=== PATIENT | female | born 1995 | race Caucasian/White ===

== ENCOUNTER 2020-04-11 00:08 | Emergency (ER) | payer OTHER, SELFPAY ==
--- NOTE | ~2020-04-11 | XR_ITS ---
EXAMINATION: XR hand RT min 3V EXAM DATE: 04/11/2020 01:19 INDICATION: Right hand pain. Initial encounter. TECHNIQUE: Right hand frontal, lateral and oblique projections obtained and reviewed. There is no pr ior study for comparison. FINDINGS: There is right-sided acute closed posttraumatic 5th metacarpal neck fracture with about 40 degrees of volar angulation. There is overlying soft tissue swelling. No other acute findings. IMPRESSION: Boxer's fracture. Reviewed, dictated and finalized at location A. AGE DYE STAND LOADER IMPRESSION: Boxer's fracture.
--- NOTE | ~2020-04-11 | XR_ITS ---
EXAMINATION: XR chest 1V portable EXAM DATE: 04/11/2020 01:19 INDICATION: Cough. TECHNIQUE: Portable AP frontal chest x-ray was obtained. There is no prior study for comparison. FINDINGS: The lungs are clear. There are no pleural effusions. The cardiomediastinal silhouette is within normal limits. There is no pneumothorax suspected. The bones and soft tissues are unremarkab le. IMPRESSION: No acute cardiopulmonary findings. Reviewed, dictated and finalized at location A. LITY MANAGER
[2020-04-11 00:10] VITALS: BP 159/87; PULSE 132; RESP 20; TEMP 36.9; O2SAT 98
--- NOTE | 2020-04-11 00:42 | PC.NURSE ---
pt talking with dr pearson. pt able to speak with ocmplete sentences with no cough noted since arrival to er.
[2020-04-11] MEDS: ACETAMINOPHEN/CODEINE (*CRX) 300/30 MG TABLET 1 TAB PO (01:00)
[2020-04-11 02:23] LABS: SARS-CoV-2 Ag Negative (Negative)
[2020-04-11 02:24] VITALS: BP 141/83; PULSE 94; RESP 20; TEMP 37.1; O2SAT 98
--- NOTE | 2020-04-11 02:28 | PC.NURSE ---
no cough noted per pt while in er.
--- NOTE | 2020-04-11 02:47 | ED.GENADULT ---
HPI - General Adult General Chief complaint: Upper Respiratory Infection Stated complaint: possible covid Time Seen by Provider: 04/11/20 00:20 Source: patient and family Limitations: no limitations History of Present Illness HPI narrative: Patient wants to be seen due to bad cough that has gone on for a few days. She has had a headache as well at times. She got mad she says and hit the wall with her right hand and also wishes to be seen for pain in her right hand. She points out swelling in the hand. Injury to hand happened 1 hour ago. Hand pain is moderately severe. She denies fever or chills. She denies any shortness of breath. Related Data Home Medications Medication Instructions Recorded Confirmed melatonin 10 mg BYMOUTH HS 04/11/20 04/11/20 sertraline 50 mg PO DAILY 04/11/20 04/11/20 Review of Systems Constitutional: Constitutional: Reports no additional constitutional complaints Eyes: Eyes: Reports no additional eye complaints ENT: Reports system reviewed and no additional complaints, except as documented Cardiovascular: Cardiovascular: Reports no additional cardiovascular complaints Respiratory: Respiratory: Reports no additional respiratory complaints Gastrointestinal: Gastrointestinal: Reports no additional gastrointestinal complaints Musculoskeletal: Comments: Pain in right hand on medial aspect in anatomical position. Hand is swollen over 5th metacarpal. She appears to have a Boxer's fracture by exam. Integumentary/Breasts: Skin/Breast: Reports system reviewed and no additional complaints, except as docu Neurologic: Comments: Headache at times that sounds like migraine in nature, with palsy of one side of face at times with headache. Psychiatric: Psychiatric: Reports no additional psychiatric complaints Endocrine: Endocrine: Reports no additional endocrine complaints Hematologic/Lymphatic: Hematologic/Lymphatic: Reports no additional hematologic/lymphatic complaints Allergic/Immunologic: Allergic/Immunologic: Reports no additional allergic/immunologic complaints [facility] Past Medical History Medical History (Updated 04/11/20 @ 03:13 by Deepak Leary MD) Anxiety Asthma Depression Migraine Surgical History Surgical History (Updated 04/11/20 @ 03:11 by Deepak Leary MD) No significant past surgical history Exam Const: General: healthy appearing and no acute distress Orientation/consciousness: patient oriented x3 HENMT: Head: normal to inspection Face and sinus: normal facial exam Eyes: Conjunctivae: conjunctivae normal Neck: Neck: normal visual inspection Chest: Chest palpation & inspection: normal inspection of the chest Resp: Effort & Inspection: normal respiratory effort Cardio: Rate: regular rate Rhythm: regular rhythm GI: GI Palp: Yes Soft to palpation Skin: General skin exam: normal color Neuro: General: patient oriented x3 Extrem: Other: Right hand appears to have boxers fracture with 5th metacarpal broken about 3/4 inch above MCP joint. pain is moderately severe at this area. ongoing throbbing since she hit the wall. Psych: Appearance: grossly normal Mental Status: mental status grossly normal Thought content: Yes Normal thought content present Course Course Emergency Course: Exam and history was obtained, then lab and plain films were obtained. She was then sent home with a script for tylenol #3 and an ocl splint for her hand boxers fracture. Vital Signs Vital signs: Vital Signs Temperature 36.9 C 04/11/20 00:10 Pulse Rate 132 H 04/11/20 00:10 Respiratory Rate 20 04/11/20 00:10 Blood Pressure 159/87 H 04/11/20 00:10 Pulse Oximetry 98 04/11/20 00:10 Temperature 37.1 C 04/11/20 02:24 Pulse Rate 94 04/11/20 02:24 Respiratory Rate 20 04/11/20 02:24 Blood Pressure 141/83 H 04/11/20 02:24 Pulse Oximetry 98 04/11/20 02:24 Procedures Other Procedure Procedure 1: Other Procedure: OCl splin
--- NOTE | 2020-04-11 03:32 | ED.GENADULT ---
HPI - General Adult General Chief complaint: Upper Respiratory Infection Stated complaint: possible covid Time Seen by Provider: 04/11/20 00:20 Source: patient and family Limitations: no limitations History of Present Illness HPI narrative: Patient has had cough for days. This has been more an aggravation than a concern Onset (ago): minute(s) Location: head Radiation: non-radiation and proximal Severity: mild Severity scale (1-10): 5 (headache after coughing) Quality: stabbing Relieving factors: none and rest Exacerbating factors: none Treatments prior to arrival: none Related Data Home Medications Medication Instructions Recorded Confirmed melatonin 10 mg BYMOUTH HS 04/11/20 04/11/20 sertraline 50 mg PO DAILY 04/11/20 04/11/20 Review of Systems Review of Systems: All systems reviewed & are unremarkable except as noted in HPI and below ROS unobtainable: Yes unobtainable due to endotracheal tube and unobtainable due to mental status Constitutional: Constitutional: Reports no additional constitutional complaints Eyes: Eyes: Reports no additional eye complaints ENT: Reports system reviewed and no additional complaints, except as documented Cardiovascular: Cardiovascular: Reports no additional cardiovascular complaints Respiratory: Respiratory: Reports no additional respiratory complaints Gastrointestinal: Gastrointestinal: Reports no additional gastrointestinal complaints Genitourinary: Genitourinary: Reports no additional female genitourinary complaints Musculoskeletal: Musculoskeletal: Reports no additional musculoskeletal complaints Integumentary/Breasts: Skin/Breast: Reports system reviewed and no additional complaints, except as docu Neurologic: Reports system reviewed and no additional complaints, except as documented Psychiatric: Psychiatric: Reports no additional psychiatric complaints Endocrine: Endocrine: Reports no additional endocrine complaints Hematologic/Lymphatic: Hematologic/Lymphatic: Reports no additional hematologic/lymphatic complaints Allergic/Immunologic: Allergic/Immunologic: Reports no additional allergic/immunologic complaints ON LICENSE OF [facility] Past Medical History Medical History (Updated 04/11/20 @ 03:13 by Deepak Leary MD) Anxiety Asthma Depression Migraine Surgical History Surgical History (Updated 04/11/20 @ 03:11 by Deepak Leary MD) No significant past surgical history Exam Const: General: no acute distress HENMT: Head: normal to inspection Eyes: Conjunctivae: conjunctivae normal Neck: Neck: normal visual inspection Chest: Chest palpation & inspection: normal inspection of the chest Resp: Effort & Inspection: normal respiratory effort Cardio: Rate: regular rate Rhythm: regular rhythm GI: Percussion: Yes normal to percussion : General: Yes no CVA tenderness Skin: General skin exam: normal color Rashes: no rashes Neuro: General: patient oriented x3 Extrem: General: normal to inspection Psych: Appearance: grossly normal Mental Status: mental status grossly normal Thought content: Yes Normal thought content present Course Course Emergency Course: exam negative, discussed results of film with her. Vital Signs Vital signs: Vital Signs Temperature 36.9 C 04/11/20 00:10 Pulse Rate 132 H 04/11/20 00:10 Respiratory Rate 20 04/11/20 00:10 Blood Pressure 159/87 H 04/11/20 00:10 Pulse Oximetry 98 04/11/20 00:10 Temperature 37.1 C 04/11/20 02:24 Pulse Rate 94 04/11/20 02:24 Respiratory Rate 20 04/11/20 02:24 Blood Pressure 141/83 H 04/11/20 02:24 Pulse Oximetry 98 04/11/20 02:24 Medical Decision Making Vital Signs Vital Signs: Vital Signs Temperature 36.9 C 04/11/20 00:10 Pulse Rate 132 H 04/11/20 00:10 Respiratory Rate 20 04/11/20 00:10 Blood Pressure 159/87 H 04/11/20 00:10 Pulse Oximetry 98 04/11/20 00:10 Temperature 37.1 C 04/11/20 02:24 Pulse Rate 94 04/11/20 02:24
== END 2020-04-11 02:56 | disposition home or self-care (01) ==
PROVIDERS: Emergency Provider Emergency Medicine
DX: S62.339A Displaced fracture of neck of unspecified metacarpal bone, initial encounter for closed fracture (principal); W22.01XA Walked into wall, initial encounter; Z20.828 Contact with and (suspected) exposure to other viral communicable diseases
CPT/HCPCS: 29125; 71045; 73130; 87426; 99283; 99284; A9270

== ENCOUNTER 2022-02-25 11:57 | Emergency (ER) | payer OTHER, MEDICAID, SELFPAY ==
[2022-02-25 11:59] VITALS: BP 125/82; PULSE 67; RESP 18; TEMP 36.7; O2SAT 100
[2022-02-25 12:07] VITALS: BP 125/82; PULSE 73; RESP 12; O2SAT 99
--- NOTE | 2022-02-25 12:15 | ED.ABDPAIN ---
HPI - Abdominal Pain General Chief Complaint: Abdominal Pain Stated Complaint: abd pain 2 weeks post Time Seen by Provider: 02/25/22 12:14 Source: patient Mode of arrival: ambulatory Limitations: no limitations History of Present Illness HPI narrative: 26 years old white female presents with umbilical hernia pain. Patient was sitting, suddenly felt pain at the umbilical hernia, bulging hernia, she denies any fever, chills, nausea, vomiting. Patient reported to having similar symptoms which started September 2021 during . Patient is 2 weeks , vaginal delivery. Related Data Home Medications Medication Instructions Recorded Confirmed melatonin 10 mg BYMOUTH HS 04/11/20 04/11/20 sertraline 50 mg PO DAILY 04/11/20 04/11/20 Allergies Allergy/AdvReac Type Severity Reaction Status Date / Time No Known Allergies Allergy Verified 02/25/22 12:11 Review of Systems Review of Systems: All systems reviewed & are unremarkable except as noted in HPI and below PMFSH Past Medical History Medical History Anxiety Asthma Depression Migraine Surgical History Surgical History No significant past surgical history Exam Narrative: General appearance: Well-developed, well-nourished Skin: Normal color Head: Normocephalic, nontraumatic Eyes: Clear conjunctiva ENT: Oropharynx normal, ears normal, nose normal Neck: Supple, nontender Chest and respiratory: Airway patent, no respiratory distress, no accessory muscle use Heart: Regular rate/rhythm Abdomen: Soft, tender, bulging, umbilical hernia, was easy to be reduced, and 5 seconds with gentle pressure patient feels great immediately Vascular: Normal peripheral pulses, normal capillary refill. Musculoskeletal: Normal range of motion, nontender back Neurologic: Alert and oriented ?3, SENIOR UX DESIGNER is normal as tested, no gross motor deficit Procedures Other Procedure Procedure 1: Other Procedure: I was able to reduce the umbilical hernia with gentle constant pressure, vertically with slight manipulation. 5 seconds. Course POLITICAL RESEARCHER/PA Physician Supervision Reducible umbilical hernia Vital Signs Vital signs: Vital Signs Temperature 36.7 C 02/25/22 11:59 Pulse Rate 67 02/25/22 11:59 Respiratory Rate 18 02/25/22 11:59 Blood Pressure 125/82 02/25/22 11:59 Pulse Oximetry 100 02/25/22 11:59 Oxygen Delivery Room Air 02/25/22 11:59 Temperature 36.7 C 02/25/22 11:59 Pulse Rate 67 02/25/22 11:59 Respiratory Rate 18 02/25/22 11:59 Blood Pressure 125/82 02/25/22 11:59 Pulse Oximetry 100 02/25/22 11:59 Oxygen Delivery Room Air 02/25/22 11:59 MDM - Abdominal Pain Differential Diagnosis Differential diagnosis: Likely abdominal pain and other (Umbilical hernia) Lab Data Result diagrams: 02/25/22 12:27 02/25/22 12:27 Labs: Lab Results 02/25/22 02/25/22 Range/Units 12:27 12:27 WBC 10.3 H (4.5-10.0) K/mm3 RBC 4.85 (4.2-5.4) M/mm3 Hgb 14.5 (12.0-15.0) g/dL Hct 43.7 (37.0-47.0) % MCV 90.1 (80-100) fl MCH 29.9 (26-34) pg MCHC 33.2 (32-36) g/dl RDW 13.8 (11.5-14.5) % Plt Count 315 (150-375) k/mm3 MPV 10.5 H (7.4-10.4) fl Immature Gran % (Auto) 0.4 (0-0.5) % Neut % (Auto) 69.1 (45.5-73.1) % Lymph % (Auto) 23.0 (18.3-44.2) % [place] % (Auto) 5.6 (2.6-8.5) % Eos % (Auto) 1.1 (0-4.4) % Baso % (Auto) 0.8 (0.2-1.2) % Lymph # (Auto) 2.36 (0.9-3.2) K/mm3 [place] # (Auto) 0.6 (0.1-0.6) K/mm3 Eos # (Auto) 0.1 (0-0.3) K/mm3 Baso # (Auto) 0.1 (0
[2022-02-25 12:16] VITALS: BP 123/84; PULSE 75; RESP 17; O2SAT 100
[2022-02-25 12:31] VITALS: BP 156/102; PULSE 77; RESP 14; O2SAT 99
[2022-02-25 12:43] LABS: Basophils Absolute Auto 0.1 K/mm3 (0.0-0.1); Basophils Percent Auto 0.8 % (0.2-1.2); Eosinophils Absolute Auto 0.1 K/mm3 (0-0.3); Eosinophils Percent Auto 1.1 % (0-4.4); Hematocrit 43.7 % (37.0-47.0); Hemoglobin 14.5 g/dL (12.0-15.0); Immature Granulocyte Absolute 0.04 K/mm3 (0.00-0.031); Immature Granulocyte Percent A 0.4 % (0-0.5); Lymphocytes Absolute Auto 2.36 K/mm3 (0.9-3.2); Mean Corpuscular HGB Conc 33.2 g/dl (32-36); Mean Corpuscular Hemoglobin 29.9 pg (26-34); Mean Corpuscular Volume 90.1 fl (80-100); Mean Platelet Volume 10.5 fl (7.4-10.4); Monocytes Absolute Auto 0.6 K/mm3 (0.1-0.6); Monocytes Percent Auto 5.6 % (2.6-8.5); Neutrophils Absolute Auto 7.1 K/mm3 (1.3-6.7); Neutrophils Percent Auto 69.1 % (45.5-73.1); Platelet Count Result 315 k/mm3 (150-375); Red Blood Count 4.85 M/mm3 (4.2-5.4); Red Cell Distribution Width 13.8 % (11.5-14.5); White Blood Count 10.3 K/mm3 (4.5-10.0)
[2022-02-25 12:46] VITALS: BP 144/97; PULSE 80; RESP 14; O2SAT 97
[2022-02-25 12:59] LABS: Alanine Aminotransferase 61 U/L (6-35); Alkaline Phosphatase 117 U/L (38-126); Anion Gap 5 mmol/L (8-16); Aspartate Amino Transferase 36 U/L (14-36); Bilirubin,Total 0.4 mg/dL (0.2-1.3); Blood Urea Nitrogen 11 mg/dL (7-17); Calcium 9.1 mg/dL (8.4-10.2); Carbon Dioxide 26 mmol/L (22-30); Chloride 109 mmol/L (98-107); Estimated Glomerular Filt Rate > 60; Glucose 97 mg/dL (65-110); Lipase 25 U/L (23-300); Potassium 4.1 mmol/L (3.4-5.0); Sodium 140 mmol/L (137-145)
[2022-02-25 13:01] VITALS: BP 127/89; PULSE 94; RESP 18; O2SAT 97
== END 2022-02-25 13:15 | disposition home or self-care (01) ==
PROVIDERS: Emergency Provider Emergency Medicine
DX: K42.9 Umbilical hernia without obstruction or gangrene (principal); J45.909 Unspecified asthma, uncomplicated; F41.9 Anxiety disorder, unspecified; F32.A Depression, unspecified
CPT/HCPCS: 36415; 80053; 83690; 85025; 99283

== ENCOUNTER 2023-03-12 15:58 | Outpatient (RCR) | payer OTHER, MEDICAID, SELFPAY ==
--- NOTE | 2023-03-12 16:53 | OPREHPOC ---
Outpatient Therapy Plan of Care This is a Multidisciplinary Plan of Care that may contain components documented by all disciplines (PT, OT, and ST.) PT Problem 1 PT Problem #1 Knowledge Deficit PT Goal 1 Goal The patient will be independent in a home exercise program to continue after discharge from skilled PT. PT Problem 2 PT Problem #2 Pain PT Goal 1 Goal The patient will report no greater than 2/10 low back pain or left lower extremity pain with sitting and driving. Target Visit 8 PT Goal 1 Goal The patient will demonstrate at least 4/5 lower abdominal, low back extensors, and gluteus medius strength in order to improve tolerance for prolonged positions. Target Visit 8
--- NOTE | 2023-03-12 16:53 | PTOPEVAL1 ---
Assessment and note entered by María Cullen, PT Evaluation Information Assessment Status Evaluation Diagnosis Low Back Pain, L radiculopathy Onset 01/11/23 Subjective Information Birgit Estrada reports she started having pain in the left buttock around january 11 for unknown reasons. She has been taking Tylenol and methocarbol for pain control to sleep. She is noting limitations with sitting and driving for less than 30 minutes. 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 She has had a x-ray that showed normal results. She notes the left lower extremity pain that is more noticable at rest and at night. She also has occasional lower back pain however, it is not as constant as the leg pain. Reported Pain Level Pain Score 0,1: Self Report Assessment PT Clinical Summary Birgit Estrada presents with low back pain and left LE pain that started in January 2023 for unknown reasons. She did have a change in occupations and was coming back after maternity leave. She has difficulty with sitting or driving more than 30 minutes and sleeping. 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 She objectively demonstrates decreased bilateral hamstring flexibility and poor core and hip girdle strength. These are leading to decreased support for her job demands. She will benefit from skilled PT to address these limitations. Plan of Care Interventions Electrical Stimulation,Hot Pack/Cold Pack,Manual Therapy,Neuro Re-education,Patient/Caregiver Educati,Therapeutic Activities,Therapeutic Exercise PT Services Indicated Yes Treatment Frequency and 2 times a week for 8 visits Duration These treatments will address the objective and functional deficits as defined above. The patient will be advanced safely and appropriately in order for the patient to progress towards his/her prior level of function. Additional exercises will be introduced and as well as a comprehensive home exercise program upon discharge, if needed, ?to ensure carryover of functional gains achieved in the clinic. This treatment plan has been reviewed and agreement upon by the patient.
--- NOTE | 2023-05-28 13:49 | PTOPDC ---
Assessment and note entered by María Cullen, PT Evaluation Information Assessment Status Discharge - Pt Not Presen Diagnosis Low back pain, L radiculopathy Onset 01/11/23 Subjective Information Pt not present for discharge. Reported Pain Level Pain Score 0: Self Report Assessment PT Clinical Summary Birgit Estrada completed 5 skilled PT visits and has not been seen since 04/02/23. She will be discharged. Plan of Care PT Services Indicated No
== END 2023-04-02 15:39 | disposition home or self-care (01) ==
LOC: CHSPT 15:58
PROVIDERS: Visit Provider Physician Assistant
DX: M54.42 Lumbago with sciatica, left side (principal)
CPT/HCPCS: 97014; 97110; 97161; G0283

== ENCOUNTER 2024-06-03 01:03 | Day surgery (SDC) | payer OTHER, SELFPAY ==
[2024-05-28 09:35] VITALS: BMI 36.3
--- NOTE | 2024-05-28 09:41 | PC.NURSE ---
Report to the Outpatient Waiting Room, entrance under the green pavilion located off [facility], at time _1000_ on date _[id number]_. Planned Procedure Time: _1200_.? Time changes happen often and if your time is changed the preop area will call you the afternoon before. - You and your visitor will be asked to self-screen and do not enter if you have any COVID symptoms. Please call surgeon if you need to reschedule. - A mask is optional within the hospital at this time. Patients may have clear liquids (water, carbonated beverages, clear teas, apple juice) until 3 hours prior to surgery with a maximum of 20 ounces. - No food from midnight until time of surgery and no smoking. This includes no chewing gum, candy or mints. Take only the following medications with a SIP of water on the morning of surgery: ___Fluoxetine___ DO NOT STOP ANY OF YOUR OTHER PRESCRIPTION MEDICATIONS PRIOR TO SURGERY EXCEPT THE FOLLOWING Medications to discontinue per physician ___None Please no make-up, nail colombian, hairspray, perfume, deodorant, or body powder the day of surgery.? No jewelry (including any body piercings) or valuables the day of surgery, leave them at home.? Please take a shower or bath the night before, or the morning of, surgery with an antibacterial soap.? Wear comfortable, loose fitting clothing.? - Jewelry must be removed prior to entering the operating room.? Rings and piercings that are not removed may be cut off. - The hospital will not accept responsibility for valuables.? - Please leave all valuables, including medications, at home the day of surgery. If you are going home after surgery, a licensed short haul driver must drive you home.? - NO public transportation without another adult if you receive anesthesia. - We recommend that an adult stay with you for 24 hours following discharge. - We also recommend that you do not drive, make important decision, drink alcoholic beverages, or take any drugs that were not prescribed by your health care provider for at least 24 hours after your discharge time. Follow any additional instructions given to you from your surgeon. Telephone instructions given to __Birgit__and asked if any additional questions and then verbalized understanding. Patient advised to call surgeon office or pre surgery nurse liaison [phone] if any additional questions.
[2024-06-03 10:05] VITALS: BP 138/90; PULSE 83; RESP 18; TEMP 36.8; O2SAT 98
[2024-06-03] MEDS: ACETAMINOPHEN 500 MG TABLET 1000 MG PO (10:45)
[2024-06-03] MEDS: LACTATED RINGERS 1,000 ML 30 ML IV CONT (10:50)
[2024-06-03 10:58] LABS: BEDSIDEPREGUCG Negative (Negative)
--- NOTE | 2024-06-03 11:25 | P.PNAN_ITS ---
Anes - Initial Pre Proc Eval Procedure: Operation Date: 06/03/24 12:00 Proposed Procedures p Hysteroscopy Dilation and Curettage with Dahlia Endometrial Ablation - García Duncan MD Date/Time: 06/03/24 11:25 Surgeon: García Duncan MD Pre Op Diagnosis: irregular excessive bleeding Patient Data Age: 28 Gender: F Height: 1.68 m Weight: 102.9 kg Last Vital Signs Temp 36.8 C 06/03/24 10:05 Pulse 83 06/03/24 10:05 Resp 18 06/03/24 10:05 BP 138/90 06/03/24 10:05 Pulse Ox 98 06/03/24 10:05 O2 Del Method Room Air 06/03/24 10:05 Allergies Allergy/AdvReac Type Severity Reaction Status Date / Time nickel Allergy Mild Rash Verified 06/03/24 10:55 Home Medications ?Medication ?Instructions ?Recorded ?Confirmed ?Type fluoxetine 20 mg capsule 20 mg PO DAILY 02/28/22 06/03/24 History sennosides 8.6 mg tablet (senna) 8.6 mg PO DAILY 02/28/22 06/03/24 History Laboratory Tests 06/03/24 10:56 POC Urine HCG, Qual Negative (Negative) Patient hx anesthesia problems: none Family hx anesthesia problems: none Results Review: All pre-operative results and documents have been reviewed as part of the pre- operative evaluation. [facility] Past Medical History Medical History Anxiety Asthma Depression Migraine Surgical History Surgical History Hx of hand surgery 04/2020 No significant past surgical history Family History Family History Other Diabetes mellitus Hypertension Social History Social History Smoking packs per day: 1 Smoking cigarettes per day: 20.0 Years smoked: 10 Smoking pack-years: 10.00 Smoking status: Current every day smoker Tobacco type: cigarettes Additional smoking assessment comments: 1/2ppd cigarettes x 10 years Alcohol intake: current Alcohol use details: Rarely Substance use: never Living arrangements: with family Gender identity (if verbalized by the patient): Female Spiritual care concerns: No Anes - Eval Final PreProcedure Day of Procedure 06/03/24 11:25 Patient weight: obese Heart: regular rate and rhythm Lungs: clear to auscultation Airway: Mallampati scale class 1 Neurological: alert and oriented Last oral intake: >/= 8 hours ASA classification: II Emergent: no Anesthetic plan: proceed Anesthesia type and monitoring: general GIVS and standard monitoring Results Review: All pre-operative results and documents have been reviewed as part of the pre- operative evaluation. Informed Consent: The patient's anesthetic plan and its attendant risks and benefits were discussed with the patient/family/POA. Questions were solicited and answers provided to the satisfaction of the patient/family/POA.
[2024-06-03] MEDS: LIDOCAINE 1% LOCAL INJ 10 ML VIAL INFILTRATE (11:55)
--- NOTE | 2024-06-03 12:04 | PM.IMHP ---
H&P: HPI History of Present Illness Date/Time: 06/03/24 12:04 Chief Complaint: Heavy periods Narrative: 28 y/o with menorrhagia. She has completed childbearing. Her has had a vasectomy. Review of Systems Review of Systems: All systems reviewed & are unremarkable except as noted in HPI and below PMFSH Past Medical History Medical History Depression Anxiety Asthma Migraine Surgical History Surgical History Hx of hand surgery 04/2020 No significant past surgical history Family History Family History Other Diabetes mellitus Hypertension Social History Social History Smoking packs per day: 1 Smoking cigarettes per day: 20.0 Years smoked: 10 Smoking pack-years: 10.00 Smoking status: Current every day smoker Tobacco type: cigarettes Additional smoking assessment comments: 1/2ppd cigarettes x 10 years Alcohol intake: current Alcohol use details: Rarely Substance use: never Living arrangements: with family Gender identity (if verbalized by the patient): Female Spiritual care concerns: No Meds Home Medications and Allergies Home Medications ?Medication ?Instructions ?Recorded ?Confirmed ?Type fluoxetine 20 mg capsule 20 mg PO DAILY 02/28/22 06/03/24 History sennosides 8.6 mg tablet (senna) 8.6 mg PO DAILY 02/28/22 06/03/24 History Allergies Allergy/AdvReac Type Severity Reaction Status Date / Time nickel Allergy Mild Rash Verified 06/03/24 10:55 Vital Signs Vital Signs - 24 hr 06/03/24 10:05 Temperature 36.8 C Pulse Rate 83 Respiratory Rate 18 Blood Pressure 138/90 Pulse Oximetry 98 Oxygen Delivery Room Air Exam Const: Orientation/consciousness: patient oriented x3 Other: Well-developed, well-nourished female in no acute distress. Neck: Thyroid: thyroid normal Lymphatic: no lymphadenopathy noted (in neck, axilla or inguinal nodes) Resp: Effort & Inspection: normal respiratory effort Auscultation: clear to auscultation bilaterally Cardio: Rate: regular rate Rhythm: regular rhythm Heart sounds: S1 normal heart sound present and S2 normal heart sound present GI: Other: ABD: Soft, nontender, nondistended. No guarding or rebound tenderness. No hepatosplenomegaly. : General: Yes no CVA tenderness Other: External genitalia: normal female hair distribution, without lesion. Urethral meatus: no lesion, non prolapsed. Bladder: no mass, nontender Vagina: well-estrogenized, without lesion or discharge. No cystocele or rectocele. Cervix: no lesion or discharge. Uterus: small, anteverted, freely mobile, nontender Adnexa: no mass or tenderness. Anus/perineum: no lesions, nontender Back/Spine/Pelvis: Back: no CVA tenderness Skin: General skin exam: normal color and no rashes or lesions noted Neuro: General: patient oriented x3 Extrem: Other: Extremities: nontender with no edema Psych: Mental Status: mental status grossly normal Affect: normal affect Assessment and Plan Assessment and plan (1) Menorrhagia: Code(s): N92.0 - Excessive and frequent menstruation with regular cycle Status: Acute Assessment and Plan: A: Menorrhagia. P: We have reviewed medical as well as surgical approaches, and she prefers the latter. Specifically, I have offered her a hysteroscopy with dilation and sharp curettage and endometrial ablation. She understands risks of surgery to include risks of anesthesia, risks of pain, infection, bleeding, blood products, thromboembolic phenomena and damage to adjacent structures such as bowel, bladder, ureters, blood vessels and nerves. She understands all these risks and elects to proceed with surgery.
--- NOTE | 2024-06-03 12:06 | WPDHPUPDATE1 ---
History and Physical Update Update Date/Time: 06/03/24 12:06 History and Physical has been reviewed, including an updated exam of the patient. There are NO changes in the patient's condition. Risks, benefits, and alternatives have been discussed and questions answered. Patient agrees to proceed with procedure.
[2024-06-03 12:55] VITALS: BP 121/74; PULSE 79; RESP 16; O2SAT 100
--- NOTE | 2024-06-03 12:59 | W.PM.PROC2 ---
Procedure Note - Detailed Date of Procedure 06/03/24 Pre-op Diagnosis Menorrhagia Post-op Diagnosis Same Procedure Performed Hysteroscopy Dilation and sharp curettage Endometrial ablation Surgeon García Duncan MD Anesthesia MAC and Local (1% lidocaine) Findings Unremarkable endometrial cavity. Both tubal ostia seen. Description of Procedure The patient was taken to the operating room where she was prepared and draped in the usual sterile fashion in the dorsal lithotomy position. The bladder was drained with a red rubber catheter. A sterile speculum was placed into the vagina. The anterior lip of the cervix was grasped with single-tooth tenaculum. Ten mL of 1% lidocaine was administered in a paracervical block. The cervix was then gently dilated using Hegar dilators until a 7 mm dilator could be passed. Hysteroscopy was performed using sterile saline as a distention medium. Findings are as noted above. Sharp curettage was then performed, and endometrial curettings were collected on a Telfa pad and passed off to be sent to pathology. Finally, the the Dahlia device was advanced and endometrial ablation commenced without difficulty. The device was withdrawn and a second look was taken using the hysteroscope. Excellent coverage of the endometrial cavity was noted. The tenaculum was removed. Hemostasis was excellent. Sponge, lap, needle and instrument counts were correct. The patient was awakened and taken to the recovery room in stable condition. I was present and scrubbed through the entire procedure. Implants None Estimated Blood Loss 5 Drains No Packing No Pathology Yes (Endometrial curettings) Complications None Condition Stable Disposition PACU
[2024-06-03 13:25] VITALS: BP 121/74; PULSE 80; RESP 16
--- OUTSIDE RECORDS SUMMARY | 2024-06-04 21:00 | XMS_ITS | Referral Summary ---
Author Organization [place] [id number] [facility] Address [address] [place] [address] Care Team Providers Care Strategy Execution Consultant Name Role Phone Melanie Olvera DO Unavailable [phone] Maria De Jesus Holder Primary Care Provider [phone] Allergies Active Allergy Reactions Criticality Noted Date Comments Nickel Rash Medium 04/13/2020 Medications ibuprofen (ADVIL,MOTRIN) 600 mg tabletIndicatio ns:Cramps Take 1 tablet (600 mg total) by mouth every 6 (six) hours as needed for pain 60 tablet 1 2 Active Additional Information Patient taking differently:600 mg oralEvery 8 hours PRN, pain,Indications: Cramps, Pain, Informant: Self, Reported on 12/18/2023 LORazepam (ATIVAN) 0.5 mg tabletIndicatio ns:anxiety Take 1 tablet (0.5 mg total) by mouth every 8 (eight) hours as needed for anxiety 3 Active topiramate (TOPAMAX) 25 mg tabletIndicatio ns:cluster headaches Take 2 tablets (50 mg total) by mouth nightly 3 Active Contrave 8-90 mg tablet extended releaseIndicati ons:Weight Loss Management for Obese Patient (BMI >= 30) Take 1 tablet by mouth every morning 4 Active senna (SENOKOT) 8.6 mg tabletIndicatio ns:constipation Take 1 tablet by mouth daily as needed for constipation Active Active Problems Problem Noted Date Diagnosed Date Varicose veins of both lower extremities with pa in 11/25/2023 Right carpal tunnel syndrome 10/04/2023 Numbness and tingling in right hand 10/04/2023 Encounter for elective induction of labor 2021 Encounter for supervision of normal in third trimester 01/11/2022 Overview (01/26/2022): CASSANDRA from Dr. Munguia in [place] Dated by LMP c/w 8 wk PNL: O-/I/-/-, NR Pap: normal July 2020 per patient Genetics: normal per patient GCT: 126 S/p Tdap GBS: negative Depression 01/11/2022 Overview (01/11/2022): Mood stable on fluoxetine Rh negative state in antepartum period Overview (01/11/2022): S/p Rhogam 11/09/21 Tobacco use 01/11/2022 Overview (01/11/2022): 1/2 PPD. Patient counseled on risks in . Cessation encouraged. Polycystic ovaries 08/11/2012 Overview (08/16/2016): PCOS (polycystic ovarian syndrome) Resolved Problems Problem Noted Date Diagnosed Date Resolved Date Lower urinary tract infectious disease 08/14/2012 01/11/2022 Overview (08/16/2016): UTI (lower urinary tract infection) Medical examinations/reports status 08/11/2012 01/11/2022 Overview (08/15/2016): Health care maintenance Low back pain 08/11/2012 01/11/2022 Overview (08/15/2016): Low back pain Immunizations Name Administration Dates Next Due DTaP 01/25/1998 DTaP / HiB 03/25/1995, 5,04/12/1994,02/15 HPV, Quadrivalent 08/29/2007,02/25/2007,12/27/19 07 Hep B, Adolescent or Pediatric 07/09/1994,1993,1993 Influenza, Trivalent, IM (MDV) 3,03/06/2010,02/18/2009,03/23 MMR 01/25/1998,12/10/1994 Meningococcal Polysaccharide (Menomune) 01/30/2006 OPV 01/25/1998, 5,07/09/1994,04/12,02/15/1994 Tdap 01/11/2022,12/26/2006 Tetanus toxoid, adsorbed 12/29/2003 Social History Tobacco Use Types Packs/Day Years Used Date Smoking Tobacco: Every Day Cigarettes 0.5 10.1 Started: 2014 Smokeless Tobacco: Never Tobacco Cessation:Ready to Q uit: Not Asked; Counseling Given: Not Answered Comments:Smoking History Packs/day: 0.5 Packs Alcohol Use Standard Drinks/Week Comments No 0 (1 standard drink = 0.6 oz pur e alcohol) AUDIT-C Answer Date Recorded Q1: How often do you have a drink containing alc ohol? Monthly or less 12/18/2023 Q2: How many drinks containi ng alcohol do you have on a typical day when you are drinking? 1 or 2 12/18/2023 Q3: How often do you have si x or more drinks on one occasion? 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 [employer]INT[employer]AR[employer] Gender Identity Not on file Sexual Orientation Not on file Occupation Industry Job Start Date Job End Date Unemployed Not on file Not on file Not on file Last Filed Vital Signs Vital Sign Reading Time Taken Comments Blood Pressure 114/81 11/25/2023 3:00 PM CDT Pulse 91 11/25/2023 3:00 PM CDT Temperature 36.9 ??C (98.4 ??F) 11/25/2023 3:00 PM CD T Respiratory Rate 92 11/25/2023 3:00 PM CDT Oxygen Saturation 99% 11/25/2023 3:00 PM CDT Inhaled Oxygen Concentration - - Weight 104.3 kg (230 lb) 12/18/2023 8:10 AM CDT Height 170.2 cm (5' 7 ) 12/18/2023 8:10 AM CDT Body Mass Index 36.02 12/18/2023 8:10 AM CDT Plan of Treatment Not on file Procedures Procedure Name Priority Date/Time Associated Diagnosis Comments PAP WITH REFLEX TO HIGH RISK HPV Routine 03/22/2022 11:29 AM [employer] Screening for malignant neoplasm of cervix SERUM HEPATITIS C AB Routine 05/12/2014 11:32 AM [employer] from Last 3 Months or Most Recently Relevant to Health Maintenance Results * Pap with reflex to High Risk HPV (03/22/2022 11:29 AM [employer]) Thin prep (Pap test) 03/22/2022 11:29 AM [employer] 03/22/2022 11:29 AM [employer] Narrative PATHOLOGY CH - 03/26/2022 1:38 PM [employer] [facility] Department of Pathology [address] [place] [address] Final Report Note to Patients: This report may contain a detailed description of human tissue sent by a health care provider to the laboratory for pathologic evaluation. The content of this report is essential for diagnosis and may provide important critical findings. This information may be unfamiliar to patients to review without a medical professional present. It is advised that the patient review this report in the presence of a health care provider who can answer questions and explain the details. Patient Name: ??SATYA ERICKSON Janet Address: ??[address] [place] [address], ?? [place], [place] ??[address]- Gender: ??F : ??1995 (Age: 26) Service: ??Laboratory Location: ?? Hospital #: ??[id number] Patient Type: ?? SPECIMEN Taken: ??03/22/2022 Received: ??03/22/2022 Accessioned:: ??03/23/2022 Reported: ??03/26/2022 Physician(s): Kalpesh Zuleta, D.O. Diagnosis: Source of Specimen: ? Imaged Thinprep Pap Test w/ Reflex HPV - Air Conditioning Unit Assembler Cytologic Material Specimen Adequacy: ?- Satisfactory for evaluation; endocervical/transformation zone component present General Category: ?- Negative for intraepithelial lesion or malignancy HUMBERTO Rayo(ASCP) Report Electronically Reviewed and Signed Out By ??HUMBERTO Rayo(ASCP) ??03/26/2022 13:38:59Specimen(s) Received: A: Imaged Thinprep Pap Test w/ Reflex HPV - Air Conditioning Unit Assembler Cytologic Material Clinical History: Menstrual History: Post-menopausal The Pap test is a screening test used to aid in the detection of cervical cancer and its precursors. ??It should not be the sole means by which malignant and premalignant lesions are diagnosed. ??Both false negative and false positive results may occur. ?? It also has poor sensitivity for the detection of endometrial lesions and should not be used to evaluate suspected endometrial abnormalities. ??For these reasons it is most important to obtain Pap tests at regular intervals. The performance characteristics of some immunohistochemical stains, fluorescence in-situ hybridization tests and immunophenotyping by flow cytometry cited in this report (if any) were determined by the Surgical Pathology Department at [facility] as part of an ongoing vice president quality program and in compliance with federally mandated regulations drawn from the Clinical Laboratory Improvement Act of 1988 (CLIA '88). ??Some of these tests rely on the use of analyte specific reagents and are subject to specific labeling requirements by the US Food and Drug Administration. ??Such diagnostic tests may only be performed in a facility that is certified by the Department of Health and Human Services as a high complexity laboratory under CLIA '88. The FDA has determined that such clearance or approval is not necessary. ??This test is used for clinical purposes. ??It should not be regarded as investigational or for research. ??Nevertheless, federal rules concerning the medical use of analyte specific reagents require that the following disclaimer be attached to the report: This test was developed and its performance characteristics determined by the Surgical Pathology Department [facility]. ??It has not been cleared or approved by the U. S. Food and Drug Administration. Melanie Olvera DO LAB CYTOLOGY ORDERABLES Final [place] [address] [place] [address] * Serum Hepatitis C ab (05/12/2014 11:32 AM [employer]) HCV ab Negative Negative HISTORICAL RESULTS Serum 05/12/2014 11:3 2 AM [employer] Lurdes Wang MD LAB BLOOD ORDERABLE S Final Result HISTORICAL RESULTS from Last 3 Months or Most Recently Relevant to Health Maintenance Insurance IDPA CIGNA IBEW Member Subscriber Plan / Payer (Ef fective 2023-Present) Name:Satya Erickson Relation to Subscriber:Self Name:Staya Erickson Payer ID:[id number] (NAIC) Group ID:[id number] Type:CIGNA HMO/PPO Address: [address] [place] [address] [place] Member Subscriber Plan / Payer (Ef fective 2023-Present) Name:Satya Erickson Relation to Subscriber:Self Name:Satya Erickson Payer ID:[id number] (NAIC) Group ID:[id number] Type:ISMAEL HMO/PPO Address: [facility] [id number] [place] [address] Advance Directives For more information, please contact: [phone] * Full Code (Latest Code Status on File) Date Activated Date Inactivated Comments 02/07/2022 12:43 PM 02/08/2022 4:59 PM * Full Code Date Activated Date Inactivated Comments 02/07/2022 3:26 AM 02/07/2022 12:43 PM Full CPR in case of cardiopulmonary arrest Care Teams Strategy Execution Consultant Relationship Specialty Start Date End Date Maria De Jesus Holder PA [address] [address] [place] [address] PCP - General Screener And Blender Operator 07/08/23 Melanie Olvera DO [address] [address] Consulting Physician Obstetrics and Gynecology 02/08/22
--- OUTSIDE RECORDS SUMMARY | 2024-06-04 21:00 | XMS_ITS | Encounter Summary ---
Author Organization [facility] Address [address] [place] [address] Phone Care Team Providers Care Copy Operator Name Role Phone Shailesh Munguia MD Primary Care Provider [phone] Melanie Olvera DO Unavailable [phone] Maria De Jesus Holder Primary Care Provider [phone] Encounter Details Date Type Department Care Team (Late st Contact Info) Description 11/09/2021 Orders Only [facility] [address] [place] [address] Scanning, Provider Social History Tobacco Use Types Packs/Day Years Used Date Smoking Tobacco: Heavy Smoker Comments:Smoking History Pac ks/day: 0.5 Packs Alcohol Use Standard Drinks/Week Comments No 0 (1 standard drink = 0.6 oz pur e alcohol) Comments Unknown Sex and Gender Information Value Date Recorded Sex Assigned at Not on file 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 Gender Identity Not on file Sexual Orientation Not on file documented as of this encounter Plan of Treatment Not on file documented as of this encounter Procedures Procedure Name Priority Date/Time Associated Diagnosis Comments SCAN - LABS 11/09/2021 documented in this encounter Results * SCAN - LABS (11/09/2021) us Provider Scanning Final Result documented in this encounter Visit Diagnoses Not on filedocumented in this encounter Care Teams Copy Operator Relationship Specialty Start Date End Date Shailesh Munguia MD [address] [place] [address] PCP - General Family Medicine 04/01/20 07/07/23 Maria De Jesus Holder PA [address] [address] [place] [address] PCP - General Molding Line Operator 07/08/23 Melanie Olvera DO [address] [place] [address] Consulting Physician Obstetrics and Gynecology 02/08/22 documented as of this encounter
--- OUTSIDE RECORDS SUMMARY | 2024-06-04 21:00 | XMS_ITS | Encounter Summary ---
Author Organization [facility] Address [address] [place] [address] Phone Care Team Providers Care Gasoline Plant Operator Name Role Phone Maria De Jesus Holder Primary Care Provider + Shane Sena MD Unavailable [phone] Encounter Details Date Type Department Care Team (Late st Contact Info) Description 05/22/2024 Results Follow-Up [facility] - Family Medicine - [place] [address] [place] [address] Maria De Jesus Holder [address] [place] [address] Social History Tobacco Use Types Packs/Day Years Used Date Smoking Tobacco: Every Day Cigarettes 1 10 Smokeless Tobacco: Never Alcohol Use Standard Drinks/Week Comments Not Currently 0 (1 standard drink = 0.6 oz pur e alcohol) [facility] Utilities Answer Date Recorded In the past 12 months has [employer] electric, gas, oil, or water company threatened to shut off services in your home? No 05/19/2024 Social Connection and Isolation Panel [NHANES] A nswer Date Recorded In a typical week, how many times do you talk on the phone with family, friends, or neighbors? Once a week 05/19/19 How often do you get togethe r with friends or relatives? Once a week 05/19/2024 How often do you attend chur ch or bahai services? 1 to 4 times per year 05/19/2024 Do you belong to any clubs o r organizations such as yarsani groups, unions, fraternal or athletic groups, or school groups? No 05/19/2024 How often do you attend meet ings of the clubs or organizations you belong to? Never 05/19/2024 Are you , , di vorced, , never , or living with a partner? 05/19/2024 AUDIT-C Answer Date Recorded Q1: How often do you have a drink containing alc ohol? Monthly or less 05/19/2024 Q2: How many drinks containi ng alcohol do you have on a typical day when you are drinking? 1 or 2 05/19/2024 Q3: How often do you have si x or more drinks on one occasion? Never 05/19/2024 Overall Financial Resource Strain (CARDIA) Answe r Date Recorded How hard is it for you to pa y for the very basics like food, housing, medical care, and heating? Not hard at all 05/19/2024 PHQ-2 Answer Date Recorded Total Score - Questions 1-9 5 01/2025 [facility] - Occupational Stress Questionnaire Answer Date Recorded Do you feel stress - tense, restless, nervous, or anxious, or unable to sleep at night because your mind is troubled all the time - these days? To some extent 05/19/2024 Exercise Vital Sign Answer Date Recorde d On average, how many days pe r week do you engage in moderate to strenuous exercise (like a brisk walk)? 1 day 05/19/2024 On average, how many minutes do you engage in exercise at this level? 60 min 05/19/2024 Hunger Vital Sign Answer Date Recorded Within the past 12 months, y ou worried that your food would run out before you got the money to buy more. Never true 05/19/19 25 Within the past 12 months, t he food you bought just didn't last and you didn't have money to get more. Never true 05/19/2024 PRAPARE - Transportation Answer Date Re corded In the past 12 months, has l ack of transportation kept you from medical appointments or from getting medications? No 11/2024 In the past 12 months, has l ack of transportation kept you from meetings, work, or from getting things needed for daily living? No 05/19/2024 Housing Stability Vital Sign Answer Pancho e Recorded In the last 12 months, was t here a time when you were not able to pay the mortgage or rent on time? No 05/19/2024 In the past 12 months, how m any times have you moved where you were living? 0 05/19/2024 At any time in the past [address] [facility], were you homeless or living in a halfway (including now)? No 05/19/2024 Education Answer Date Recorded What is the highest level of school you have completed or the highest degree you have received? Some college, no degree 03/11/2023 Sexually Active Control Partners Comments Yes I.U.D. Male Comments Unknown Sex and Gender Information Value Date Recorded Sex Assigned at Not on file Legal Sex Female 1:14 PM CDT Gender Identity Not on file Sexual Orientation Not on file documented as of this encounter Plan of Treatment Upcoming Encounters Date Type Department Care Team (Late st Contact Info) Description 11/18/2024 10:30 AM CDT Office Visit [facility] - Family Medicine [facility] [address] [place] [id number] Maria De Jesus Holder [address] [place] [address] documented as of this encounter Visit Diagnoses Not on filedocumented in this encounter Additional Health Concerns Assessment Noted Time PHQ-9 Depression Total Score: 5 05/21/19 25 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
--- OUTSIDE RECORDS SUMMARY | 2024-06-04 21:00 | XMS_ITS | Patient Health Summary ---
Author Organization [facility] Address [address] [facility] [place] [address] Care Team Providers Care Strategic Account Manager Name Role Phone Karina Eduardo MD Primary Care Provider Note from [facility],non-owned Affiliates and Associated Physician Practices is amultiple site organization consisting of ambulatory clinics and hospital sitesin [place], [place], [place] and [place]. This disclosure is being madepursuant to the Care Everywhere program and may not contain all information available regarding this patient. Last updated 18.[facility] Social History Tobacco Use Types Packs/Day Years Used Date Smoking Tobacco: Never Assessed Sex and Gender Information Value Date Recorded Sex Assigned at Not on file Gender Identity Not on file Sexual Orientation Not on file Care Teams Strategic Account Manager Relationship Specialty Start Date End Date Karina Eduardo MD [address] [place] [address] PCP - General 02/09/10
--- OUTSIDE RECORDS SUMMARY | 2024-06-04 21:00 | XMS_ITS | Encounter Summary ---
Author Organization [facility] Address [address] [place] [address] Phone Care Team Providers Care Research And Development Researcher Name Role Phone Shailesh Munguia MD Primary Care Provider [phone]- [phone] Melanie Olvera DO Unavailable [phone] Maria De Jesus Holder Primary Care Provider [phone] Encounter Details Date Type Department Care Team (Late st Contact Info) Description 06/12/2021 Orders Only [facility] [address] [place] [address] Scanning, Provider Social History Tobacco Use Types Packs/Day Years Used Date Smoking Tobacco: Heavy Smoker Comments:Smoking History Pac ks/day: 0.5 Packs Alcohol Use Standard Drinks/Week Comments No 0 (1 standard drink = 0.6 oz pur e alcohol) Comments Unknown Sex and Gender Information Value Date Recorded Sex Assigned at Not on file 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 Gender Identity Not on file Sexual Orientation Not on file documented as of this encounter Plan of Treatment Not on file documented as of this encounter Procedures Procedure Name Priority Date/Time Associated Diagnosis Comments SCAN - LABS 06/12/2021 documented in this encounter Results * SCAN - LABS (06/12/2021) us Provider Scanning Final Result documented in this encounter Visit Diagnoses Not on filedocumented in this encounter Care Teams Research And Development Researcher Relationship Specialty Start Date End Date Shailesh Munguia MD [address] [place] [address] PCP - General Family Medicine 04/01/20 07/07/23 Maria De Jesus Holder PA [address] [address] [place] [address] PCP - General Itinerant Teacher Assistant 07/08/23 Melanie Olvera DO [address] [place] [address] Consulting Physician Obstetrics and Gynecology 02/08/22 documented as of this encounter
--- OUTSIDE RECORDS SUMMARY | 2024-06-04 21:00 | XMS_ITS | Clinical Summary ---
Author Organization [facility] Address [address] [place] [address]. [place], [place] [id number] [place] [id number] Care Team Providers Care Social Services Assistant Name Role Phone Shailesh Munguia MD Primary Care Provider Allergies Active Allergy Reactions Criticality Noted Date Comments Nickel Rash Low 04/13/2020 Medications FLUoxetine 20 MG capsule Take 20 mg by mouth daily. Active vitamin 27-1 MG tablet Take 1 tablet by mouth daily. Active docusate sodium 100 MG capsule Take 100 mg by mouth 2 (two) times daily as needed for Constipation. Active polyethylene glycol packet Take 17 g by mouth as needed. Dissolve powder in 240 mL water Active Active Problems Problem Noted Date Diagnosed Date Closed displaced fracture of neck of fifth metacarpal bone of right hand, initial encounter 04/11/2020 Family History Medical History Relation Comments No Known Problems Brother 1 No Known Problems Brother 2 No Known Problems Brother 3 Diabetes Father No Known Problems Maternal Grandfather Heart Maternal Grandmother Heart Mother Diabetes Paternal Grandmother No Known Problems Sister 1 No Known Problems Sister 2 Relation Status Comments Brother 1 Alive Brother 2 Alive Brother 3 Alive Father Alive Maternal Grandfather Alive Maternal Grandmother Alive Mother Alive Paternal Grandfather Alive Paternal Grandmother Sister 1 Alive Sister 2 Alive Social History Tobacco Use Types Packs/Day Years Used Date Smoking Tobacco: Every Day Cigarettes 0.5 8 Smokeless Tobacco: Never Alcohol Use Standard Drinks/Week Comments Not Currently 0 (1 standard drink = 0.6 oz pur e alcohol) AUDIT-C Answer Date Recorded Q1: How often do you have a drink containing alc ohol? 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 Gender Identity Not on file Sexual Orientation Not on file Last Filed Vital Signs Vital Sign Reading Time Taken Comments Blood Pressure 134/73 10/12/2021 6:38 PM CDT Pulse 90 10/12/2021 6:38 PM CDT Temperature 37.1 ??C (98.8 ??F) 10/12/2021 6:37 PM CD T Respiratory Rate 20 10/12/2021 6:46 PM CDT Oxygen Saturation 98% 04/13/2020 1:45 PM NETWORK MANAGEMENT SPECIALIST Inhaled Oxygen Concentration - - Weight 117.9 kg (260 lb) 05/24/2020 10:41 AM NETWORK MANAGEMENT SPECIALIST Height 167.6 cm (5' 6 ) 05/24/2020 10:41 AM NETWORK MANAGEMENT SPECIALIST Body Mass Index 41.97 05/24/2020 10:41 AM NETWORK MANAGEMENT SPECIALIST Plan of Treatment Health Maintenance Due Date Last Done Comments Cervical Cancer Screening Pa p Smear (Age 30 to 64) Every 3 Years 1993 Annual Physical 1996 Pneumococcal Vaccine: Pediat rics (0 to 5 Years) and At-Risk Patients (6 to 64 Years) (1 of 2 - PCV) 12/08/1999 Hepatitis C 12/08/2011 DTaP, Tdap and Td Vaccines ( 1 - Tdap) 2012 Hepatitis B Vaccines (1 of 3 - 19+ 3-dose series) 2012 Cervical Cancer Screening Pa p with HPV Testing (Age 30 to 64) Every 5 Years 12/08/2023 Cervical Cancer Screening with HPV 12/08/2023 COVID-19 Vaccine ( - 2023-2 5 season) 2024 Influenza Adult (#1) 2024 HPV Vaccines Aged Out No longer eligi ble based on patient's age to complete this topic Meningococcal Vaccine Aged Out No jona radha eligible based on patient's age to complete this topic RSV Immunizations Under 20 Months Aged Out No longer eligible based on patient's age to complete this topic Medical Devices Implanted Type Area Nutrition Associate Device Identifier Shelf Expiration Date Model / Serial / Lot 1.7mm 10-Hole Narrow T- Plate Implanted:Qty: 1 on 04/13/2020 by Lukas Rogers MD at [facility] Right: Finger [id number] / / 1.7 X 8mm Nl Screw Implanted:Qty: 1 on 04/13/2020 by Lukas Rogers MD at [facility] Right: Finger [id number] / / 1.7 X 11mm L Screw Implanted:Qty: 1 on 04/13/2020 by Lukas Rogers MD at [facility] Right: Finger [id number] / / 1.7 X 9mm L Screw Implanted:Qty: 2 on 04/13/2020 by Lukas Rogers MD at [facility] Right: Finger [id number] / / 1.7 X 10mm L Screw Implanted:Qty: 1 on 04/13/2020 by Lukas Rogers MD at [facility] Right: Finger [id number] / / 1.7 X 7mm Nl Screw Implanted:Qty: 1 on 04/13/2020 by Lukas Rogers MD at [facility] Right: Finger [id number] / / 1.7 X 7mml Screw Implanted:Qty: 2 on 04/13/2020 by Lukas Rogers MD at [facility] Right: Finger [id number] / / Explanted Type Area Nutrition Associate Device Identifier Shelf Expiration Date Model / Serial / Lot 1.4mm Drill Bit Implanted:Qty: 1 Explanted:Qty: 1 on 04/13/2020 at [facility] Right: Finger [id number] / / Insurance MEDICAID [facility] Care Teams Social Services Assistant Relationship Specialty Start Date End Date Shailesh Munguia MD [address] [place] [address] PCP - General FAMILY PRACTICE 03/25/20
--- OUTSIDE RECORDS SUMMARY | 2024-06-04 21:00 | XMS_ITS | Clinical Summary ---
Author Organization [facility] Address [address] [place] [address] Care Team Providers Care Mortgage Servicing Specialist Name Role Phone Karina Eduardo MD Primary Care Provider Source Comments [facility],non-owned Affiliates and Associated Physician Practices is amultiple site organization consisting of ambulatory clinics and hospital sitesin [place], [place], [place]. This disclosure is being madepursuant to the Care Everywhere program and may not contain all information available regarding this patient. Last updated 18.[facility] Social History Tobacco Use Types Packs/Day Years Used Date Smoking Tobacco: Never Assessed Sex and Gender Information Value Date Recorded Sex Assigned at Not on file Gender Identity Not on file Sexual Orientation Not on file Plan of Treatment Health Maintenance Due Date Last Done Comments PAP SMEAR 1993 HIV SCREENING 2008 HEPATITIS C SCREENING 12/03/2011 DTAP/TDAP/TD VACCINES (1 - Tdap) 2012 HEPATITIS B VACCINE (1 of 3 - 19+ 3-dose series) 2012 COVID-19 VACCINE (1 - 2023- season) 2024 INFLUENZA VACCINE (#1) 2024 , 02/23/2013, 03/06/2010, Additional history exists DEPRESSION SCREENING 05/13/2024 ZOSTER VACCINE (1 of 2) 12/08/2043 HIB VACCINE Aged Out No longer eligi ble based on patient's age to complete this topic HPV VACCINE Aged Out No longer eligi ble based on patient's age to complete this topic MENINGOCOCCAL (Group B) VACCINE Aged Out No longer eligible based on patient's age to complete this topic MENINGOCOCCAL VACCINE Aged Out No jona radha eligible based on patient's age to complete this topic PNEUMOCOCCAL VACCINE Aged Out No long er eligible based on patient's age to complete this topic Care Teams Mortgage Servicing Specialist Relationship Specialty Start Date End Date Karina Eduardo MD [address] [place] [id number] PCP - General 02/09/10
--- OUTSIDE RECORDS SUMMARY | 2024-06-04 21:00 | XMS_ITS | Clinical Summary ---
Author Organization [facility] Address [address] [place] [address] Phone Care Team Providers Care Spacer Type Bar And Segment Name Role Phone Maria De Jesus Holder YADY Primary Care Provider + Shane Sena MD Unavailable Allergies Active Allergy Reactions Criticality Noted Date Comments Nickel Rash Low 04/13/2020 Medications Sennosides (SENNA LAX PO) Take by mouth. Active SUMAtriptan (IMITREX) 50 MG Tablet Take 1 Tablet by mouth once as needed for Headaches for up to 1 dose. Use as directed. May repeat dose in 2 hours if headache recurs. 9 Tablet 3 05/02/20 23 Active LORazepam (ATIVAN) 0.5 MG TabletIndicatio ns:Anxiety Take 1 Tablet by mouth every 8 hours as needed for Anxiety. 15 Tablet 02/17/20 24 Active tranexamic Acid (LYSTEDA) 650 MG Tablet TAKE 2 TABLETS BY MOUTH 3 TIMES A DAY DAYS 1-4 OF CYCLE 04/18/20 24 Active FLUoxetine (PROzac) 20 MG Capsule Take 1 Capsule by mouth daily. 90 Capsule 3 05/21/19 25 Active Naltrexone-buPR OPion HCl ER (Contrave) 8-90 MG TABLET SR 12 HRIndications:B MA 36.0-36.9,adult Start 1 tab by mouth in the am for 1 week, then 1 tab twice daily for 1 week, then 2 tabs in the am and 1 tab in the pm for 1 week, then 2 tabs twice daily 70 Tablet 05/21/19 25 Active levonorgestrel (MIRENA) 20 MCG/DAY IUD 1 Intra Uterine Device by Intrauterine route once. 025 Discontin ued(Med List Clean Up) FLUoxetine (PROzac) 20 MG Capsule TAKE 1 CAPSULE BY MOUTH EVERY DAY 90 Capsule 04/08/20 23 025 Discontin ued(Reord er) topiramate (TOPAMAX) 25 MG TabletIndicatio ns:Frequent headaches Take 2 Tablets by mouth nightly. 180 Tablet 1 05/02/20 23 025 Discontin ued(Med List Clean Up) venlafaxine (EFFEXOR-XR) 37.5 MG CAPSULE SR 24 HR Take 1 Capsule by mouth daily. 90 Capsule 05/02/20 23 025 Discontin ued(Med List Clean Up) celecoxib (CeleBREX) 200 MG Capsule Take 1 Capsule by mouth 2 times daily as needed for Moderate or more severe pain. 60 Capsule 3 05/28/19 24 025 Discontin ued(Med List Clean Up) methocarbamol (ROBAXIN) 750 MG Tablet Take 1 Tablet by mouth 4 times daily as needed (muscle spasm). 60 Tablet 05/28/19 24 025 Discontin ued(Med List Clean Up) hydrOXYzine (ATARAX) 50 MG TabletIndicatio ns:Insomnia, unspecified type Take 1 Tablet by mouth nightly as needed for Sleep. 30 Tablet 06/21/19 24 025 Discontin ued(Med List Clean Up) Phentermine HCl 37.5 MG TabletIndicatio ns:BMI 34.0-34.9,adult Take 1 Tablet by mouth every morning (before breakfast). 30 Tablet 07/03/19 24 025 Discontin ued(Med List Clean Up) semaglutide-sarah ght management (Wegovy) 0.5 MG/0.5ML Solution Auto-injectorIn dications:BMI 34.0-34.9,adult 0.5 mL by Subcutaneous route once a week. 2 mL 07/11/19 24 025 Discontin ued(Med List Clean Up) Active Problems Problem Noted Date Diagnosed Date Anxiety and depression 05/16/2022 Frequent headaches 05/16/2022 BMI 34.0-34.9,adult 05/16/2022 Encounters Date Type Department Care Team Description 05/22/2024 Results Follow-Up [facility] [address] [place] [address] Maria De Jesus Holder PAC 05/21/2024 3:30 PM [facility] Office Visit [facility] [address] [place] [address] Maria De Jesus Holder PAC Well adult exam (Primary Dx); BMI 36.0-36.9,adult; Screening-pulmonary TB; Encounter for hepatitis C screening test for low risk patient Discharge Disposition: Discharged to home or Selfcare 05/19/2024 Travel from Last 3 Months Immunizations Immunization Administration Dates Next Due DTAP VACCINE 01/25/1998 DTAP/HIB COMBINED VACCINE 03/25/1995,,04/12/1994,02/15 DTP-Hib 04/12/1994,02/15/1994 Hepatitis B Vaccine, Pediatric/adolescent 07/09/1994,01/11/1994,1993 Human Papillomavirus Vaccine (HPV), quadrivalent 08/29/2007,02/25/2007,12/26/2006 Influenza Vaccine, Quadrivalent, PF 07/04/2022 Influenza, Seasonal, Injecta ble, Undefined 02/23/2013,03/06/2010,02/18/2009,03/23 MMR Vaccine 01/25/1998,12/10/1994 Meningococcal Polysaccharide Vaccine (MPSV4) 01/30/2006 OPV 01/25/1998, 5,07/09/1994,04/12,02/15/1994 Pneumococcal conjugate PCV20 , polysaccharide [id number] conjugate, adjuvant, PF 07/04/2022 TDAP Vaccine 01/11/2022,12/21/2014,12/26/2006 Tetanus Vaccine 12/29/2003 Family History Medical History Relation Name Comments No Known Problems Brother 1 No Known Problems Brother 2 No Known Problems Brother 3 Diabetes Father High Cholesterol Father Hypertension Father Rashes/Skin Problems Father No Known Problems Mother No Known Problems Sister 1 No Known Problems Sister 2 Relation Name Status Comments Brother 1 Alive Brother 2 Alive Brother 3 Alive Father Alive Mother Alive Sister 1 Alive Sister 2 Alive Social History Tobacco Use Types Packs/Day Years Used Date Smoking Tobacco: Every Day Cigarettes 1 10 Smokeless Tobacco: Never Tobacco Cessation:Ready to Q uit: Not Asked; Counseling Given: Not Answered Alcohol Use Standard Drinks/Week Comments Not Currently 0 (1 standard drink = 0.6 oz pur e alcohol) [facility] Utilities Answer Date Recorded In the past 12 months has th e Emissary, gas, oil, or water [employer] threatened to shut off services in your home? No 05/19/2024 Social Connection and Isolation Panel [NHANES] A nswer Date Recorded In a typical week, how many times do you talk on the phone with family, friends, or neighbors? Once a week 05/19/19 How often do you get togethe r with friends or relatives? Once a week 05/19/2024 How often do you attend [facility] or adventist services? 1 to 4 times per year 05/19/2024 Do you belong to any clubs o r organizations such as holiness groups, unions, fraternal or athletic groups, or [...] Total Score - Questions 1-9 5 01/2025 [facility] [place] of Occupat ional Health - Occupational Stress Questionnaire Answer Date Recorded [...] any time in the past 12 m [facility], were you homeless or living in a senior care (including now)? No 05/19/2024 Education Answer Date [...] Sign Reading Time Taken Comments Blood Pressure 102/72 05/21/2024 3:17 PM [facility] Pulse 94 05/21/2024 3:17 PM [facility] Temperature 37.1 ??C (98.8 ??F) 05/21/2024 3:17 PM CS T Respiratory Rate 16 07/11/2022 10:29 AM [facility] Oxygen Saturation 98% 05/21/2024 3:17 PM [facility] Inhaled Oxygen Concentration - - Weight 102.5 kg (226 lb) 05/21/2024 3:17 PM [facility] Height 167.6 cm (5' 6 ) 05/21/2024 3:17 PM [facility] Body Mass Index 36.48 05/21/2024 3:17 PM [facility] Plan of Treatment Upcoming Encounters Date Type Department Care Team (Late st Contact Info) Description 11/18/2024 10:30 AM CDT Office Visit [facility] [address] [place] [address] Maria De Jesus Holder, PAC [address] [place] [address] Health Maintenance Due Date Last Done Comments HPV/Cotest 12/08/2023 Influenza Immunization (#1) 2024 07/04/2022 SARS-COV-2 Immunization ( season) 2024 Cervical Cancer Screening (CCS) 03/22/2025 Pap Smear 03/22/2025 03/22/2022 DTaP/Tdap/Td Immunization (9 - Td or Tdap) 01/12/2032 01/11/2022, 12/21/2014, 12/26/2006, Additional history exists Respiratory Syncytial Virus (RSV) Immunization (Adult) (1 - 1-dose 75+ series) 2068 Hepatitis B Immunization Completed 995, 01/11/1994, 1993 Meningococcal Immunization (ACWY) Aged Out 01/30/2006 No longer eligible based on patient's age to complete this topic Pneumococcal Immunization Combined Completed 07/04/2022 Hepatitis C Virus (HCV) Screening Completed 05/21/2024 Rotavirus Immunization Aged Out No lo nger eligible based on patient's age to complete this topic Medical Devices Implanted Type Area Transit Department Clerk Device Identifier Shelf Expiration Date Model / Serial / Lot Mesh Srg Ventralight St Sepra Echo Ps 6in Mfl Ltwt Abs Loprfl Strl Seprafilm Polyp Hydrogel [employer] - [id number] Implanted:Qty: 1 on 05/29/2022 by Shane Sena MD at [facility] IMPLANT N/A: Umbilical [employer] 11/08/2023 [id number] / [id number] Description:Ventralight ST Low profile bioresorbable coated permanent mesh for soft tissue reconstruction [place]send mesh Bard Partially absorbable Staple Tacker Optifix At - [id number] Implanted:Qty: 2 on 05/29/2022 by Shane Sena MD at [facility] IMPLANT N/A: Umbilical [employer] 07/10/2023 [id number] / [id number] / [id number] Description:Optifix AT Absorbable fixation system with articulating technology 37cm x 5mm Cannula 30 absorbable fasteners [employer] Procedures Procedure Name Priority Date/Time Associated Diagnosis Comments CBC WITH AUTO DIFFERENTIAL Routine 05/21/2024 4:19 PM [facility] Well adult exam HEPATITIS C ANTIBODY Routine 05/21/2024 4:19 PM [employer] [employer] Encounter for hepatitis C screening test for low risk patient QUANTIFERON-TB GOLD PLUS Routine 05/21/2024 4:19 PM [employer] [employer] Screening-pulmonary TB LIPOPROTEIN (A) Routine 05/21/2024 4:19 PM [facility] [employer] Well adult exam LIPID PANEL Routine 05/21/2024 4:19 PM [employer] Well adult exam THYROID STIMULATING HORMONE (TSH) Routine 05/21/2024 4:19 PM [employer] [employer] Well adult exam COMPLETE BLOOD COUNT (CBC) WITH DIFF Routine 05/21/2024 4:19 PM [employer] [employer] Well adult exam CMP (COMPREHENSIVE METABOLIC PANEL) Routine 05/21/2024 4:19 PM [employer] [employer] Well adult exam from Last 3 Months Results * QUANTIFERON-TB GOLD PLUS (05/21/2024 4:19 PM [facility] [employer]) NIL CONTROL 0.07 <8.01 IU/mL 05/24/2024 10:30 AM [facility] TB ANTIGEN 1 0.00 <0.35 IU/mL 05/24/2024 10:30 AM [facility] TB ANTIGEN 2 0.00 <0.35 IU/mL 05/24/2024 10:30 AM [facility] MITOGEN CONTROL 9.93 >0.49 IU/mL 05/24/19 10:30 AM [facility] INTEPRETATION TB NEGATIVE NEGATIVE, NEGATIVE (TB antigen response less than 25% of internal negative control value) 05/24/2024 10:30 AM [facility] Comment:No immune response t o Mycobacterium tuberculosis antigens was noted. M. tuberculosis infection unlikely. Blood Venipuncture / Unknown 05/21/2024 4:19 PM [facility] 05/21/2024 4:41 PM [facility] Narrative [facility] - 05/24/2024 10:30 AM [facility] A POSITIVE QUANTIFERON-TB GOLD PLUS RESULT SHOULD NOT BE THE SOLE OR DEFINITIVE BASIS FOR DETERMINING INFECTION WITH M.TUBERCULOSIS. Diagnosing or excluding tuberculosis disease, and assessing the probability of LTBI, requires a combination of epidemiological, historical, medical and diagnostic findings (e.g., acid fast bacilli (AFB) smear and culture, chest xray) that should be taken into account when interpreting QFT-Plus results. Furthermore, the magnitude of the measured gamma interferon level cannot be correlated to stage or degree of infection, level of immune responsiveness, or likelihood for progression to active disease. The Nil control adjusts for background (e.g., elevated levels of circulating gamma interferon or presence of heterophile antibodies). The Mitogen control serves as an internal positive control and verifies each specimen tested can produce a gamma interferon response. Low mitogen may occur with insufficient lymphocytes, reduced lymphocyte activity due to improper specimen handling, filling/mixing of the mitogen tube, or inability of the patient's lymphocytes to generate gamma interferon. Infection with other Mycobacteria, including M. kansasii, M. szulgai, and M. marinum, may cause false positive results. A negative QuantiFERON-TB Gold Plus result does not preclude the possibility of M. tuberculosis infection or tuberculosis disease: false negative results can be due to incorrect blood sample collection/ improper handling of the specimen, stage of infection (e.g., specimen obtained prior to the development of cellular immune response), co-morbid conditions which affect immune function, or other individual immunological factors. The minimum number of lymphocytes required for a reliable test has not been established and may also be variable. Diagnostic testing for Mycobacterium tuberculosis using Interferon Gamma Release Assays should follow applicable published guidelines, including when testing in populations such as children, women, and HIV-infected or otherwise immunocompromised individuals. https://www.cdc.gov/tb/publications/guidelines/testing.htm us Maria De Jesus Holder PAC IMMUNOLOGY ORDERABLES Fi nal Result [facility] [address] [place] [address], * (ABNORMAL) CBC WITH AUTO DIFFERENTIAL (05/21/2024 4:19 PM [facility]) WBC 10.93 4.00 - 12.00 10(3)/mcL 05/21/2024 4:44 PM [facility] RBC 5.09 3.80 - 5.30 10(6)/mcL 05/21/2024 4:44 PM [facility] HEMOGLOBIN (HGB) 15.7 12.0 - 15.8 g/dL 05/21/2024 4:44 PM [facility] HEMATOCRIT (HCT) 47.4(H) 36.0 - 47.0 % 05/21/2024 4:44 PM [facility] MCV 93.1 82.0 - 96.0 fL 05/21/2024 4:44 PM [facility] MCH 30.8 26.0 - 34.0 pg 05/21/2024 4:44 PM [facility] MCHC 33.1 31.0 - 36.0 g/dL 05/21/2024 4:44 PM [facility] PLATELET COUNT 271 140 - 440 10(3)/mcL 05/21/2024 4:44 PM [facility] RDW 13.4 11.8 - 15.5 % 05/21/2024 4:44 PM [facility] MPV 10.3 9.7 - 12.4 fL 05/21/2024 4:44 PM [facility] NEUTROPHILS 60.2 47.0 - 73.0 % 05/21/2024 4:44 PM [facility] LYMPHOCYTES 31.9 18.0 - 42.0 % 05/21/2024 4:44 PM [facility] MONOCYTES 5.8 4.0 - 12.0 % 05/21/2024 4:44 PM [facility] EOSINOPHILS 1.5 0.0 - 5.0 % 05/21/2024 4:44 PM [facility] BASOPHILS 0.6 0.0 - 1.0 % 05/21/2024 4:44 PM [facility] ABSOLUTE NEUTROPHILS 6.58 1.60 - 7.70 10(3)/[facility] 05/21/2024 4:44 PM [facility] ABSOLUTE LYMPHOCYTES 3.49(H) 1.30 - 3.20 10(3)/[facility] 05/21/2024 4:44 PM [facility] ABSOLUTE MONOCYTES 0.63 0.20 - 1.00 10(3)/[facility] 05/21/2024 4:44 PM [facility] ABSOLUTE EOSINOPHIL 0.16 0.00 - 0.40 10(3)/[facility] 05/21/2024 4:44 PM [facility] ABSOLUTE BASOPHILS 0.07 0.00 - 0.10 10(3)/[facility] 05/21/2024 4:44 PM [facility] NRBC PER 100 WBC 0 05/21/19 4:44 PM [facility] Blood Venipuncture / Unknown 05/21/2024 4:19 PM [facility] 05/21/2024 4:41 PM [facility] Maria De Jesus Holder PAC HEMATOLOGY ORDERABLES Fi nal Result Performing Organization Address City/[facility]/ZIP Co de Phone Number [facility] [address] [place] [address] * THYROID STIMULATING HORMONE (TSH) (05/21/2024 4:19 PM [facility]) TSH 0.877 0.300 - 5.000 mIU/L 05/21/2024 5:23 PM [facility] Blood Venipuncture / Unknown 05/21/2024 4:19 PM [facility] 05/21/2024 4:41 PM [employer] [employer] us Maria De Jesus Holder PAC CHEMISTRY ORDERABLES Fin al Result Performing Organization Address [facility] Co de Phone Number [facility] [address] [place] [address] * LIPOPROTEIN (A) (05/21/2024 4:19 PM [facility]) LIPOPROTEIN(a) 20 <31 mg/dL 05/21/2024 9:56 PM [facility] Blood Venipuncture / Unknown 05/21/2024 4:19 PM [facility] 05/21/2024 4:41 PM [employer] us Maria De Jesus Holder PAC CHEMISTRY ORDERABLES Fin al Result Performing Organization Address City/[facility]/ZIP Co de Phone Number [facility] [address] [place] [address], [place] * (ABNORMAL) LIPID PANEL (05/21/2024 4:19 PM [facility]) CHOLESTEROL 183 <200 mg/dL 05/21/2024 5:06 PM [facility] TRIGLYCERIDES 148 <150 mg/dL 05/21/2024 5:06 PM [facility] HDL CHOLESTEROL 37(L) >40 mg/dL 5:06 PM [facility] LDL 116 <130 mg/dL 05/21/2024 5:06 PM [facility] VLDL 30 10 - 50 mg/dL 05/21/2024 5:06 PM [facility] CHOL/HDL RATIO 4.9(H) 0.0 - 4.4 05/21/2024 5:06 PM [facility] NON-HDL CHOLESTEROL 146(H) <130 mg/dL 05/21/2024 5:06 PM [facility] IS THE PATIENT REQUIRED TO BE FASTING? No 05/21/2024 5:06 PM [facility] Blood Venipuncture / Unknown 05/21/2024 4:19 PM [facility] 05/21/2024 4:41 PM [facility] Kaylamable Holder PAC CHEMISTRY ORDERABLES Fin al Result Performing Organization Address [facility] Co de Phone Number [facility] [address] [place] [address] * HEPATITIS C ANTIBODY (05/21/2024 4:19 PM [facility]) hepatitis C antibody 0.21 <1 S/CO 05/21/2024 10:18 PM [facility] Comment: Signal/Cutoff ratio ??< 0.79 is Nondetected Signal/Cutoff ratio 0.80-0.99 is Grayzone Signal/Cutoff ratio > 0.99 is Detected Supplemental assays are recommended if signal/cutoff ratio is >/=1.00. ??Signal/cutoff ratio result >/= 5.00 is 97% predictive of positivity for recombinant immunoblot assay (RIBA) and will be reported to the [place] [facility] as required. Blood Venipuncture / Unknown 05/21/2024 4:19 PM [facility] 05/21/2024 4:41 PM [facility] [employer] PAC CHEMISTRY ORDERABLES Fin al Result Performing Organization Address City/[facility] Co de Phone Number [facility] [address] [place] [address], [place] * (ABNORMAL) CMP (COMPREHENSIVE METABOLIC PANEL) (05/21/2024 4:19 PM [facility]) SODIUM 139 136 - 145 mmol/L 05/21/2024 5:06 PM [facility] POTASSIUM 4.5 3.5 - 5.1 mmol/L 05/21/2024 5:06 PM [facility] CHLORIDE 105 98 - 107 mmol/L 05/21/2024 5:06 PM [facility] CO2, VENOUS 25 22 - 30 mmol/L 05/21/2024 5:06 PM [facility] ANION GAP 13.5 <18.0 mmol/L 05/21/2024 5:06 PM [facility] GLUCOSE 93 70 - 99 mg/dL 05/21/2024 5:06 PM [facility] BUN 7 5 - 18 mg/dL 05/21/2024 5:06 PM [facility] CREATININE, BLOOD 0.89 0.60 - 1.00 mg/dL 05/21/2024 5:06 PM [facility] BUN/CREATININE RATIO 8(L) 12 - 20 ratio 05/21/2024 5:06 PM [facility] TOTAL PROTEIN 7.6 6.3 - 8.2 g/dL 05/21/2024 5:06 PM [facility] ALBUMIN 4.4 3.5 - 5.0 g/dL 05/21/2024 5:06 PM [facility] A/G RATIO 1.4 1.0 - 2.2 05/21/2024 5:06 PM [facility] CALCIUM 9.4 8.7 - 10.5 mg/dL 05/21/2024 5:06 PM [facility] T BILI 0.2 0.2 - 1.2 mg/dL 05/21/2024 5:06 PM [facility] SGOT (AST) 14 5 - 34 U/L 05/21/2024 5:06 PM [facility] SGPT (ALT) 19 0 - 55 U/L 05/21/2024 5:06 PM [facility] ALKALINE PHOSPHATASE 72 40 - 150 U/L 05/21/2024 5:06 PM [facility] IS THE PATIENT REQUIRED TO BE FASTING? No 05/21/2024 5:06 PM [facility] GFR, ESTIMATED >60 >=60 05/21/2024 5:06 PM [facility] Comment: Creatinine Clearance is the preferred criteria for selecting drug dose adjustments in renally impaired patients. ??The GFR is provided as additional pertinent clinical information. GFR is reported in mL/min/1.73 sq m. Calculation based on the Chronic Kidney Disease Epidemiology Collaboration (CKD- EPI) equation refit without adjustment for race. GFR, EST. >60 >=60 025 5:06 PM [facility] GFR, EST. NONAFRICAN >60 >=60 05/21/2024 5:06 PM [facility] Blood Venipuncture / Unknown 05/21/2024 4:19 PM [facility] [employer] 05/21/2024 4:41 PM [employer] [employer] us Maria De Jesus Holder PAC CHEMISTRY ORDERABLES Fin al Result [facility] [address] [place] [address] from Last 3 Months Insurance [employer] Care Teams Spacer Type Bar And Segment Relationship Specialty Start Date End Date Maria De Jesus Holder PAC [address] [place] [address] PCP - General Physician Multicultural Internship 03/15/22 Shane Sena MD [address] [phone] Consulting Physician General Surgery 04/12/22
--- OUTSIDE RECORDS SUMMARY | 2024-06-04 21:00 | XMS_ITS | Referral Summary ---
Author Organization [facility] Address [address] [place] [address] Care Team Providers Care Circulation Supervisor Name Role Phone Karina Eduardo MD Primary Care Provider [phone] Source Comments [facility],non-owned Affiliates and Associated Physician Practices is [facility] organization consisting of ambulatory clinics and hospital sitesin [place], [place], [place] and [place]. This disclosure is being madepursuant to the Care Everywhere program and may not contain all information available regarding this patient. Last updated 18.[facility] Social History Tobacco Use Types Packs/Day Years Used Date Smoking Tobacco: Never Assessed Sex and Gender Information Value Date Recorded Sex Assigned at Not on file Gender Identity Not on file Sexual Orientation Not on file Plan of Treatment Not on file Care Teams Circulation Supervisor Relationship Specialty Start Date End Date Karina Eduardo MD [address] [place] [id number] PCP - General 02/09/10
--- OUTSIDE RECORDS SUMMARY | 2024-06-04 21:00 | XMS_ITS | Encounter Summary ---
Author Organization [facility] Address [address] [place] [address] Phone Care Team Providers Care Refinery Operator Visbreaking Name Role Phone Maria De Jesus Holder Primary Care Provider + Shane Sena MD Unavailable [phone] Reason for Visit * Reason Comments Medication Refill Encounter Details Date Type Department Care Team (Late st Contact Info) Description 06/25/2022 Refill [facility] [address] [place] [address] Maria De Jesus Holder PAC [address] [place] [address] Medication Refill Social History Tobacco Use Types Packs/Day Years Used Date Smoking Tobacco: Every Day Cigarettes 1 10 Smokeless Tobacco: Never Alcohol Use Standard Drinks/Week Comments Not Currently 0 (1 standard drink = 0.6 oz pur e alcohol) PHQ-2 Answer Date Recorded Total Score - Questions 1-9 3 03/14 Sexually Active Control Partners Comments Yes I.U.D. Male Comments Unknown Sex and Gender Information Value Date Recorded Sex Assigned at Not on file Legal Sex Female 1:14 PM CDT Gender Identity Not on file Sexual Orientation Not on file COVID-19 Exposure Response Date Recorded In the last 10 days, have yo u been in contact with someone who was confirmed or suspected to have Coronavirus/COVID-19? No / Unsure 06/13/2022 10:05 AM [employer]VISOR [employer] documented as of this encounter Miscellaneous Notes * Telephone Encounter - Sugar Wolfe RN - 06/25/2022 4:00 PM CST Medication failed the protocol, provider to review and approve the medication order if appropriate. Requested Prescriptions Pending Prescriptions Disp Refills FLUoxetine (PROZAC) 40 MG Capsule [Pharmacy Med Name: FLUOXETINE HCL 40 MG CAPSULE] 90 Capsule 1 Sig: TAKE 1 CAPSULE BY MOUTH EVERY DAY SSRI (6 Month Refill Only) Protocol Failed - 06/25/2022 3:09 PM Failed - Patient has established therapy with SSRI for at least 6 months Passed - No test in the past 12 months or most recent test was negative Passed - No active on record Passed - Visit with relevant provider in past 6 months or upcoming 90 days Recent Visits Date Type Provider Dept 05/16/22 Office Visit Maria De Jesus Holder PAC [facility] 04/04/22 Office Visit Maria De Jesus Holder PAC [facility] Showing recent visits within past 182 days and meeting all other requirements Future Appointments Date Type Provider Dept 07/11/22 Appointment Maria De Jesus Holder PAC [facility] Showing future appointments within next 90 days and meeting all other requirements Passed - Has an encounter in the past 6 months with a depression, anxiety, adjustment disorder, OCD, or PTSD visit diagnosis [employer] documented in this encounter Plan of Treatment Upcoming Encounters Date Type Department Care Team (Late st Contact Info) Description 11/18/2024 10:30 AM CDT Office Visit [facility] [place] [address] [place] [address] Maria De Jesus Holder PAC [address] [place] [address] documented as of this encounter Visit Diagnoses Not on filedocumented in this encounter Additional Health Concerns Assessment Noted Time PHQ-9 Depression Total Score: 3 04/04/20 3:00 PM [employer] documented as of this encounter Care Teams Refinery Operator Visbreaking Relationship Specialty Start Date End Date Maria De Jesus Holder PAC [address] [place] [address] PCP - General Physician Roller Staker 03/15/22 Shane Sena MD [address] [address] Consulting Physician General Surgery 04/12/22 documented as of this encounter
--- OUTSIDE RECORDS SUMMARY | 2024-06-04 21:00 | XMS_ITS | Clinical Summary ---
Author Organization [place] [id number] [facility] Address [address] [place] [address] Care Team Providers Care Return Checker Name Role Phone Melanie Olvera DO Unavailable [phone] Maria De Jesus Holder Primary Care Provider [phone] Allergies Active Allergy Reactions Criticality Noted Date [...] Overview (01/26/2022): CASSANDRA from Dr. Munguia in [place] Dated by LMP c/w 8 wk PNL: [...] 5,07/09/1994,04/12,02/15/1994 Tdap 01/11/2022,12/26/2006 Tetanus toxoid, adsorbed 12/29/2003 Surgical History Surgery Date Site/Laterality Comments TYMPANOSTOMY TUBE PLACEMENT 05/13/1995 - 05/12/1996 Ear infections: ear tubes CERVICAL BIOPSY W/ LOOP ELECTRODE EXCISION 05/13/2014 - 05/12/2015 CARLOS II-III on cervical biopsy: LEEP conization: UMBILICAL HERNIA REPAIR 05/29/2022 HAND SURGERY 04/13/2020 Right ORIF 5TH metacarpal Medical History Medical History Date Comments Hx Other Medical 2009 Menorrhagia, dy smenorrhea Hx Other Medical 1995 Ear infections Hx Other Medical 2012 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 Elective IOL with Pitocin.; Outcome: 39W1D week 7lb(s) 4 oz Male Hx Other Medical Asthma as a chi ld Hx Other Medical 2014 CARLOS II-III on c ervical biopsy Family History Medical History Relation Name Comments Hypertension Father Hypertension; Diabetes Maternal Grandmother Diabete s; Hypertension Maternal Grandmother Hyperte nsion; Hyperlipidemia Mother's Brother Hyperlipi demia; Colon cancer Other Cancer, colon; CLW 05/17/2014 - [facility] Stroke Other Stroke; CLW 09/2014 - [facility] Diabetes Paternal Grandmother Diabete s; Relation Name Status Comments Father Maternal Grandmother Mother's Brother Other Paternal Grandmother Social History Tobacco Use Types Packs/Day Years [...] on file Legal Sex Female 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 Gender Identity Not on file Sexual Orientation Not on file Occupation Industry Job Start Date Job End Date Unemployed Not on file Not on file Not on file Obstetrics History Para Term AB IAB SAB Ectopic Multiple Livin g Live Births 3 3 3 0 3 3 Date Outcome GA Total Labor Labor/2nd/3rd Weight Sex Type Anes PTL Oralia A1 A5 Name Clin 2014 Term 3.289 kg (7 lb 4 oz) M Vag-S pont Livin g 2017 Term 3.289 kg (7 lb 4 oz) F Vag-S pont Livin g 2021 Term 39w 0d 1h 43m 1h 16m/0h 19m/0h 08m 3.311 kg (7 lb 4.8 oz) M Vag-S pont Epidur al N Livin g 8 9 JENNIFER ERICKSON Megan Elizab eth, DO Complications:None,Precipito us Labor (<3 hours) Delivery Location:This [facility] Last Filed Vital Signs Vital Sign Reading [...] 12/18/2023 8:10 AM CDT Plan of Treatment Health Maintenance Due Date Last Done Comments Depression Screening 1993 Pneumococcal vaccine <65 (1 of 2 - PCV) 12/08/1999 Varicella Vaccines (1 of 2 - 13+ 2-dose series) 2006 Regular Well Visit/Exam 18-64 12/08/2011 Cervical Cancer Screening 03/22/2023 03/22/2022, Influenza Vaccine (#1) 2024 3, 02/23/2013, 03/06/2010, Additional history exists DTaP/Tdap/Td Vaccine (9 - Td or Tdap) 01/12/2032 01/11/2022, 12/21/2014, 12/26/2006, Additional history exists HPV Vaccines Completed 08/29/2007, 02/10, 12/26/2006 Hepatitis C Screening Completed 05/12/2014 Procedures Procedure Name Priority Date/Time Associated Diagnosis Comments PAP WITH REFLEX TO HIGH RISK HPV Routine 03/22/2022 11:29 AM RESEARCH LABORATORY MANAGER Screening for malignant neoplasm of cervix SERUM HEPATITIS C AB Routine 05/12/2014 11:32 AM RESEARCH LABORATORY MANAGER from Last 3 Months or Most Recently Relevant to Health Maintenance Results * Pap with reflex to High Risk HPV (03/22/2022 11:29 AM RESEARCH LABORATORY MANAGER) Thin prep (Pap test) 03/22/2022 11:29 AM RESEARCH LABORATORY MANAGER 03/22/2022 11:29 AM RESEARCH LABORATORY MANAGER Narrative PATHOLOGY CH - 03/26/2022 1:38 PM RESEARCH LABORATORY MANAGER [facility] Department of Pathology [address] [place] [id number] Final Report Note to Patients: This report [...] questions and explain the details. Patient Name: ??BIRGIT ERICKSON Address: ??[address], ?? [place], [place] ??[address]- Gender: ??F : ??1995 (Age: 26) Service: ??Laboratory Location: ?? Hospital #: ??[id number] Patient Type: ?? SPECIMEN Taken: ??03/22/2022 Received: ??03/22/2022 Accessioned:: ??03/23/2022 Reported: ??03/26/2022 Physician(s): Kalpesh Zuleta D.O. Diagnosis: Source of Specimen: ? Imaged Thinprep Pap Test w/ Reflex HPV - Lab Tech Cytologic Material Specimen Adequacy: ?- Satisfactory for evaluation; endocervical/transformation zone component present General Category: ?- Negative for intraepithelial lesion or malignancy HUMBERTO Rayo(ASCP) Report Electronically Reviewed and Signed Out By ??HUMBERTO Rayo(ASCP) ??03/26/2022 13:38:59Specimen(s) Received: A: Imaged Thinprep Pap Test w/ Reflex HPV - Lab Tech Cytologic Material Clinical History: Menstrual History: Post-menopausal [...] determined by the Surgical Pathology Department at [facility] as part of an ongoing quality assurance analyst program and in compliance with federally mandated [...] characteristics determined by the Surgical Pathology Department [facility]. ??It has not been cleared or approved by the U. S. Food and Drug Administration. Melanie Olvera DO LAB CYTOLOGY ORDERABLES Final Result PATHOLOGY [address] [place] [address] * Serum Hepatitis C ab (05/12/2014 11:32 AM RESEARCH LABORATORY MANAGER) HCV ab Negative Negative HISTORICAL RESULTS Serum 05/12/2014 11:3 2 AM RESEARCH LABORATORY MANAGER Lurdes Wang MD LAB BLOOD ORDERABLE S Final Result HISTORICAL RESULTS from Last 3 Months or Most Recently Relevant to Health Maintenance Insurance IDPA ISMAEL BROKOS Member Subscriber Plan / Payer (Ef fective 2023-Present) Name:Birgit Erickson Relation to Subscriber:Self Name:Birgit Erickson Payer ID:[id number] (NAIC) Group ID:[id number] Type:CIGNA HMO/PPO Address: [place] [address] ISMAEL BROOKS Member Subscriber Plan / Payer (Ef fective 2023-Present) Name:Birgit Erickson Relation to Subscriber:Self Name:Birgit Erickson Payer ID:[id number] (NAIC) Group ID:[id number] Type:CIGNA HMO/PPO Address: [place] [address] Advance Directives For more information, please contact: [phone] * Full Code (Latest Code Status on File) Date Activated Date Inactivated Comments 02/07/2022 12:43 PM 02/08/2022 4:59 PM * Full Code Date Activated Date Inactivated Comments 02/07/2022 3:26 AM 02/07/2022 12:43 PM Full CPR in case of cardiopulmonary arrest Care Teams Return Checker Relationship Specialty Start Date End Date Maria De Jesus Holder PA [address] [address] PCP - General Ferry Operator 07/08/23 Melanie Olvera DO [address] [place] [address] Consulting Physician Obstetrics and Gynecology 02/08/22
== END 2024-06-03 13:55 | disposition home or self-care (01) ==
PROVIDERS: PCP Physician Assistant; Visit Provider Obstetrics & Gynecology
PROC: 0U5B8ZZ Destruction of Endometrium, Via Natural or Artificial Opening Endoscopic (ICD-10-PCS; CPT 58563; principal; 2024-06-03 12:00)
DX: N92.0 Excessive and frequent menstruation with regular cycle (principal); G89.18 Other acute postprocedural pain; J45.909 Unspecified asthma, uncomplicated; F32.A Depression, unspecified; F41.9 Anxiety disorder, unspecified; F17.210 Nicotine dependence, cigarettes, uncomplicated; E66.9 Obesity, unspecified; Z68.36 Body mass index [BMI] 36.0-36.9, adult; Z98.890 Other specified postprocedural states
CPT/HCPCS: 58563; 88305; A9270; J2003; J2250; J2405; J2704; J3010; J7120

== ENCOUNTER 2024-10-26 11:25 | Observation (INO) | payer OTHER, SELFPAY ==
--- NOTE | ~2024-10-26 | US_ITS ---
US breast LT complete 10/26/2024 13:02 Indication: Left breast cellulitis. Evaluate for abscess. Procedure: High-resolution complete left breast ultrasound Comparison: No prior studies for comparison. Findings: There are scattered areas of fluid throughout the left breast, most prevalent in the lower inner quadrant. No discrete walled off fluid collection identified for measurement purposes. There is moderate increased vascularity within and surrounding the fluid in the left breast at 9:00. Impression: 1: Scattered areas of fluid throughout the left breast with increased vascularity at some locations. Considerations include infection although other etiologies such as inflammatory breast carcinoma are not excluded. Recommendation: Recommend correlation with diagnostic bilateral mammogram. BI-RADS CATEGORY 0 - INCOMPLETE STUDY, NEED ADDITIONAL IMAGING EVALUATION. Reviewed, dictated and finalized at location A. Impression: 1: Scattered areas of fluid throughout the left breast with increased vasculari ty at some locations. Considerations include infection although other etiologie s such as inflammatory breast carcinoma are not excluded. Recommendation: Recommend correlation with diagnostic bilateral mammogram. BI-RADS CATEGORY 0 - INCOMPLETE STUDY, NEED ADDITIONAL IMAGING EVALUATION.
--- NOTE | ~2024-10-26 | MR_ITS ---
MR breast BI wo/w con 10/27/2024 12:35 CDT INDICATION: Left breast cellulitis. Evaluate for abscess. TECHNIQUE: MRI of the breasts perform using standard protocol pre-and post IV contrast with the follo wing sequences: Axial T2 STIR, axial T1, axial vibrant T1 with fat suppression precontrast and multip hasic postcontrast. 18 cc MultiHance administered intravenously. COMPARISON: Ultrasound dated 10/26/2024 FINDINGS: Breast density: Heterogeneous fibroglandular tissue. Right breast: There are no abnormalities on the precontrast sequences. There is minimal background pa renchymal enhancement. No enhancing lesions following contrast administration. No areas of enhancem ent meeting threshold criteria on CAD analysis. No evidence of signal abnormalities in the axillary or internal mammary node distributions. LEFT BREAST: There is diffuse interstitial fluid with increased vascularity of the left breast and sk in thickening There is moderate background parenchymal enhancement. There is a large area complex mul tiloculated fluid with enhancing margins and septations and significant surrounding hypervascularity. This conglomeration of abnormal soft tissue measures approximately 5 x 5.2 x 3.5 cm. There are multi ple abnormal appearing enlarged lymph nodes with loss of fatty hilum centered in the upper outer quad rant and axillary aspects of the left breast. Largest of these measures 1.6 x 0.9 x 0.9 cm with rapid washout kinetics IMPRESSION: 1: Right breast: Negative. No evidence of malignancy. BI-RADS category 1. Recommend annual mammo graphy follow-up. 2: Left breast: Complex multiloculated fluid with surrounding diffuse interstitial thickening/fluid throughout the left breast. The fluid measures approximately 5.2 x 5 x 3.5 cm in conglomeration with peripheral enhancement. Multiple abnormal enlarged lymph nodes are present which have a pathologic ap pearance. There is associated increased vascularity with skin thickening. Although this is most likel y infectious/inflammatory process with abscess formation, inflammatory breast carcinoma could have a similar appearance with areas of necrosis and hypervascularity. Recommend further evaluation with asp iration of fluid for infectious/inflammatory etiologies followed by core biopsy of the associated nida rounding tissue to exclude underlying malignancy. BI-RADS Category 4. Reviewed, dictated and finalized at location A. IMPRESSION: 1: Right breast: Negative. No evidence of malignancy. BI-RADS category 1. Recommend annual mammography follow-up. 2: Left breast: Complex multiloculated fluid with surrounding diffuse intersti tial thickening/fluid throughout the left breast. The fluid measures approximat beny 5.2 x 5 x 3.5 cm in conglomeration with peripheral enhancement. Multiple ab normal enlarged lymph nodes are present which have a pathologic appearance. The re is associated increased vascularity with skin thickening. Although this is m ost likely infectious/inflammatory process with abscess formation, inflammatory breast carcinoma could have a similar appearance with areas of necrosis and hy pervascularity. Recommend further evaluation with aspiration of fluid for infec tious/inflammatory etiologies followed by core biopsy of the associated surroun ding tissue to exclude underlying malignancy. BI-RADS Category 4.
[2024-10-26 11:32] VITALS: BP 125/91; PULSE 87; RESP 18; TEMP 36.5; O2SAT 100
[2024-10-26 11:50] VITALS: BP 129/92; PULSE 92; TEMP 36.6; O2SAT 100
--- NOTE | 2024-10-26 12:12 | ED_ITS ---
HPI - Skin/Abscess/Foreign Bdy General Chief complaint: Skin/Abscess/Foreign Body <STEFANIE Hendrickson Last Filed: 10/26/24 18:54> Stated complaint: abscess to left breast <STEFANIE Hendrickson Last Filed: 10/26/24 18:54> Time Seen by Provider: 10/26/24 11:34 <STEFANIE Hendrickson Last Filed: 10/26/24 18:54> Source: patient <STEFANIE Hendrickson Last Filed: 10/26/24 18:54> Mode of arrival: ambulatory <STEFANIE Hendrickson Last Filed: 10/26/24 18:54> Limitations: no limitations <STEFANIE Hendrickson Last Filed: 10/26/24 18:54> History of Present Illness HPI narrative: Patient is a 28 y/o female who presents to the ED with c/o L breast pain/redness. Patient reports she first noticed a lump to her L breast last Saturday, underneath her L nipple. Saw OBGYN, Dr Duncan, on Saturday and started on Keflex, scheduled for scheduled OP US and mammogram for this . Has been taking antibiotics as prescribed, however reports since last week, redness/warmth/pain/swelling has continued to worsen. She also reports fevers, up to 101.8? F. Has been taking Tylenol and ibuprofen for pain. Denies history of similar symptoms. Denies nipple discharge or inversion. <STEFANIE Hendrickson Last Filed: 10/26/24 18:54> Related Data Home medications: Home Medications ?Medication ?Instructions ?Recorded ?Confirmed ?Last Taken ?Type fluoxetine 20 mg capsule 20 mg PO DAILY 02/28/22 10/26/24 06/02/24 History sennosides 8.6 mg tablet (senna) 8.6 mg PO HS 02/28/22 10/26/24 06/02/24 History <STEFANIE Hendrickson Last Filed: 10/26/24 18:54> Allergies/Adverse reactions: Allergies Allergy/AdvReac Type Severity Reaction Status Date / Time nickel Allergy Mild Rash Verified 06/03/24 10:55 <Suzanne Cortez PA-C - Last Filed: 10/26/24 18:54> Review of Systems 2 Review of Systems: All systems reviewed & are unremarkable except as noted in HPI. <STEFANIE Hendrickson Last Filed: 10/26/24 18:54> All systems reviewed & are unremarkable except as noted in HPI and below < Suzanne Cortez PA-C - Last Filed: 10/26/24 18:54> [facility] Past Medical History Medical History: Medical History Depression Anxiety Asthma Migraine <STEFANIE Hendrickson Last Filed: 10/26/24 18:54> Surgical History Surgical History: Surgical History Hx of hand surgery 04/2020 No significant past surgical history <Suzanne Cortez PA-C - Last Filed: 10/26/24 18:54> Family History Family History: Family History (Updated 10/26/24 @ 17:48 by Kailey Traylor RN) Father Diabetes mellitus Hypercholesteremia Grandparent Hypertension Asthma COPD (chronic obstructive pulmonary disease) Mother Hypertension Hypercholesteremia <STEFANIE Hendrickson Last Filed: 10/26/24 18:54> Social History Social History: Social History Smoking packs per day: 0.5 Smoking cigarettes per day: 10.0 Years smoked: 10 Smoking pack-years: 5.00 Smoking status: Current every day smoker Tobacco type: cigarettes Additional smoking assessment comments: 1/2ppd cigarettes x 10 years Alcohol intake: never Alcohol use details: Rarely Substance use: never Do You Feel Safe in your Home?: Yes Lack of Transportation: No Lack of Food: Never True Current Housing: I Have Housing Concerned About Future Housing: No Difficulty Paying Gas/Electric Bills: No Difficulty Paying for Meds: No Currently Unemployed: No Education: Don't Know Difficulty w/ Childcare or Family Care: No Living arrangements: with family Gender identity (if verbalized by the patient): Female Spiritual care concerns: No <Suzanne Cortez PA-C - Last Filed: 10/26/24 18:54> Exam 2 Narrative: GENERAL: Well appearing, obese with BMI of 32.7, non-toxic, in no acute distress. HEAD: Normocephalic, atraumatic. BREAST: R breast normal. L breast with large amount of induration in subareolar region into medial breast. Erythema, warmth present. Slight peau d' orange changes to medial breast. Focal TTP. No nipple inversion but areolar region is slightly edematous. No nipple drainage. RESPIRATORY: Airway patent, respirations nonlabored. Clear to auscultation bilaterally, no rales, rhonchi, wheezing. CARDIOVASCULAR: Regular rate and rhythm without murmurs, rubs, or gallops. MUSCULOSKELETAL: Moves all extremities. No gross deformities. SKIN: Warm, dry, normal color. NEURO: A&O X3. Speech clear. PSYCHIATRIC: Appropriate mood and affect. Normal interaction. <Suzanne Cortez PA-C - Last Filed: 10/26/24 18:54> Course HAND I CUTTER/PA Physician Supervision For this patient encounter, I reviewed the HAND I CUTTER or PA documentation, treatment plan, and medical decision making; and I had [id number]-[id number] time with this patient. <Robert Wilkerson MD - Last Filed: 10/26/24 19:00> Vital Signs Vital signs: Vital Signs Temperature 97.7 F 10/26/24 11:32 Pulse Rate 87 10/26/24 11:32 Respiratory Rate 18 10/26/24 11:32 Blood Pressure 125/91 H 10/26/24 11:32 Pulse Oximetry 100 10/26/24 11:32 Oxygen Delivery Room Air 10/26/24 11:32 Temperature 97.8 F 10/26/24 11:50 Pulse Rate 92 10/26/24 11:50 Respiratory Rate 18 10/26/24 11:32 Blood Pressure 129/92 H 10/26/24 11:50 Pulse Oximetry 100 10/26/24 11:50 Oxygen Delivery Room Air 10/26/24 11:32 <Suzanne Cortez PA-C - Last Filed: 10/26/24 18:54> Vital Signs Temperature 97.7 F 10/26/24 11:32 Pulse Rate 87 10/26/24 11:32 Respiratory Rate 18 10/26/24 11:32 Blood Pressure 125/91 H 10/26/24 11:32 Pulse Oximetry 100 10/26/24 11:32 Oxygen Delivery Room Air 10/26/24 11:32 Temperature 97.8 F 10/26/24 11:50 Pulse Rate 92 10/26/24 11:50 Respiratory Rate 18 10/26/24 11:32 Blood Pressure 129/92 H 10/26/24 11:50 Pulse Oximetry 100 10/26/24 11:50 Oxygen Delivery Room Air 10/26/24 11:32 <Robert Wilkerson MD - Last Filed: 10/26/24 19:00> MDM - Skin/Abscess/Foreign Bdy MDM Narrative Medical decision making narrative: Patient presented to ED with infection to left breast. Started on Keflex last week by OBGYN, but symptoms worsening. Reporting low-grade fevers. Vital signs are stable upon arrival here. She is afebrile currently. Cbc with white blood cell count of 11.9. CMP fairly unremarkable. Inflammatory markers are elevated. Lactic acid within normal range. Ultrasound of left breast showing: Impression: 1: Scattered areas of fluid throughout the left breast with increased vascularity at some locations. Considerations include infection although other etiologies such as inflammatory breast carcinoma are not excluded. Discussed lab and imaging findings with patient. Given she has already been on Keflex for the last week without improvement, feel patient will need IV antibiotics for further management. Started on vancomycin in the ED. Blood cultures obtained. She is in agreement with plan. Discussed case with Tamanna Levy NP hospitalist, accepted patient for admission. <ADA Hendrickson - Last Filed: 10/26/24 18:54> Medical Records Attestation: I reviewed the patient's medical records. <Suzanne Cortez PA-C - Last Filed: 10/26/24 18:54> Lab Data Attestation: I reviewed the patient's lab results. <Suzanne Cortez PA-C - Last Filed: 10/26/24 18:54> Result diagrams: 10/26/24 12:53 10/26/24 12:53 <Suzanne Cortez PA-C - Last Filed: 10/26/24 18:54> Labs: Lab Results 10/26/24 Range/Units 12:53 WBC 11.9 H (4.5-10.0) K/mm3 RBC 4.44 (4.2-5.4) M/mm3 Hgb 13.5 (12.0-15.0) g/dL Hct 41.2 (37.0-47.0) % MCV 92.8 (80-100) fl MCH 30.4 (26-34) pg MCHC 32.8 (32-36) g/dl RDW 13.6 (11.5-14.5) % Plt Count 230 (150-375) k/mm3 MPV 9.4 (7.4-10.4) fl Immature Gran % (Auto) 0.5 (0-0.5) % Neut % (Auto) 71.4 (45.5-73.1) % Lymph % (Auto) 18.3 (18.3-44.2) % Mayes % (Auto) 9.0 H (2.6-8.5) % Eos % (Auto) 0.3 (0-4.4) % Baso % (Auto) 0.5 (0.2-1.2) % Lymph # (Auto) 2.19 (0.9-3.2) K/mm3 Mayes # (Auto) 1.1 H (0.1-0.6) K/mm3 Eos # (Auto) 0.0 (0-0.3) K/mm3 Baso # (Auto) 0.1 (0.0-0.1) K/mm3 Abs Immat Gran (auto) 0.06 H (0.00-0.031) K/mm3 Absolute Neuts (auto) 8.5 H (1.3-6.7) K/mm3 Absolute Nucleated RBC 0.000 (0.0-0.012) K/mm3 Nucleated RBC % 0.0 (0.0-0.2) % ESR 22 H (0-20) mm/hr Sodium 136 L (137-145) mmol/L Potassium 4.3 (3.4-5.0) mmol/L Chloride 108 H (98-107) mmol/L Carbon Dioxide 24 (22-30) mmol/L Anion Gap 4 (4-12) mmol/L BUN 7 (7-17) mg/dL Creatinine 0.70 (0.7-1.0) mg/dL Estim Creat Clear Calc 116 ml/min Estimated GFR > 60 (59 - ) Glucose 89 (65-110) mg/dL Lactic Acid < 0.5 L (0.7-2.0) mmol/L Calcium 8.8 (8.4-10.2) mg/dL Total Bilirubin 0.4 (0.2-1.3) mg/dL AST 18 (14-36) U/L ALT 13 (6-35) U/L Alkaline Phosphatase 69 (38-126) U/L C-Reactive Protein 7.9 H (<1.0) mg/dL Total Protein 6.9 (6.3-8.2) g/dL Albumin 3.7 (3.5-5.1) g/dL <Suzanne Cortez PA-C - Last Filed: 10/26/24 18:54> Lab Results 10/26/24 Range/Units 12:53 WBC 11.9 H (4.5-10.0) K/mm3 RBC 4.44 (4.2-5.4) M/mm3 Hgb 13.5 (12.0-15.0) g/dL Hct 41.2 (37.0-47.0) % MCV 92.8 (80-100) fl MCH 30.4 (26-34) pg MCHC 32.8 (32-36) g/dl RDW 13.6 (11.5-14.5) % Plt Count 230 (150-375) k/mm3 MPV 9.4 (7.4-10.4) fl Immature Gran % (Auto) 0.5 (0-0.5) % Neut % (Auto) 71.4 (45.5-73.1) % Lymph % (Auto) 18.3 (18.3-44.2) % Mayes % (Auto) 9.0 H (2.6-8.5) % Eos % (Auto) 0.3 (0-4.4) % Baso % (Auto) 0.5 (0.2-1.2) % Lymph # (Auto) 2.19 (0.9-3.2) K/mm3 Mayes # (Auto) 1.1 H (0.1-0.6) K/mm3 Eos # (Auto) 0.0 (0-0.3) K/mm3 Baso # (Auto) 0.1 (0.0-0.1) K/mm3 Abs Immat Gran (auto) 0.06 H (0.00-0.031) K/mm3 Absolute Neuts (auto) 8.5 H (1.3-6.7) K/mm3 Absolute Nucleated RBC 0.000 (0.0-0.012) K/mm3 Nucleated RBC % 0.0 (0.0-0.2) % ESR 22 H (0-20) mm/hr Sodium 136 L (137-145) mmol/L Potassium 4.3 (3.4-5.0) mmol/L Chloride 108 H (98-107) mmol/L Carbon Dioxide 24 (22-30) mmol/L Anion Gap 4 (4-12) mmol/L BUN 7 (7-17) mg/dL Creatinine 0.70 (0.7-1.0) mg/dL Estim Creat Clear Calc 116 ml/min Estimated GFR > 60 (59 - ) Glucose 89 (65-110) mg/dL Lactic Acid < 0.5 L (0.7-2.0) mmol/L Calcium 8.8 (8.4-10.2) mg/dL Total Bilirubin 0.4 (0.2-1.3) mg/dL AST 18 (14-36) U/L ALT 13 (6-35) U/L Alkaline Phosphatase 69 (38-126) U/L C-Reactive Protein 7.9 H (<1.0) mg/dL Total Protein 6.9 (6.3-8.2) g/dL Albumin 3.7 (3.5-5.1) g/dL <Robert Wilkerson MD - Last Filed: 10/26/24 19:00> Imaging Data Attestation: I personally reviewed and interpreted this imaging study as follows: < Suzanne Cortez PA-C - Last Filed: 10/26/24 18:54> Radiologist's impression: ITS Impressions Breast Ultrasound 10/26/24 13:27 Impression: 1: Scattered areas of fluid throughout the left breast with increased vascularity at some locations. Considerations include infection although other etiologies such as inflammatory breast carcinoma are not excluded. Recommendation: Recommend correlation with diagnostic bilateral mammogram. BI-RADS CATEGORY 0 - INCOMPLETE STUDY, NEED ADDITIONAL IMAGING EVALUATION. <Suzanne Cortez PA-C - Last Filed: 10/26/24 18:54> Discharge Plan Discharge Clinical Impression: Cellulitis of left breast <Suzanne Cortez PA-C - Last Filed: 10/26/24 18:54> Patient Disposition: Still a Patient <Suzanne Cortez PA-C - Last Filed: 10/26/24 18:54> Condition: Stable <STEFANIE Hendrickson Last Filed: 10/26/24 18:54>
--- OUTSIDE RECORDS SUMMARY | 2024-10-26 12:44 | XMS_ITS | Encounter Summary ---
Author Organization [facility] Address [address] [place] [address] Phone Care Team Providers Care Slitter Operator Name Role Phone Shailesh Munguia MD Primary Care Provider [phone] Melanie Olvera DO Unavailable [phone] Maria De Jesus Holder Primary Care Provider [phone] Encounter Details Date Type Department Care Team (Late st Contact Info) Description 06/12/2021 Orders Only [facility] [address] [place] [address] Scanning, Provider Social History Tobacco Use Types Packs/Day Years Used Date Smoking Tobacco: Heavy Smoker Comments:Smoking History Pac ks/day: 0.5 Packs Alcohol Use Standard Drinks/Week Comments No 0 (1 standard drink = 0.6 oz pur e alcohol) Comments Unknown Sex and Gender Information Value Date Recorded Sex Assigned at Not on file Legal Sex Female 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
--- OUTSIDE RECORDS SUMMARY | 2024-10-26 12:44 | XMS_ITS | Encounter Summary ---
Author Organization [facility] Address [address] [place] [address] Phone Care Team Providers Care Automation Analyst Name Role Phone Maria De Jesus Holder Primary Care Provider + Shane Sena MD Unavailable [phone] Encounter Details Date Type Department Care Team (Late st Contact Info) Description 10/06/2024 Results Follow-Up [facility] - Family Medicine - [place] [address] [place] [address] Maria De Jesus Holder PAC [address] [place] [address] QUANTIFERON-TB GOLD PLUS Social History Tobacco Use Types Packs/Day Years Used Date Smoking Tobacco: Every Day Cigarettes 1 10 Smokeless Tobacco: Never Alcohol Use Standard Drinks/Week Comments Not Currently 0 (1 standard drink = 0.6 oz pur e alcohol) [facility] Utilities Answer Date Recorded In the past 12 months has [employer], gas, oil, or water company threatened to shut off services in your home? No 05/19/2024 Social Connection and Isolation Panel Answer Date Recorded In a typical week, how many times do you talk on the phone with family, friends, or neighbors? Once a week 05/19/19 How often do you get togethe r with friends or relatives? Once a week 05/19/2024 How often do you attend chur ch or yazdanism services? 1 to 4 times per year [...] Total Score - Questions 1-9 5 01/2025 [facility] - Occupational Stress Questionnaire Answer Date Recorded [...] any time in the past 12 m [facility], were you homeless or living in a correction (including now)? No 05/19/2024 Education Answer Date [...] Office Visit [facility] - Family [facility] [address] [place] [address] Maria De Jesus Holder PAC [address] [place] [address] documented as of this encounter Visit Diagnoses Not on filedocumented in this encounter Additional Health Concerns Assessment Noted Time PHQ-9 Depression Total Score: 5 05/21/19 25 3:26 PM SAWYER HELPER documented as of this encounter Care Teams Automation Analyst Relationship Specialty Start Date End Date Maria De Jesus Holder PAC [address] [place] [address] PCP - General Physician Bottom Sander 03/15/22 Shane Sena MD [address] [address] Consulting Physician General Surgery 04/12/22 documented as of this encounter
--- OUTSIDE RECORDS SUMMARY | 2024-10-26 12:44 | XMS_ITS | Clinical Summary ---
Author Organization [facility] Address [address] [place] [address] Phone Care Team Providers Care Receiving Checker Name Role Phone Maria De Jesus Holder [...] hours if headache recurs. 9 Tablet 3 3 Active LORazepam (ATIVAN) 0.5 MG TabletIndicatio ns:Anxiety Take 1 Tablet by mouth every 8 hours as needed for Anxiety. 15 Tablet 4 Active tranexamic Acid (LYSTEDA) 650 MG Tablet TAKE 2 TABLETS BY MOUTH 3 TIMES A DAY DAYS 1-4 OF CYCLE 4 Active FLUoxetine (PROzac) 20 MG Capsule Take 1 Capsule by mouth daily. 90 Capsule 3 5 Active Naltrexone-buPR OPion HCl ER (Contrave) 8-90 MG TABLET SR 12 HRIndications:B AZ 36.0-36.9,adult Start 1 tab by mouth in the am for 1 week, then 1 tab twice daily for 1 week, then 2 tabs in the am and 1 tab in the pm for 1 week, then 2 tabs twice daily 70 Tablet 5 Active Active Problems Problem Noted Date Diagnosed Date Anxiety and depression 05/16/2022 Frequent headaches 05/16/2022 BMI 34.0-34.9,adult 05/16/2022 Encounters Date Type Department Care Team Description 10/06/2024 Results Follow-Up [facility] [address] [place] [address] Maria De Jesus Holder, PAC QUANTIFERON-TB GOLD PLUS 10/02/2024 Travel from Last 3 Months Immunizations Immunization Administration Dates Next Due DTAP VACCINE 01/25/1998 DTAP/HIB COMBINED VACCINE 03/25/1995,,04/12/1994,02/15 DTP-Hib 04/12/1994,02/15/1994 Hepatitis B Vaccine, Pediatric/adolescent 07/09/1994,01/11/1994,1993 Human Papillomavirus Vaccine (HPV), quadrivalent 08/29/2007,02/25/2007,12/26/2006 Influenza Vaccine, Quadrivalent, PF 07/04/2022 Influenza, Seasonal, Injecta ble, Undefined 02/23/2013,03/06/2010,02/18/2009,03/23 MMR Vaccine 01/25/1998,12/10/1994 Meningococcal Polysaccharide Vaccine (MPSV4) 01/30/2006 OPV 01/25/1998, 5,07/09/1994,04/12,02/15/1994 Pneumococcal conjugate PCV20 , polysaccharide [id number] conjugate, adjuvant, PF 07/04/2022 TDAP Vaccine 01/11/2022,12/21/2014,12/26/2006 [...] drink = 0.6 oz pur e alcohol) [facility] Utilities Answer Date Recorded In the past 12 months has th e electric, gas, oil, or water company threatened [...] any clubs o r organizations such as catholic groups, unions, fraternal or athletic groups, or [...] Total Score - Questions 1-9 5 01/2025 [facility] - Occupational Stress [...] any time in the past 12 m [facility], were you homeless or living in a detention (including now)? No 05/19/2024 Education Answer Date [...] Comments Blood Pressure 102/72 05/21/2024 3:17 PM EYEDOTTER Pulse 94 05/21/2024 3:17 PM EYEDOTTER Temperature 37.1 C (98.8 F) 05/21/2024 3:17 PM EYEDOTTER Respiratory Rate 16 07/11/2022 10:29 AM EYEDOTTER Oxygen Saturation 98% 05/21/2024 3:17 PM EYEDOTTER Inhaled Oxygen Concentration - - Weight 102.5 kg (226 lb) 05/21/2024 3:17 PM EYEDOTTER Height 167.6 cm (5' 6) 05/21/2024 3:17 PM EYEDOTTER Body Mass Index 36.48 05/21/2024 3:17 PM EYEDOTTER Plan of Treatment Upcoming Encounters Date Type Department Care Team (Late st Contact Info) Description 11/18/2024 10:30 AM CDT Office Visit [facility] [address] [place] [address] Maira De Jesus Holder, PAC [address] [place] [address] Health Maintenance Due Date Last Done Comments HPV/Cotest 12/08/2023 SARS-COV-2 Immunization ( season) 2024 Influenza Immunization (Season Ended) 2025 07/04/2022, 02/23/2013, 03/06/2010, Additional history exists Cervical Cancer Screening (CCS) 03/22/2025 Pap Smear 03/22/2025 03/22/2022 DTaP/Tdap/Td Immunization (9 - Td or Tdap) 01/12/2032 01/11/2022, 12/21/2014, 12/26/2006, Additional history exists Respiratory Syncytial Virus (RSV) Immunization (Adult) (1 - 1-dose 75+ series) 2068 Hepatitis B Immunization Completed 995, 01/11/1994, 1993 Meningococcal Immunization (ACWY) Aged Out 01/30/2006 No longer eligible based on patient's age to complete this topic Human Papillomavirus (HPV) Immunization Completed 08/29/2007, 02/25/2007, 12/26/2006 Pneumococcal Immunization Combined Completed 07/04/2022 Hepatitis C Virus (HCV) Screening Completed 05/21/2024 Rotavirus Immunization Aged Out No lo nger eligible based on patient's age to complete this topic Medical Devices Implanted Type Area Superintendent Horticulture Device Identifier Shelf Expiration Date Model / Serial / Lot Mesh Srg Ventralight St Sepra Echo Ps 6in Mfl Ltwt Abs Loprfl Strl Seprafilm Polyp Hydrogel [place] - [id number] Implanted:Qty: 1 on 05/29/2022 by JaidaShane melo [facility] IMPLANT N/A: Umbilical [employer] 11/08/2023 [id number] / [id number] / [id number] Description:Ventralight ST Low profile bioresorbable coated permanent mesh for soft tissue reconstruction [place] mesh Bard Partially absorbable Staple Tacker Optifix At - [id number] Implanted:Qty: 2 on 05/29/2022 by Shane Sena MD at [facility] IMPLANT N/A: Umbilical [employer] 07/10/2023 [id number] / [id number] / [id number] Description:Optifix AT Absorbable fixation system with articulating technology 37cm x 5mm Cannula 30 absorbable fasteners [employer] Procedures Procedure Name Priority Date/Time Associated Diagnosis Comments QUANTIFERON-TB GOLD PLUS Routine 10/02/2024 10:22 AM CDT Screening-pulmonary TB HEPATITIS C ANTIBODY Routine 05/21/2024 4:19 PM EYEDOTTER Encounter for hepatitis C screening test for low risk patient from Last 3 Months or Most Recently Relevant to Health Maintenance Results * QUANTIFERON-TB GOLD PLUS (10/02/2024 10:22 AM CDT) NIL CONTROL 0.01 <8.01 IU/mL 10/04/2024 8:29 AM CDT [facility] TB ANTIGEN 1 0.00 <0.35 IU/mL 10/04/2024 8:29 AM CDT [facility] TB ANTIGEN 2 0.00 <0.35 IU/mL 10/04/2024 8:29 AM CDT [facility] MITOGEN CONTROL 9.99 >0.49 IU/mL 10/05/19 8:29 AM CDT [facility] INTEPRETATION TB NEGATIVE NEGATIVE, NEGATIVE (TB antigen response less than 25% of internal negative control value) 10/04/2024 8:29 AM CDT [facility] Comment:No immune response t o Mycobacterium tuberculosis antigens was noted. M. tuberculosis infection unlikely. Blood Venipuncture / Unknown 10/02/2024 10:22 AM CDT 10/02/2024 11:19 AM CDT Narrative [facility] - 10/04/2024 8:29 AM CDT A POSITIVE QUANTIFERON-TB GOLD PLUS RESULT SHOULD [...] and HIV-infected or otherwise immunocompromised individuals. https://www.cdc.gov/tb/publications/guidelines/testing.htm Maria De Jesus Holder PAC IMMUNOLOGY ORDERABLES Fi nal Result [facility] [address] [place] [address], * HEPATITIS C ANTIBODY (05/21/2024 4:19 PM EYEDOTTER) hepatitis C antibody 0.21 <1 S/CO 05/21/2024 10:18 PM EYEDOTTER [facility] Comment: Signal/Cutoff ratio < 0.79 is Nondetected Signal/Cutoff ratio 0.80-0.99 is Grayzone Signal/Cutoff ratio > 0.99 is Detected Supplemental assays are recommended if signal/cutoff ratio is >/=1.00. Signal/cutoff ratio result >/= 5.00 is 97% predictive of positivity for recombinant immunoblot assay (RIBA) and will be reported to the [place] Department of Public Health as required. Blood Venipuncture / Unknown 05/21/2024 4:19 PM EYEDOTTER 05/21/2024 4:41 PM EYEDOTTER us Maria De Jesus Holder PAC CHEMISTRY ORDERABLES Fin al Result [facility] [address] [place] [address], from Last 3 Months or Most Recently Relevant to Health Maintenance Insurance [employer] Care Teams Receiving Checker Relationship Specialty Start Date End Date Maria De Jesus Holder PAC [address] [place] [address] PCP - General Physician Paper Grader 03/15/22 Shane Sena MD [address] [address] Consulting Physician General Surgery 04/12/22
--- OUTSIDE RECORDS SUMMARY | 2024-10-26 12:44 | XMS_ITS | Clinical Summary ---
Author Organization [facility] Address [address] [place] [address] Care Team Providers Care Security Administrator Name Role Phone Karina Eduardo MD Primary Care Provider Source Comments [facility],non-owned Affiliates and Associated Physician Practices is amultiple site organization consisting of ambulatory clinics and hospital sitesin [place], [place], [place] and [place]. This disclosure is being madepursuant to the Care Everywhere program and may not contain all information available regarding this patient. Last updated 18.[facility] Social History Tobacco Use Types Packs/Day Years Used Date Smoking Tobacco: Never Assessed Comments Unknown Sex and Gender Information Value Date Recorded Sex Assigned at Not on file Legal Sex Female 6:22 PM FOOD WRITER Gender Identity Not on file Sexual Orientation Not on file Plan of Treatment Health Maintenance Due Date Last Done Comments HIV SCREENING 2008 HEPATITIS C SCREENING 12/03/2011 DTAP/TDAP/TD VACCINES (1 - Tdap) 2012 HEPATITIS B VACCINE (1 of 3 - 19+ 3-dose series) 2012 COVID-19 VACCINE (1 - 2023- season) 2024 DEPRESSION SCREENING 05/13/2024 INFLUENZA VACCINE (Season Ended) 2025 07/04/2022, 02/23/2013, 03/06/2010, Additional history exists PAP SMEAR 03/22/2025 03/22/2022 ZOSTER VACCINE (1 of 2) 12/08/2043 HIB VACCINE Aged Out No longer eligi ble based on patient's age to complete this topic HPV VACCINE Aged Out No longer eligi ble based on patient's age to complete this topic MENINGOCOCCAL (Group B) VACCINE SHARED DECISION-MAKING Aged Out No longer eligible based on patient's age to complete this topic MENINGOCOCCAL GROUPS A/C/Y/W VACCINE Aged Out No longer eligible based on patient's age to complete this topic PNEUMOCOCCAL VACCINE Aged Out No long er eligible based on patient's age to complete this topic Insurance [facility] Address: [facility] [address] [place] [address] MEDICAID - OUT OF STATE SELF PAY NO INSURANCE Member Subscriber Plan / Payer (Ef fective for All Dates) Name:Birgit Erickson Member ID:Not on file Relation to Subscriber:Not on file Name:BIRGIT ERICKSON Subscriber ID:Not on file (Home) Address: [address] [place] [id number] Payer ID:Not on file Group ID:Not on file Type:Self Pay Address: [place], [place] CIGNA [facility] Address: [facility] [address] [place] [address] Care Teams Security Administrator Relationship Specialty Start Date End Date Karina Eduardo MD [address] [place] [address] PCP - General 02/09/10
--- OUTSIDE RECORDS SUMMARY | 2024-10-26 12:44 | XMS_ITS | Referral Summary ---
Author Organization [place] [address] [facility] Address [address] [place] [address] Care Team Providers Care Graphic Arts Instructor Name Role Phone Melanie Olvera DO Unavailable [phone] Maria De Jesus Holder Primary Care Provider [phone] Allergies Active Allergy Reactions Criticality Noted Date [...] Overview (01/26/2022): CASSANDRA from Dr. Munguia in [place] Dated by LMP c/w 8 wk PNL: [...] 01/11/2022 Overview (08/15/2016): Low back pain Immunizations Immunization Administration Dates Next Due DTaP 01/25/1998 DTaP / HiB 03/25/1995, 5,04/12/1994,02/15 HPV, Quadrivalent 08/29/2007,02/25/2007,12/27/19 07 Hep B, Adolescent or Pediatric 07/09/1994,1993,1993 Influenza, Trivalent, IM (MDV) 3,03/06/2010,02/18/2009,03/23 MMR 01/25/1998,12/10/1994 Meningococcal Polysaccharide (Menomune) 01/30/2006 OPV 01/25/1998, 5,07/09/1994,04/12,02/15/1994 Tdap 01/11/2022,12/26/2006 Tetanus toxoid, adsorbed 12/29/2003 Social History Tobacco Use Types Packs/Day Years Used Date Smoking Tobacco: Every Day Cigarettes 0.5 10.5 Started: 2014 Smokeless Tobacco: Never Tobacco Cessation:Ready [...] on file Legal Sex Female 6:09 PM LEAD PERFORMANCE SUPPORT ANALYST Gender Identity Not on file Sexual Orientation Not on file Occupation Industry Job Start Date Job End Date Unemployed Not on file Not on file Not on file Last Filed Vital Signs Vital Sign Reading Time Taken Comments Blood Pressure 114/81 11/25/2023 3:00 PM CDT Pulse 91 11/25/2023 3:00 PM CDT Temperature 36.9 C (98.4 F) 11/25/2023 3:00 PM CDT Respiratory Rate 92 11/25/2023 3:00 PM CDT Oxygen Saturation 99% 11/25/2023 3:00 PM CDT Inhaled Oxygen Concentration - - Weight 104.3 kg (230 lb) 12/18/2023 8:10 AM CDT Height 170.2 cm (5' 7) 12/18/2023 8:10 AM CDT Body Mass Index 36.02 12/18/2023 8:10 AM CDT Plan of Treatment Not on file Procedures Procedure Name Priority Date/Time Associated Diagnosis Comments PAP WITH REFLEX TO HIGH RISK HPV Routine 03/22/2022 11:29 AM LEAD PERFORMANCE SUPPORT ANALYST Screening for malignant neoplasm of cervix SERUM HEPATITIS C AB Routine 05/12/2014 11:32 AM LEAD PERFORMANCE SUPPORT ANALYST from Last 3 Months or Most Recently Relevant to Health Maintenance Results * Pap with reflex to High Risk HPV (03/22/2022 11:29 AM LEAD PERFORMANCE SUPPORT ANALYST) Thin prep (Pap test) 03/22/2022 11:29 AM LEAD PERFORMANCE SUPPORT ANALYST 03/22/2022 11:29 AM LEAD PERFORMANCE SUPPORT ANALYST Narrative PATHOLOGY CH - 03/26/2022 1:38 PM LEAD PERFORMANCE SUPPORT ANALYST [facility] Department of Pathology [address] [place] [address] Final Report Note to Patients: This report [...] questions and explain the details. Patient Name: BIRGIT ERICKSON Address: [address] [place] [address]- Gender: F : 1995 (Age: 26) Service: Laboratory Location: [facility] #: [id number] Patient Type: SPECIMEN Taken: 03/22/2022 Received: 03/22/2022 Accessioned:: 03/23/2022 Reported: 03/26/2022 Physician(s): Kalpesh Zuleta D.O. Diagnosis: Source of Specimen: Imaged Thinprep Pap Test w/ Reflex HPV - Lean Leader Cytologic Material Specimen Adequacy: - Satisfactory for evaluation; endocervical/transformation zone component present General Category: - Negative for intraepithelial lesion or malignancy HUMBERTO Rayo(ASCP) Report Electronically Reviewed and Signed Out By HUMBERTO Rayo(ASCP) 03/26/2022 13:38:59Specimen(s) Received: A: Imaged Thinprep Pap Test w/ Reflex HPV - Lean Leader Cytologic Material Clinical History: Menstrual History: Post-menopausal The Pap test is a screening test used to aid in the detection of cervical cancer and its precursors. It should not be the sole means by which malignant and premalignant lesions are diagnosed. Both false negative and false positive results may occur. It also has poor sensitivity for the detection of endometrial lesions and should not be used to evaluate suspected endometrial abnormalities. For these reasons it is most important to obtain Pap tests at regular intervals. The performance characteristics of some immunohistochemical stains, fluorescence in-situ hybridization tests and immunophenotyping by flow cytometry cited in this report (if any) were determined by the Surgical Pathology Department at [facility] as part of an ongoing quality improvement specialist program and in compliance with federally mandated regulations drawn from the Clinical Laboratory Improvement Act of 1988 (CLIA '88). Some of these tests rely on the use of analyte specific reagents and are subject to specific labeling requirements by the US Food and Drug Administration. Such diagnostic tests may only be performed in a facility that is certified by the Department of Health and Human Services as a high complexity laboratory under CLIA '88. The FDA has determined that such clearance or approval is not necessary. This test is used for clinical purposes. It should not be regarded as investigational or for research. Nevertheless, federal rules concerning the medical use of analyte specific reagents require that the following disclaimer be attached to the report: This test was developed and its performance characteristics determined by the Surgical Pathology Department [facility]. It has not been cleared or approved by the U. S. Food and Drug Administration. Melanie Olvera DO LAB CYTOLOGY ORDERABLES Final Result PATHOLOGY [address] [place] [address] * Serum Hepatitis C ab (05/12/2014 11:32 AM LEAD PERFORMANCE SUPPORT ANALYST) HCV ab Negative Negative HISTORICAL RESULTS Serum 05/12/2014 11:3 2 AM LEAD PERFORMANCE SUPPORT ANALYST us Lurdes Wnag MD LAB BLOOD ORDERABLE S Final Result HISTORICAL RESULTS from Last 3 Months or Most Recently Relevant to Health Maintenance Insurance [facility] Member Subscriber Plan / Payer (Ef fective 2023-Present) Name:Birgit Erickson Relation to Subscriber:Self Name:Birgti Erickson Payer ID:[id number] (NAIC) Group ID:[id number] Type:CIGNA HMO/PPO Address: [address] [place] [address] CIG [employer] Member Subscriber Plan / Payer (Ef fective 2023-Present) Name:Birgit Erickson Relation to Subscriber:Self Name:Birgit Erickson Payer ID:[id number] ([facility]) Group ID:[id number] Type:ISMAEL HMO/PPO Address: [place] [address] Advance Directives For more information, please contact: [phone] * Full Code (Latest Code Status on File) Date Activated Date Inactivated Comments 02/07/2022 12:43 PM 02/08/2022 4:59 PM * Full Code Date Activated Date Inactivated Comments 02/07/2022 3:26 AM 02/07/2022 12:43 PM Full CPR in case of cardiopulmonary arrest Care Teams Graphic Arts Instructor Relationship Specialty Start Date End Date Maria De Jesus Holder PA [address] [place] [address] [place] [address] PCP - General Cloth Burler 07/08/23 Melanie Olvera DO [address] [address] Consulting Physician Obstetrics and Gynecology 02/08/22
--- OUTSIDE RECORDS SUMMARY | 2024-10-26 12:44 | XMS_ITS | Clinical Summary ---
Author Organization [place] [id number] [facility] Address [address] [place] [address] Care Team Providers Care Erisa Attorney Name Role Phone Melanie Olvera DO Unavailable [phone] Maria De Jesus Holder Primary Care Provider [phone] Allergies Active Allergy Reactions Criticality Noted Date [...] Overview (01/26/2022): CASSANDRA from Dr. Munguia in [place] Dated by LMP c/w 8 wk PNL: [...] on file Legal Sex Female 6:09 PM GOODWILL REPRESENTATIVE Gender Identity Not on file Sexual Orientation [...] Complications:None,Precipito us Labor (<3 hours) Delivery Location:This [facility] ([facility]) Last Filed Vital [...] Date Last Done Comments Depression Screening 1993 Varicella Vaccines (1 of 2 - 13+ 2-dose series) 2006 Regular Well Visit/Exam 18-64 12/08/2011 Pneumococcal vaccine <65 (1 of 2 - PCV) 2012 Cervical Cancer Screening 03/22/2023 03/22/2022, Influenza Vaccine (Season Ended) 2025 07/04/2022, 02/23/2013, 03/06/2010, Additional history exists DTaP/Tdap/Td Vaccine (9 - Td or Tdap) 01/12/2032 01/11/2022, 12/21/2014, 12/26/2006, Additional history exists Hepatitis B Screening Completed 07/09/1994 , 01/11/1994, 1993 HPV Vaccines Completed 08/29/2007, 02/10, 12/26/2006 Hepatitis C Screening Completed 05/12/2014 Procedures Procedure Name Priority Date/Time Associated Diagnosis Comments PAP WITH REFLEX TO HIGH RISK HPV Routine 03/22/2022 11:29 AM GOODWILL REPRESENTATIVE Screening for malignant neoplasm of cervix SERUM HEPATITIS C AB Routine 05/12/2014 11:32 AM GOODWILL REPRESENTATIVE from Last 3 Months or Most Recently Relevant to Health Maintenance Results * Pap with reflex to High Risk HPV (03/22/2022 11:29 AM GOODWILL REPRESENTATIVE) Thin prep (Pap test) 03/22/2022 11:29 AM GOODWILL REPRESENTATIVE 03/22/2022 11:29 AM GOODWILL REPRESENTATIVE Narrative PATHOLOGY CH - 03/26/2022 1:38 PM GOODWILL REPRESENTATIVE [facility] Department of Pathology [address] [place] [id number] Final Report Note to Patients: This [...] the details. Patient Name: BIRGIT ERICKSON Address: [address] [place] [address]- Gender: F : 1995 (Age: 26) Service: Laboratory Location: Hospital #: [id number] Patient Type: SPECIMEN Taken: 03/22/2022 Received: 03/22/2022 Accessioned:: 03/23/2022 Reported: 03/26/2022 Physician(s): Kalpesh Zuleta D.O. Diagnosis: Source of Specimen: Imaged Thinprep Pap Test w/ Reflex HPV - Diagnostic Tech Cytologic Material Specimen Adequacy: - Satisfactory for evaluation; endocervical/transformation zone component present General Category: - Negative for intraepithelial lesion or malignancy HUMBERTO Rayo(ASCP) Report Electronically Reviewed and Signed Out By HUMBERTO Rayo(ASCP) 03/26/2022 13:38:59Specimen(s) Received: A: Imaged Thinprep Pap Test w/ Reflex HPV - Diagnostic Tech Cytologic Material Clinical History: Menstrual History: [...] determined by the Surgical Pathology Department at [facility] as part of an ongoing fiberglass quality technician program and in compliance with federally mandated [...] characteristics determined by the Surgical Pathology Department [facility]. It has not been cleared or approved by the U. S. Food and Drug Administration. Melanie Olvera DO LAB [place]OLOGY [place] [address] [place] [address] * Serum Hepatitis C ab (05/12/2014 11:32 AM GOODWILL REPRESENTATIVE) HCV ab Negative Negative HISTORICAL RESULTS Serum 05/12/2014 11:3 2 AM GOODWILL REPRESENTATIVE Lurdes Wang MD LAB BLOOD ORDERABLE S Final Result Performing Organization Address City/[facility] de Phone Number HISTORICAL RESULTS from Last 3 Months or Most Recently Relevant to Health Maintenance Insurance IDPA ISMAEL BROOKS Member Subscriber Plan / Payer (Ef fective 2023-Present) Name:Birgit Erickson Relation to Subscriber:Self Name:Birgit Erickson Payer ID:[id number] (NAIC) Group ID:[id number] Type:CIGNA HMO/PPO Address: [place] [address] ISMAEL BROOKS Member Subscriber Plan / Payer ( fective 2023-Present) Name:Birgit Erickson Relation to Subscriber:Self Name:Birgit Erickson Payer ID:[id number] (NAIC) Group ID:[id number] Type:CIGNA HMO/PPO Address: [place] [address] Advance Directives For more information, please contact: [phone] * Full Code (Latest Code Status on File) Date Activated Date Inactivated Comments 02/07/2022 12:43 PM 02/08/2022 4:59 PM * Full Code Date Activated Date Inactivated Comments 02/07/2022 3:26 AM 02/07/2022 12:43 PM Full CPR in case of cardiopulmonary arrest Care Teams Erisa Attorney Relationship Specialty Start Date End Date Maria De Jesus Holder PA [address] [address] [place] [address] PCP - General Clinical Medical Assistant 07/08/23 Melanie Olvera DO [address] [place] [address] Consulting Physician Obstetrics and Gynecology 02/08/22
--- OUTSIDE RECORDS SUMMARY | 2024-10-26 12:44 | XMS_ITS | Encounter Summary ---
Author Organization [facility] Address [address] [place] [address] Phone Care Team Providers Care Fixture Fabricator Repairer Name Role Phone Maria De Jesus Holder Primary Care Provider + Shane Sena MD Unavailable [phone] Reason for Visit * Reason Comments Medication Refill Encounter Details Date Type Department Care Team (Late st Contact Info) Description 06/25/2022 Refill [facility] - Family Medicine [facility] [address] [place] [address] Maria De Jesus Holder PAC [address] [place] [address] Medication Refill Social History Tobacco Use Types [...] Coronavirus/COVID-19? No / Unsure 06/13/2022 10:05 AM SENIOR MARKETING ASSOCIATE documented as of this encounter Miscellaneous Notes [...] adjustment disorder, OCD, or PTSD visit diagnosis OR MARKETING ASSOCIATE documented in this encounter Plan of Treatment Upcoming Encounters Date Type Department Care Team (Late st Contact Info) Description 11/18/2024 10:30 AM CDT Office Visit [facility] - Family Medicine - [place] [address] [place] [address] Maria De Jesus Holder PAC [address] [place] [address] documented as of this encounter Visit Diagnoses Not on filedocumented in this encounter Additional Health Concerns Assessment Noted Time PHQ-9 Depression Total Score: 3 04/04/20 3:00 PM SENIOR MARKETING ASSOCIATE documented as of this encounter Care Teams Fixture Fabricator Repairer Relationship Specialty Start Date End Date Maria De Jesus Holder PAC [address] [place] [address] PCP - General Physician Cured Meats Supervisor 03/15/22 Shane Sena MD [address] [address] Consulting Physician General Surgery 04/12/22 documented as of this encounter
--- OUTSIDE RECORDS SUMMARY | 2024-10-26 12:44 | XMS_ITS | Encounter Summary ---
Author Organization [facility] Address [address] [place] [address] Phone Care Team Providers Care Facilities Operator Name Role Phone Shailesh Munguia MD Primary Care Provider [phone] Melanie Olvera DO Unavailable [phone] Maria De Jesus Holder Primary Care Provider [phone] Encounter Details Date Type Department Care Team (Late st Contact Info) Description 11/09/2021 Orders Only [facility] [address] [place] [address] Scanning, Provider Social History Tobacco Use Types Packs/Day Years Used Date Smoking Tobacco: Heavy Smoker Comments:Smoking History Pac ks/day: 0.5 Packs Alcohol Use Standard Drinks/Week Comments No 0 (1 standard drink = 0.6 oz pur e alcohol) Comments Unknown Sex and Gender Information Value Date Recorded Sex Assigned at Not on file Legal Sex Female 6:09 PM [facility] Gender Identity Not on file Sexual Orientation [...] on filedocumented in this encounter Care Teams Facilities Operator Relationship Specialty Start Date End Date Shailesh Munguia MD [address] [place] [address] PCP - General Family Medicine 04/01/20 07/07/23 Maria De Jesus Holder PA [address] [address] [place] [address] PCP - General Captain Room Service 07/08/23 Melanie Olvera DO [address] [place] [address] Consulting Physician Obstetrics and Gynecology 02/08/22 documented as of this encounter
[2024-10-26 13:00] LABS: Basophils Absolute Auto 0.1 K/mm3 (0.0-0.1); Basophils Percent Auto 0.5 % (0.2-1.2); Eosinophils Percent Auto 0.3 % (0-4.4); Hematocrit 41.2 % (37.0-47.0); Hemoglobin 13.5 g/dL (12.0-15.0); Immature Granulocyte Absolute 0.06 K/mm3 (0.00-0.031); Immature Granulocyte Percent A 0.5 % (0-0.5); Lymphocytes Absolute Auto 2.19 K/mm3 (0.9-3.2); Lymphocytes Percent Auto 18.3 % (18.3-44.2); Mean Corpuscular HGB Conc 32.8 g/dl (32-36); Mean Corpuscular Hemoglobin 30.4 pg (26-34); Mean Corpuscular Volume 92.8 fl (80-100); Mean Platelet Volume 9.4 fl (7.4-10.4); Monocytes Absolute Auto 1.1 K/mm3 (0.1-0.6); Neutrophils Absolute Auto 8.5 K/mm3 (1.3-6.7); Neutrophils Percent Auto 71.4 % (45.5-73.1); Platelet Count Result 230 k/mm3 (150-375); Red Blood Count 4.44 M/mm3 (4.2-5.4); Red Cell Distribution Width 13.6 % (11.5-14.5); White Blood Count 11.9 K/mm3 (4.5-10.0)
[2024-10-26 13:12] LABS: Alanine Aminotransferase 13 U/L (6-35); Albumin Level 3.7 g/dL (3.5-5.1); Alkaline Phosphatase 69 U/L (38-126); Aspartate Amino Transferase 18 U/L (14-36); Bilirubin,Total 0.4 mg/dL (0.2-1.3); Blood Urea Nitrogen 7 mg/dL (7-17); CRP 7.9 mg/dL (<1.0); Calcium 8.8 mg/dL (8.4-10.2); Carbon Dioxide 24 mmol/L (22-30); Chloride 108 mmol/L (98-107); Estimated CRCL calculation 116 ml/min; Estimated Glomerular Filt Rate > 60; Glucose 89 mg/dL (65-110); Potassium 4.3 mmol/L (3.4-5.0); Total Protein 6.9 g/dL (6.3-8.2)
[2024-10-26 13:24] LABS: Lactic Acid Reflex < 0.5 mmol/L (0.7-2.0)
[2024-10-26 13:30] LABS: Anion Gap 4 mmol/L (4-12); Sodium 136 mmol/L (137-145)
[2024-10-26 13:37] LABS: Erythrocyte Sedimentation Rate 22 mm/hr (0-20)
[2024-10-26] MEDS: VANCOMYCIN 1,500 MG/NS 500 ML 1,500 MG/500 ML BAG 250 MG IVPB (15:04)
--- NOTE | 2024-10-26 16:08 | PM.IMHP ---
H&P: HPI History of Present Illness Date/Time: 10/26/24 16:08 Chief Complaint: Breast Lump Narrative: 28 y/o F with PMH of depression, anxiety, asthma, and migraines presents here with a breast lump. The patient presents here with a lump and tenderness to her left breast. She reports onset of a lump and erythema to her left breast approximately 1 week ago. She initially sought care with her OB (Dakota BARCENAS( who placed her on Keflex. She has taken 6 days of the course, had one day of abx left. Despite oral antibiotics, the area became more erythematous, has continued to increase in size, and now has heat to it. She reports new milky discharge from her left nipple that she noted today. She denies accompanying nausea, vomiting, chills, or diarrhea. Had a fever last week - 100.8F. She has been taking Percocet, ibuprofen, and Tylenol with last dose at 8:30 a.m. this morning. She has no previous history of breast cancer, reports no family history of breast cancer. Initial VS at presentation: 97.7? F, HR 87, RR 18, 125/91, and 100% on RA. ED workup showed: WBC 11.9, no anemia, sodium 136, creatinine 0.70 and GFR >60, lactic negative, CRP 7.9. Breast ultrasound showed scattered areas of fluid throughout the left breast with increased vascularity at some locations. Considerations include infection although other etiologies such as inflammatory breast carcinoma are not excluded. Review of Systems Review of Systems: All systems reviewed & are unremarkable except as noted in HPI and below PMFSH Past Medical History Medical History Depression Anxiety Asthma Migraine Surgical History Surgical History Hx of hand surgery 04/2020 No significant past surgical history Family History Family History (Updated 10/26/24 @ 17:48 by Kailey Traylor RN) Father Diabetes mellitus Hypercholesteremia Grandparent Hypertension Asthma COPD (chronic obstructive pulmonary disease) Mother Hypertension Hypercholesteremia Social History Social History Smoking packs per day: 0.5 Smoking cigarettes per day: 10.0 Years smoked: 10 Smoking pack-years: 5.00 Smoking status: Current every day smoker Tobacco type: cigarettes Additional smoking assessment comments: 1/2ppd cigarettes x 10 years Alcohol intake: never Alcohol use details: Rarely Substance use: never Do You Feel Safe in your Home?: Yes Lack of Transportation: No Lack of Food: Never True Current Housing: I Have Housing Concerned About Future Housing: No Difficulty Paying Gas/Electric Bills: No Difficulty Paying for Meds: No Currently Unemployed: No Education: Don't Know Difficulty w/ Childcare or Family Care: No Living arrangements: with family Gender identity (if verbalized by the patient): Female Spiritual care concerns: No Meds Home Medications and Allergies Home Medications ?Medication ?Instructions ?Recorded ?Confirmed ?Type fluoxetine 20 mg capsule 20 mg PO DAILY 02/28/22 10/26/24 History sennosides 8.6 mg tablet (senna) 8.6 mg PO HS 02/28/22 10/26/24 History oxycodone-acetaminophen 5 mg-325 1 - 2 tablet PO Q6H PRN pain #30 06/03/24 10/26/24 Rx mg tablet (Percocet) tabs Allergies Allergy/AdvReac Type Severity Reaction Status Date / Time nickel Allergy Mild Rash Verified 06/03/24 10:55 Vital Signs Vital Signs - 24 hr 10/26/24 11:32 10/26/24 11:50 Temperature 97.7 F 97.8 F Pulse Rate 87 92 Respiratory Rate 18 Blood Pressure 125/91 H 129/92 H Pulse Oximetry 100 100 Oxygen Delivery Room Air Exam Const: General: comfortable and no acute distress Other: , female, nontoxic appearance HENMT: Face/Nose/Sinus: Normal nares present Mouth: Yes moist mucous membranes Eyes: General: appearance normal, both eyes and all related structures Sclera: sclerae normal Pupils: Equal, round and reactive pupils present EOM: EOMs intact bilaterally Chest: Other: Significant erythema and tenderness to the left breast. Indurated beneath left nipple extending towards 8:00 a.m.. Approximately 8 x 6 cm. Tender to palpation. Resp: Effort & Inspection: normal respiratory effort Auscultation: clear to auscultation bilaterally Cardio: Rate: regular rate Rhythm: regular rhythm Other: S1-S2 present without murmur, rub, ectopy GI: Other: Abdomen soft, nondistended, nontender. Normoactive bowel sounds in all quadrants. Skin: General skin exam: no rashes or lesions noted Other: See chest exam. Neuro: Speech: normal speech Motor exam (neuro): 5/5 motor strength present throughout Sensory Exam: normal sensation Other: A&O x4 Extrem: General: normal to inspection Psych: Mental Status: mental status grossly normal Affect: normal affect Other: Good insight and judgment, very pleasant H&P: Results Labs Labs: Short CBC 10/26/24 Range/Units 12:53 WBC 11.9 H (4.5-10.0) K/mm3 Hgb 13.5 (12.0-15.0) g/dL Hct 41.2 (37.0-47.0) % Plt Count 230 (150-375) k/mm3 BMP 10/26/24 12:53 Sodium 136 L Potassium 4.3 Chloride 108 H Carbon Dioxide 24 BUN 7 Creatinine 0.70 Glucose 89 Calcium 8.8 Liver Function 10/26/24 Range/Units 12:53 Total Bilirubin 0.4 (0.2-1.3) mg/dL AST 18 (14-36) U/L ALT 13 (6-35) U/L Alkaline Phosphatase 69 (38-126) U/L Albumin 3.7 (3.5-5.1) g/dL Assessment and Plan Assessment and plan (1) Breast lump in female: Code(s): N63.0 - Unspecified lump in unspecified breast Status: Acute Assessment and Plan: - infection v malignancy - US breast, left: Scattered areas of fluid throughout the left breast with increased vascularity at some locations. Considerations include infection although other etiologies such as inflammatory breast carcinoma are not excluded. - initially on Keflex PO, transitioned to Vancomycin IVPB - planned outpatient mammogram on , 10/29 - antipyretics and analgesics p.r.n. Plan Diet: Regular GI Prophylaxis: Not currently indicated DVT Prophylaxis: SCDs IV fluids: LR 100 mL/hour x1 L Lines/Tubes: Peripheral IV Code Status: Full code Quality VTE Prophylaxis VTE prophylaxis: mechanical ordered Hospitalist MIPS Advance Care Plan I have confirmed that the patient's Advanced Care Plan is present, code status is documented, or surrogate decision maker is listed in patient medical record.: Yes Medication Reconciliation I have utilized all available resources to obtain, update and review the patients current medications (includes all prescriptions, OTC, herbals, cannabis, and nutritional supplements).: Yes
[2024-10-26] MEDS: MORPHINE SULFATE (*CRX) 4 MG/ML INJ IV PUSH (16:52)
[2024-10-26] MEDS: LACTATED RINGERS 1,000 ML 100 ML IV CONT (17:25)
[2024-10-26 17:35] VITALS: BMI 32.8
--- NOTE | 2024-10-26 17:44 | ADMGEN ---
This patient, Birgit Estrada, was admitted to 3 [facility] Surg Room 320-01. Patient/family oriented to hospital policies and general routines including ID bracelet, bed and alarms, visiting hours, pain management, procedures, bathroom and other care routines, personal items, smoking policy, room service/diet, and visiting hours. Information on how to activate the Rapid Response Team has been discussed. Patient/Family are encouraged to report perceived risks to care and to ask questions if they do not understand what they are told or what they should do. Report from Amanda in the ER.
[2024-10-26] MEDS: HYDROcodone/acetaminophen (*CRX) 5-325 MG TABLET 1 TAB PO (17:59)
[2024-10-26 21:25] VITALS: BP 111/81; PULSE 95; RESP 16; TEMP 36.5; O2SAT 98
[2024-10-27] MEDS: VANCOMYCIN 1,500 MG/NS 500 ML 1,500 MG/500 ML BAG 250 MG IVPB (03:45)
[2024-10-27 06:00] VITALS: BP 117/78; PULSE 94; RESP 20; TEMP 36.8; O2SAT 96
[2024-10-27 06:01] LABS: Basophils Absolute Auto 0.1 K/mm3 (0.0-0.1); Basophils Percent Auto 0.4 % (0.2-1.2); Eosinophils Absolute Auto 0.1 K/mm3 (0-0.3); Eosinophils Percent Auto 0.6 % (0-4.4); Hematocrit 38.9 % (37.0-47.0); Hemoglobin 12.7 g/dL (12.0-15.0); Immature Granulocyte Absolute 0.04 K/mm3 (0.00-0.031); Immature Granulocyte Percent A 0.3 % (0-0.5); Lymphocytes Absolute Auto 1.69 K/mm3 (0.9-3.2); Mean Corpuscular HGB Conc 32.6 g/dl (32-36); Mean Corpuscular Hemoglobin 30.4 pg (26-34); Mean Corpuscular Volume 93.1 fl (80-100); Mean Platelet Volume 9.6 fl (7.4-10.4); Monocytes Absolute Auto 1.2 K/mm3 (0.1-0.6); Monocytes Percent Auto 9.9 % (2.6-8.5); Neutrophils Percent Auto 74.8 % (45.5-73.1); Platelet Count Result 235 k/mm3 (150-375); Red Blood Count 4.18 M/mm3 (4.2-5.4); Red Cell Distribution Width 13.7 % (11.5-14.5); White Blood Count 12.1 K/mm3 (4.5-10.0)
[2024-10-27 06:23] LABS: Anion Gap 6 mmol/L (4-12); Blood Urea Nitrogen 7 mg/dL (7-17); Calcium 8.5 mg/dL (8.4-10.2); Carbon Dioxide 21 mmol/L (22-30); Chloride 108 mmol/L (98-107); Estimated CRCL calculation 121 ml/min; Estimated Glomerular Filt Rate > 60; Glucose 96 mg/dL (65-110); Potassium 3.9 mmol/L (3.4-5.0); Sodium 135 mmol/L (137-145)
--- NOTE | 2024-10-27 07:12 | P.PNIM_ITS ---
Progress Note: A&P Assessment and Plan (1) Breast lump in female: Code(s): N63.0 - Unspecified lump in unspecified breast Status: Acute Assessment and Plan: - infection v malignancy - US breast, left: Scattered areas of fluid throughout the left breast with increased vascularity at some locations. Considerations include infection although other etiologies such as inflammatory breast carcinoma are not exclu ded. - initially on Keflex PO, transitioned to Vancomycin IVPB - WBC increased to 12.4, redness is worsening on Vanco ---> stop vanco, start Fluconazole and Linzeloid today. - MRI breast w & w/o contrast today. - planned outpatient mammogram on , 10/29 - antipyretics and analgesics p.r.n. - trend labs daily Plan Diet: Regular GI Prophylaxis: Not currently indicated DVT Prophylaxis: SCDs Lines/Tubes: Peripheral IV Code Status: Full code Discharge plan: home when stable. Time Spent With Patient Time with patient: Greater than 35 minutes Subjective Date/time seen: 10/27/24 07:12 Interval history: This is a 28 y/o female patient that is sitting up in bed today, reporting that her left breast seems worse today. Patient has had one day of IV vancomycin and failed outpatient keflex. patient reports low grade fever and generalized malaise as well. She is very tearful and scared of her diagnosis. Is wanting further testing if possible since she seems to be getting worse. Patient denies any distress. No N/V/D. Review of Systems Review of Systems: All systems reviewed & are unremarkable except as noted in HPI and below Exam Const: General: no acute distress, tired appearing and uncomfortable Other: , female, nontoxic appearance HENMT: Head: normal to inspection and normocephalic Face/Nose/Sinus: Normal nares present Mouth: Yes moist mucous membranes Eyes: General: appearance normal, both eyes and all related structures Sclera: sclerae normal Pupils: Equal, round and reactive pupils present EOM: EOMs intact bilaterally Neck: Neck: full ROM and no lymphadenopathy Chest: Other: Significant erythema and tenderness to the left breast. Indurated beneath left nipple extending towards 8 o'clock extending to 12 o'clock position then extending to the chest wall. Approximately 8 x 8 cm. Tender to palpation. very warm to touch. Resp: Effort & Inspection: normal respiratory effort Auscultation: clear to auscultation bilaterally Cardio: Rate: regular rate Rhythm: regular rhythm Other: S1-S2 present without murmur, rub, ectopy GI: Other: Abdomen soft, nondistended, nontender. Normoactive bowel sounds in all quadrants. Skin: General skin exam: no rashes or lesions noted Other: See chest exam. Neuro: Cranial nerves: Yes Equal, round and reactive pupils present Speech: normal speech Motor exam (neuro): 5/5 motor strength present throughout Sensory Exam: normal sensation Other: A&O x4 Extrem: General: normal to inspection Psych: Mental Status: mental status grossly normal Affect: normal affect Other: Good insight and judgment, very pleasant Objective Data Vital Signs Vital Signs: Vital Signs - 24 hr 10/26/24 11:32 10/26/24 11:50 10/26/24 20:00 Temperature 97.7 F 97.8 F Pulse Rate 87 92 Respiratory Rate 18 Blood Pressure 125/91 H 129/92 H Pulse Oximetry 100 100 Oxygen Delivery Room Air Room Air 10/26/24 21:25 10/27/24 06:00 Temperature 97.7 F 98.2 F Pulse Rate 95 94 Respiratory Rate 16 20 Blood Pressure 111/81 117/78 Pulse Oximetry 98 96 Oxygen Delivery Intake/Output Intake/Output: Intake & Output 10/24/24 10/25/24 10/26/24 10/27/24 23:59 23:59 23:59 23:59 Intake Total 800 Balance 800 Meds/Results Medications: Active Medications Generic Name Dose Route Start Last Admin Trade Name Freq PRN Reason Stop Dose Admin Acetaminophen 650 mg 10/26/24 14:44 Acetaminophen 325 Mg Tablet PO Q4H PRN Mild Pain (1-3) or Fever Hydrocodone Bitart/Acetaminophen 1 tab 10/26/24 16:40 10/26/24 17:59 Hydrocodone/Acetaminophen (*Crx) 5-325 Mg Tablet PO 1 tab Q4H PRN Administration Pain Rated 4-6 Dextrose 12.5 gm 10/26/24 14:44 Dextrose 50% 25 Gm/50 Ml Syringe IV PUSH PRN PRN Hypoglycemia Protocol Fluoxetine HCl 20 mg 10/27/24 09:00 Fluoxetine Hcl 20 Mg Capsule PO DAILY VENKAT Glucagon 1 mg 10/26/24 14:44 Glucagon For Inj 1 Mg Vial IM PRN PRN Hypoglycemia Protocol Glucose 15 gm 10/26/24 14:44 Glucose Oral Gel 15 Gm Of Glucse In 37.5 Gm Tube PO PRN PRN Hypoglycemia Protocol Vancomycin HCl 1,500 mg in 500 mls @ 250 mls/hr 10/27/24 03:00 10/27/24 05:45 Vancomycin 1,500 Mg/Ns 500 Ml IVPB Infused Q12H VENKAT Infusion Dextrose 1,000 mls @ 100 mls/hr 10/26/24 14:44 Dextrose 5% 1,000 Ml IVPB PRN PRN Hypoglycemia Protocol Morphine Sulfate 4 mg 10/26/24 14:44 10/26/24 16:52 Morphine Sulfate (*Crx) 4 Mg/Ml Inj IV PUSH 4 mg Q2H PRN Administration Pain Rated 7-10 Ondansetron HCl 4 mg 10/26/24 14:44 Ondansetron Inj 4 Mg/2 Ml Vial IV PUSH Q4H PRN Nausea Senna 8.6 mg 10/27/24 21:00 Sennosides 8.6 Mg Tablet PO HS VENKAT Radiology Results: ITS Impressions Breast Ultrasound 10/26/24 13:27 Impression: 1: Scattered areas of fluid throughout the left breast with increased vascularity at some locations. Considerations include infection although other etiologies such as inflammatory breast carcinoma are not excluded. Recommendation: Recommend correlation with diagnostic bilateral mammogram. BI-RADS CATEGORY 0 - INCOMPLETE STUDY, NEED ADDITIONAL IMAGING EVALUATION. Labs Labs: Laboratory Results - last 24 hr 10/26/24 10/27/24 12:53 05:54 WBC 11.9 H 12.1 H RBC 4.44 4.18 L Hgb 13.5 12.7 Hct 41.2 38.9 MCV 92.8 93.1 MCH 30.4 30.4 MCHC 32.8 32.6 RDW 13.6 13.7 Plt Count 230 235 MPV 9.4 9.6 Immature Gran % (Auto) 0.5 0.3 Neut % (Auto) 71.4 74.8 H Lymph % (Auto) 18.3 14.0 L [place] % (Auto) 9.0 H 9.9 H Eos % (Auto) 0.3 0.6 Baso % (Auto) 0.5 0.4 Lymph # (Auto) 2.19 1.69 [place] # (Auto) 1.1 H 1.2 H Eos # (Auto) 0.0 0.1 Baso # (Auto) 0.1 0.1 Abs Immat Gran (auto) 0.06 H 0.04 H Absolute Neuts (auto) 8.5 H 9.0 H Absolute Nucleated RBC 0.000 0.000 Nucleated RBC % 0.0 0.0 ESR 22 H Sodium 136 L 135 L Potassium 4.3 3.9 Chloride 108 H 108 H Carbon Dioxide 24 21 L Anion Gap 4 6 BUN 7 7 Creatinine 0.70 0.67 L Estim Creat Clear Calc 116 121 Estimated GFR > 60 > 60 Glucose 89 96 Lactic Acid < 0.5 L Calcium 8.8 8.5 Total Bilirubin 0.4 AST 18 ALT 13 Alkaline Phosphatase 69 C-Reactive Protein 7.9 H Total Protein 6.9 Albumin 3.7 Quality VTE Prophylaxis VTE prophylaxis: mechanical ordered Hospitalist [facility] Advance Care Plan I have confirmed that the patient's Advanced Care Plan is present, code status is documented, or surrogate decision maker is listed in patient medical record.: Yes Medication Reconciliation I have utilized all available resources to obtain, update and review the patients current medications (includes all prescriptions, OTC, herbals, cannabis, and nutritional supplements).: Yes The patient is not eligible for med reconciliation; the patient is in a emergent medical situation where delaying treatment would jeopardize the patients health.: Yes
[2024-10-27 08:00] VITALS: PULSE 94; RESP 20; O2SAT 96
[2024-10-27] MEDS: FLUoxetine HCL 20 MG CAPSULE PO (09:37)
[2024-10-27] MEDS: FLUCONAZOLE 400 MG/NACL 200 ML 400 MG/200 ML BAG 100 MG IVPB (13:07)
[2024-10-27 14:00] VITALS: BP 121/80; PULSE 91; RESP 20; TEMP 36.1; O2SAT 97
[2024-10-27] MEDS: LINEZOLID 600 MG TABLET PO ×2 (14:34→20:01)
--- NOTE | 2024-10-27 15:24 | PM.CNGS ---
Assessment and Plan Assessment and plan (1) Left breast abscess: Code(s): N61.1 - Abscess of the breast and nipple Status: Acute Assessment and Plan: I have reviewed the MRI and discussed the findings with the patient. She has what appears to be a complex abscess within the subareolar region of the left breast. I have recommended incision and drainage of complex left breast abscess to be performed in the OR under anesthesia. She is already on broad-spectrum IV antibiotics. Will plan to culture the fluid to identify any potential isolated bacteria to narrow antibiotic treatment. I discussed that this will be left open to continue to drain and will likely require wound care postoperatively. Will try to limit size of incision and placed incision in the location that will hopefully heal well, but discussed that there will be some risk of scarring related to this. (2) Cellulitis of left breast: Code(s): N61.0 - Mastitis without abscess Status: Acute (3) Smoker: Code(s): F17.200 - Nicotine dependence, unspecified, uncomplicated Status: Acute History of Present Illness Consult details Consult date: 10/27/24 Reason for consult: other (Left breast abscess) Requesting physician: Carmen Akbar APRN Narrative: This is a 28-year-old woman who I am asked to see for a left breast abscess. She has been experiencing progressive swelling and tenderness to the left breast over the past week. She was seen by her OBGYN Dr. Duncan and was placed on Keflex. She has been on antibiotics for almost a week now but has continued to have worsening swelling. She denies any recent wounds or injuries to the breast. She is not currently breast feeding. She has been experiencing fevers for the past several days. She presented to the emergency department last night and an ultrasound was performed. This showed evidence of multiple scattered fluid collections throughout the left breast she was started on broad-spectrum IV antibiotics and admitted for further treatment. MRI was performed today which showed evidence of a complex abscess in the subareolar region of the left breast. There was also reactive enlarged lymph nodes. Review of Systems Review of Systems: All systems reviewed & are unremarkable except as noted in HPI and below Constitutional: Constitutional: Reports as per HPI Eyes: Eyes: Denies change in vision ENT: Denies hearing loss, Denies neck pain and Denies sore throat Cardiovascular: Cardiovascular: Denies chest pain and Denies dyspnea Respiratory: Respiratory: Denies cough, Denies dyspnea and Denies wheezing Gastrointestinal: Gastrointestinal: Denies nausea and Denies vomiting Genitourinary: Genitourinary: Denies hematuria and Denies dysuria Musculoskeletal: Musculoskeletal: Denies arthralgias, Denies joint swelling and Denies neck pain Integumentary/Breasts: Skin/Breast: Reports as per HPI Allergic/Immunologic: Allergic/Immunologic: Denies wheezing [facility] Past Medical History Medical History Depression Anxiety Asthma Migraine Surgical History Surgical History Hx of hand surgery 04/2020 No significant past surgical history Family History Family History (Updated 10/26/24 @ 17:48 by Kailey Traylor RN) Father Diabetes mellitus Hypercholesteremia Grandparent Hypertension Asthma COPD (chronic obstructive pulmonary disease) Mother Hypertension Hypercholesteremia Social History Social History Smoking packs per day: 0.5 Smoking cigarettes per day: 10.0 Years smoked: 10 Smoking pack-years: 5.00 Smoking status: Current every day smoker Tobacco type: cigarettes Additional smoking assessment comments: 1/2ppd cigarettes x 10 years Alcohol intake: never Alcohol use details: Rarely Substance use: never Do You Feel Safe in your Home?: Yes Lack of Transportation: No Lack of Food: Never True Current Housing: I Have Housing Concerned About Future Housing: No Difficulty Paying Gas/Electric Bills: No Difficulty Paying for Meds: No Currently Unemployed: No Education: Don't Know Difficulty w/ Childcare or Family Care: No Living arrangements: with family Gender identity (if verbalized by the patient): Female Spiritual care concerns: No Meds Home Medications and Allergies Home Medications ?Medication ?Instructions ?Recorded ?Confirmed ?Type fluoxetine 20 mg capsule 20 mg PO DAILY 02/28/22 10/26/24 History sennosides 8.6 mg tablet (senna) 8.6 mg PO HS 02/28/22 10/26/24 History oxycodone-acetaminophen 5 mg-325 1 - 2 tablet PO Q6H PRN pain #30 01/22/25 06/16/25 Rx mg tablet (Percocet) tabs Allergies Allergy/AdvReac Type Severity Reaction Status Date / Time nickel Allergy Mild Rash Verified 06/03/24 10:55 Vital Signs Vital Signs - 24 hr 10/26/24 20:00 10/26/24 21:25 10/27/24 06:00 Temperature 97.7 F 98.2 F Pulse Rate 95 94 Respiratory Rate 16 20 Blood Pressure 111/81 117/78 Pulse Oximetry 98 96 Oxygen Delivery Room Air 10/27/24 08:00 10/27/24 14:00 Temperature 97.0 F L Pulse Rate 94 91 Respiratory Rate 20 20 Blood Pressure 121/80 Pulse Oximetry 96 97 Oxygen Delivery Room Air Exam Const: General: alert; No acute distress Orientation/consciousness: patient oriented x3 Limitations: no limitations HENMT: Head: normocephalic and atraumatic Ears: hearing grossly normal bilaterally Face/Nose/Sinus: Normal external nose present and Normal nares present Mouth: Yes Normal oral and palatal mucosa present and Yes moist mucous membranes Eyes: General: appearance normal, both eyes and all related structures Conjunctivae: conjunctivae normal Sclera: sclerae normal Pupils: Equal, round and reactive pupils present EOM: EOMs intact bilaterally Neck: Neck: normal visual inspection, full ROM, no lymphadenopathy, supple and no JVD Lymphatic: no lymphadenopathy noted Chest: Breast/axilla inspection: abnormal inspection of the breast left erythema and other (Fluctuance and induration in periareaolar region extending to the inner breast, tender to palpaption, no open wound or drainage) Resp: Effort & Inspection: normal respiratory effort and able to speak in complete sentences Auscultation: clear to auscultation bilaterally Percussion: percussion normal Cardio: Jugular venous distension: no JVD Rate: regular rate Rhythm: regular rhythm Heart sounds: S1 normal heart sound present and S2 normal heart sound present Peripheral pulses: Peripheral pulses 2+ throughout GI: Inspection: normal to inspection Auscultation: normal bowel sounds : General: Yes no CVA tenderness Back/Spine/Pelvis: Back: no CVA tenderness Skin: General skin exam: normal color and dry skin Neuro: General: patient oriented x3, gait normal, moves all extremities, no focal motor deficits and CN's II-XI intact bilaterally Cranial nerves: Yes Equal, round and reactive pupils present Speech: normal speech Extrem: General: normal to inspection and capillary refill normal Results Labs 10/27/24 05:54 10/27/24 05:54 Labs: Abnormal lab results 10/27/24 Range/Units 05:54 WBC 12.1 H (4.5-10.0) K/mm3 RBC 4.18 L (4.2-5.4) M/mm3 Neut % (Auto) 74.8 H (45.5-73.1) % Lymph % (Auto) 14.0 L (18.3-44.2) % [place] % (Auto) 9.9 H (2.6-8.5) % [place] # (Auto) 1.2 H (0.1-0.6) K/mm3 Abs Immat Gran (auto) 0.04 H (0.00-0.031) K/mm3 Absolute Neuts (auto) 9.0 H (1.3-6.7) K/mm3 Sodium 135 L (137-145) mmol/L Chloride 108 H (98-107) mmol/L Carbon Dioxide 21 L (22-30) mmol/L Creatinine 0.67 L (0.7-1.0) mg/dL Diabetes panel 10/27/24 Range/Units 05:54 Sodium 135 L (137-145) mmol/L Potassium 3.9 (3.4-5.0) mmol/L Chloride 108 H (98-107) mmol/L Carbon Dioxide 21 L (22-30) mmol/L BUN 7 (7-17) mg/dL Creatinine 0.67 L (0.7-1.0) mg/dL Glucose 96 (65-110) mg/dL Calcium 8.5 (8.4-10.2) mg/dL Calcium panel 10/27/24 Range/Units 05:54 Calcium 8.5 (8.4-10.2) mg/dL Pituitary panel 10/27/24 Range/Units 05:54 Sodium 135 L (137-145) mmol/L Potassium 3.9 (3.4-5.0) mmol/L Chloride 108 H (98-107) mmol/L Carbon Dioxide 21 L (22-30) mmol/L BUN 7 (7-17) mg/dL Creatinine 0.67 L (0.7-1.0) mg/dL Glucose 96 (65-110) mg/dL Calcium 8.5 (8.4-10.2) mg/dL Adrenal panel 10/27/24 Range/Units 05:54 Sodium 135 L (137-145) mmol/L Potassium 3.9 (3.4-5.0) mmol/L Chloride 108 H (98-107) mmol/L Carbon Dioxide 21 L (22-30) mmol/L BUN 7 (7-17) mg/dL Creatinine 0.67 L (0.7-1.0) mg/dL Glucose 96 (65-110) mg/dL Calcium 8.5 (8.4-10.2) mg/dL All other labs normal. Imaging Additional studies: ITS Impressions Breast Ultrasound 10/26/24 13:27 Impression: 1: Scattered areas of fluid throughout the left breast with increased vascularity at some locations. Considerations include infection although other etiologies such as inflammatory breast carcinoma are not excluded. Recommendation: Recommend correlation with diagnostic bilateral mammogram. BI-RADS CATEGORY 0 - INCOMPLETE STUDY, NEED ADDITIONAL IMAGING EVALUATION. Breast MRI 10/27/24 12:35 IMPRESSION: 1: Right breast: Negative. No evidence of malignancy. BI-RADS category 1. Recommend annual mammography follow-up. 2: Left breast: Complex multiloculated fluid with surrounding diffuse interstitial thickening/fluid throughout the left breast. The fluid measures approximately 5.2 x 5 x 3.5 cm in conglomeration with peripheral enhancement. Multiple abnormal enlarged lymph nodes are present which have a pathologic appearance. There is associated increased vascularity with skin thickening. Although this is most likely infectious/inflammatory process with abscess formation, inflammatory breast carcinoma could have a similar appearance with areas of necrosis and hypervascularity. Recommend further evaluation with aspiration of fluid for infectious/inflammatory etiologies followed by core biopsy of the associated surrounding tissue to exclude underlying malignancy. BI-RADS Category 4.
[2024-10-27] MEDS: ACETAMINOPHEN 325 MG TABLET 650 MG PO (20:00)
[2024-10-27] MEDS: SENNOSIDES 8.6 MG TABLET PO (20:01)
[2024-10-27 21:18] VITALS: BP 121/78; PULSE 85; RESP 16; TEMP 36.6; O2SAT 98
[2024-10-28] VITALS (16 sets, daily range): BP systolic 106–146; BP diastolic 72–91; PULSE 50–98; RESP 14–20; TEMP 35.6–37.1; O2SAT 91–100; BMI 32.8
[2024-10-28 06:05] LABS: Basophils Absolute Auto 0.1 K/mm3 (0.0-0.1); Basophils Percent Auto 0.4 % (0.2-1.2); Eosinophils Absolute Auto 0.1 K/mm3 (0-0.3); Eosinophils Percent Auto 0.7 % (0-4.4); Hematocrit 40.5 % (37.0-47.0); Immature Granulocyte Absolute 0.04 K/mm3 (0.00-0.031); Immature Granulocyte Percent A 0.3 % (0-0.5); Lymphocytes Absolute Auto 2.09 K/mm3 (0.9-3.2); Lymphocytes Percent Auto 18.1 % (18.3-44.2); Mean Corpuscular HGB Conc 32.1 g/dl (32-36); Mean Corpuscular Volume 93.3 fl (80-100); Mean Platelet Volume 9.7 fl (7.4-10.4); Monocytes Absolute Auto 1.2 K/mm3 (0.1-0.6); Monocytes Percent Auto 10.1 % (2.6-8.5); Neutrophils Absolute Auto 8.1 K/mm3 (1.3-6.7); Neutrophils Percent Auto 70.4 % (45.5-73.1); Platelet Count Result 252 k/mm3 (150-375); Red Blood Count 4.34 M/mm3 (4.2-5.4); Red Cell Distribution Width 13.7 % (11.5-14.5); White Blood Count 11.5 K/mm3 (4.5-10.0)
[2024-10-28 06:35] LABS: Alanine Aminotransferase 13 U/L (6-35); Albumin Level 3.7 g/dL (3.5-5.1); Alkaline Phosphatase 68 U/L (38-126); Anion Gap 9 mmol/L (4-12); Aspartate Amino Transferase 17 U/L (14-36); Bilirubin,Total 0.3 mg/dL (0.2-1.3); Blood Urea Nitrogen 7 mg/dL (7-17); Calcium 8.8 mg/dL (8.4-10.2); Carbon Dioxide 23 mmol/L (22-30); Chloride 107 mmol/L (98-107); Estimated CRCL calculation 107 ml/min; Estimated Glomerular Filt Rate > 60; Glucose 99 mg/dL (65-110); Potassium 3.8 mmol/L (3.4-5.0); Sodium 139 mmol/L (137-145); Total Protein 6.8 g/dL (6.3-8.2)
--- NOTE | 2024-10-28 07:43 | P.PNIM_ITS ---
Progress Note: A&P Assessment and Plan (1) Left breast abscess: Code(s): N61.1 - Abscess of the breast and nipple Status: Acute Assessment and Plan: * infection v malignancy, infection likely * US breast, left: Scattered areas of fluid throughout the left breast with increased vascularity at some locations. Considerations include infection although other etiologies such as inflammatory breast carcinoma are not excluded. * initially on Keflex PO, transitioned to Vancomycin IVPB * WBC increased to 12.4, redness is worsening on Vanco * Stop vanco, started Fluconazole and Linzeloid * MRI breast: Complex multiloculated fluid with surrounding diffuse interstitial thickening/fluid throughout the left breast. * planned outpatient mammogram on , 10/29 * antipyretics and analgesics p.r.n. * trend labs daily * Gen surg consulted for I&D of L Breast * post op day 0 of I&D * Tolerated procedure well * Gen surg to continue following for wound care (2) Cellulitis of left breast: Code(s): N61.0 - Mastitis without abscess Status: Acute Assessment and Plan: * See above (3) Smoker: Code(s): F17.200 - Nicotine dependence, unspecified, uncomplicated Status: Acute Assessment and Plan: * Nicotine cessation counseling Plan Diet: Regular GI Prophylaxis: Not currently indicated DVT Prophylaxis: SCDs Lines/Tubes: Peripheral IV Code Status: Full code Discharge plan: home when stable. Subjective Date/time seen: 10/28/24 07:43 Interval history: 28 y/o F with PMH of depression, anxiety, asthma, and migraines presents here with a breast lump. 10/28/2024 Patient standing comfortably at bedside at time of examination. Patient is post- op hour 5 of I&D of complex left breast abscess, performed by Dr. Lofton. Tolerated procedure well, pt complaining of some mild wound site pain but otherwise has no complaints. Wound cultures pending at this time. Wound care t hrough surgery. Review of Systems Review of Systems: All systems reviewed & are unremarkable except as noted in HPI and below Exam Const: General: comfortable, no acute distress, tired appearing and uncomfortable Other: , female, nontoxic appearance HENMT: Head: normal to inspection and normocephalic Face/Nose/Sinus: Normal nares present Mouth: Yes moist mucous membranes Eyes: General: appearance normal, both eyes and all related structures Sclera: sclerae normal Pupils: Equal, round and reactive pupils present EOM: EOMs intact bilaterally Neck: Neck: full ROM and no lymphadenopathy Chest: Other: Significant erythema and tenderness to the left breast. Indurated beneath left nipple extending towards 8 o'clock extending to 12 o'clock position then extending to the chest wall. Approximately 8 x 8 cm. Tender to palpation. very warm to touch. Resp: Effort & Inspection: normal respiratory effort Auscultation: clear to auscultation bilaterally Cardio: Rate: regular rate Rhythm: regular rhythm Other: S1-S2 present without murmur, rub, ectopy GI: Other: Abdomen soft, nondistended, nontender. Normoactive bowel sounds in all quadrants. Skin: General skin exam: no rashes or lesions noted Other: See chest exam. Neuro: Cranial nerves: Yes Equal, round and reactive pupils present Speech: normal speech Motor exam (neuro): 5/5 motor strength present throughout Sensory Exam: normal sensation Other: A&O x4 Extrem: General: normal to inspection Psych: Mental Status: mental status grossly normal Affect: normal affect Other: Good insight and judgment, very pleasant Objective Data Vital Signs Vital Signs: Vital Signs - 24 hr 10/27/24 08:00 10/27/24 14:00 10/27/24 20:00 Temperature 97.0 F L Pulse Rate 94 91 Respiratory Rate 20 20 Blood Pressure 121/80 Pulse Oximetry 96 97 Oxygen Delivery Room Air Room Air 10/27/24 21:18 10/28/24 05:58 Temperature 97.8 F 97.7 F Pulse Rate 85 79 Respiratory Rate 16 20 Blood Pressure 121/78 119/82 Pulse Oximetry 98 97 Oxygen Delivery Intake/Output Intake/Output: Intake & Output 10/25/24 10/26/24 10/27/24 10/28/24 23:59 23:59 23:59 23:59 Intake Total 1760 0 Balance 1760 0 Meds/Results Medications: Active Medications Generic Name Dose Route Start Last Admin Trade Name Freq PRN Reason Stop Dose Admin Acetaminophen 650 mg 10/26/24 14:44 10/27/24 20:00 Acetaminophen 325 Mg Tablet PO 650 mg Q4H PRN Administration Mild Pain (1-3) or Fever Hydrocodone Bitart/Acetaminophen 1 tab 10/26/24 16:40 10/26/24 17:59 Hydrocodone/Acetaminophen (*Crx) 5-325 Mg Tablet PO 1 tab Q4H PRN Administration Pain Rated 4-6 Dextrose 12.5 gm 10/26/24 14:44 Dextrose 50% 25 Gm/50 Ml Syringe IV PUSH PRN PRN Hypoglycemia Protocol Fluconazole 400 mg 10/28/24 09:00 Fluconazole 100 Mg Tablet PO QAM VENKAT Fluoxetine HCl 20 mg 10/27/24 09:00 10/27/24 09:37 Fluoxetine Hcl 20 Mg Capsule PO 20 mg DAILY VENKAT Administration Glucagon 1 mg 10/26/24 14:44 Glucagon For Inj 1 Mg Vial IM PRN PRN Hypoglycemia Protocol Glucose 15 gm 10/26/24 14:44 Glucose Oral Gel 15 Gm Of Glucse In 37.5 Gm Tube PO PRN PRN Hypoglycemia Protocol Dextrose 1,000 mls @ 100 mls/hr 10/26/24 14:44 Dextrose 5% 1,000 Ml IVPB PRN PRN Hypoglycemia Protocol Linezolid 600 mg 10/27/24 11:30 10/27/24 20:01 Linezolid 600 Mg Tablet PO 600 mg Q12HR VENKAT Administration Morphine Sulfate 4 mg 10/26/24 14:44 10/26/24 16:52 Morphine Sulfate (*Crx) 4 Mg/Ml Inj IV PUSH 4 mg Q2H PRN Administration Pain Rated 7-10 Ondansetron HCl 4 mg 10/26/24 14:44 Ondansetron Inj 4 Mg/2 Ml Vial IV PUSH Q4H PRN Nausea Senna 8.6 mg 10/27/24 21:00 10/27/24 20:01 Sennosides 8.6 Mg Tablet PO 8.6 mg HS VENKAT Administration Radiology Results: ITS Impressions Breast Ultrasound 10/26/24 13:27 Impression: 1: Scattered areas of fluid throughout the left breast with increased vascularity at some locations. Considerations include infection although other etiologies such as inflammatory breast carcinoma are not excluded. Recommendation: Recommend correlation with diagnostic bilateral mammogram. BI-RADS CATEGORY 0 - INCOMPLETE STUDY, NEED ADDITIONAL IMAGING EVALUATION. Breast MRI 10/27/24 12:35 IMPRESSION: 1: Right breast: Negative. No evidence of malignancy. BI-RADS category 1. Recommend annual mammography follow-up. 2: Left breast: Complex multiloculated fluid with surrounding diffuse interstitial thickening/fluid throughout the left breast. The fluid measures approximately 5.2 x 5 x 3.5 cm in conglomeration with peripheral enhancement. Multiple abnormal enlarged lymph nodes are present which have a pathologic appearance. There is associated increased vascularity with skin thickening. Although this is most likely infectious/inflammatory process with abscess formation, inflammatory breast carcinoma could have a similar appearance with areas of necrosis and hypervascularity. Recommend further evaluation with aspiration of fluid for infectious/inflammatory etiologies followed by core biopsy of the associated surrounding tissue to exclude underlying malignancy. BI-RADS Category 4. Labs Labs: Laboratory Results - last 24 hr 10/28/24 05:41 WBC 11.5 H RBC 4.34 Hgb 13.0 Hct 40.5 MCV 93.3 MCH 30.0 MCHC 32.1 RDW 13.7 Plt Count 252 MPV 9.7 Immature Gran % (Auto) 0.3 Neut % (Auto) 70.4 Lymph % (Auto) 18.1 L Sanders % (Auto) 10.1 H Eos % (Auto) 0.7 Baso % (Auto) 0.4 Lymph # (Auto) 2.09 Sanders # (Auto) 1.2 H Eos # (Auto) 0.1 Baso # (Auto) 0.1 Abs Immat Gran (auto) 0.04 H Absolute Neuts (auto) 8.1 H Absolute Nucleated RBC 0.000 Nucleated RBC % 0.0 Sodium 139 Potassium 3.8 Chloride 107 Carbon Dioxide 23 Anion Gap 9 BUN 7 Creatinine 0.76 Estim Creat Clear Calc 107 Estimated GFR > 60 Glucose 99 Calcium 8.8 Total Bilirubin 0.3 AST 17 ALT 13 Alkaline Phosphatase 68 Total Protein 6.8 Albumin 3.7 Quality VTE Prophylaxis VTE prophylaxis: mechanical ordered
[2024-10-28] MEDS: FLUoxetine HCL 20 MG CAPSULE PO (07:59)
[2024-10-28] MEDS: LINEZOLID 600 MG TABLET PO ×2 (07:59→20:32)
[2024-10-28] MEDS: FLUCONAZOLE 100 MG TABLET 400 MG PO (07:59)
--- NOTE | 2024-10-28 08:43 | P.PNAN_ITS ---
Anes - Initial Pre Proc Eval Procedure: Operation Date: 10/28/24 10:00 Proposed Procedures p Incision And Drainage Left Breast Abscess - Steve Lofton DO Date/Time: 10/28/24 08:43 Surgeon: Rosie Fontanez MD Pre Op Diagnosis: L breast cellulitis Patient Data Age: 28 Gender: F Height: 1.68 m Weight: 92.2 kg Last Vital Signs Temp 36.5 C 10/28/24 05:58 Pulse 79 10/28/24 05:58 Resp 20 10/28/24 05:58 BP 119/82 10/28/24 05:58 Pulse Ox 97 10/28/24 05:58 O2 Del Method Room Air 10/27/24 20:00 Allergies Allergy/AdvReac Type Severity Reaction Status Date / Time nickel Allergy Mild Rash Verified 10/28/24 08:48 Home Medications ?Medication ?Instructions ?Recorded ?Confirmed ?Type fluoxetine 20 mg capsule 20 mg PO DAILY 02/28/22 10/26/24 History sennosides 8.6 mg tablet (senna) 8.6 mg PO HS 02/28/22 10/26/24 History oxycodone-acetaminophen 5 mg-325 1 - 2 tablet PO Q6H PRN pain #30 06/03/24 10/26/24 Rx mg tablet (Percocet) tabs Laboratory Tests 10/28/24 05:41 WBC 11.5 H K/mm3 (4.5-10.0) RBC 4.34 M/mm3 (4.2-5.4) Hgb 13.0 g/dL (12.0-15.0) Hct 40.5 % (37.0-47.0) MCV 93.3 fl (80-100) MCH 30.0 pg (26-34) MCHC 32.1 g/dl (32-36) RDW 13.7 % (11.5-14.5) Plt Count 252 k/mm3 (150-375) MPV 9.7 fl (7.4-10.4) Immature Gran % (Auto) 0.3 % (0-0.5) Neut % (Auto) 70.4 % (45.5-73.1) Lymph % (Auto) 18.1 L % (18.3-44.2) Bea[place]gard % (Auto) 10.1 H % (2.6-8.5) Eos % (Auto) 0.7 % (0-4.4) Baso % (Auto) 0.4 % (0.2-1.2) Lymph # (Auto) 2.09 K/mm3 (0.9-3.2) Bea[place]gard # (Auto) 1.2 H K/mm3 (0.1-0.6) Eos # (Auto) 0.1 K/mm3 (0-0.3) Baso # (Auto) 0.1 K/mm3 (0.0-0.1) Abs Immat Gran (auto) 0.04 H K/mm3 (0.00-0.031) Absolute Neuts (auto) 8.1 H K/mm3 (1.3-6.7) Absolute Nucleated RBC 0.000 K/mm3 (0.0-0.012) Nucleated RBC % 0.0 % (0.0-0.2) Sodium 139 mmol/L (137-145) Potassium 3.8 mmol/L (3.4-5.0) Chloride 107 mmol/L (98-107) Carbon Dioxide 23 mmol/L (22-30) Anion Gap 9 mmol/L (4-12) BUN 7 mg/dL (7-17) Creatinine 0.76 mg/dL (0.7-1.0) Estim Creat Clear Calc 107 ml/min Estimated GFR > 60 (59 - ) Glucose 99 mg/dL (65-110) Calcium 8.8 mg/dL (8.4-10.2) Total Bilirubin 0.3 mg/dL (0.2-1.3) AST 17 U/L (14-36) ALT 13 U/L (6-35) Alkaline Phosphatase 68 U/L (38-126) Total Protein 6.8 g/dL (6.3-8.2) Albumin 3.7 g/dL (3.5-5.1) Patient hx anesthesia problems: none Family hx anesthesia problems: none Results Review: All pre-operative results and documents have been reviewed as part of the pre- operative evaluation. [facility] Past Medical History Medical History Depression Anxiety Asthma Migraine Surgical History Surgical History Hx of hand surgery 04/2020 No significant past surgical history Family History Family History (Updated 10/26/24 @ 17:48 by Kailey Traylor RN) Father Diabetes mellitus Hypercholesteremia Grandparent Hypertension Asthma COPD (chronic obstructive pulmonary disease) Mother Hypertension Hypercholesteremia Social History Social History Smoking packs per day: 0.5 Smoking cigarettes per day: 10.0 Years smoked: 10 Smoking pack-years: 5.00 Smoking status: Current every day smoker Tobacco type: cigarettes Additional smoking assessment comments: 1/2ppd cigarettes x 10 years Alcohol intake: never Alcohol use details: Rarely Substance use: never Do You Feel Safe in your Home?: Yes Lack of Transportation: No Lack of Food: Never True Current Housing: I Have Housing Concerned About Future Housing: No Difficulty Paying Gas/Electric Bills: No Difficulty Paying for Meds: No Currently Unemployed: No Education: Don't Know Difficulty w/ Childcare or Family Care: No Living arrangements: with family Gender identity (if verbalized by the patient): Female Spiritual care concerns: No Anes - Eval Final PreProcedure Day of Procedure 10/28/24 08:43 Patient weight: obese Heart: regular rate and rhythm Lungs: clear to auscultation Airway: Mallampati scale class II Neurological: alert and oriented Last oral intake: >/= 8 hours ASA classification: II Emergent: no Anesthetic plan: proceed Anesthesia type and monitoring: general LMA and standard monitoring Results Review: All pre-operative results and documents have been reviewed as part of the pre- operative evaluation. Informed Consent: The patient's anesthetic plan and its attendant risks and benefits were discussed with the patient/family/POA. Questions were solicited and answers provided to the satisfaction of the patient/family/POA.
--- NOTE | 2024-10-28 09:49 | WPDHPUPDATE1 ---
History and Physical Update Update Date/Time: 10/28/24 09:49 History and Physical has been reviewed, including an updated exam of the patient. There are NO changes in the patient's condition. Risks, benefits, and alternatives have been discussed and questions answered. Patient agrees to proceed with procedure.
[2024-10-28] MEDS: BUPIVACAINE/EPINEPHRINE 0.5% 10 ML VIAL 30 ML INFILTRATE (10:33)
[2024-10-28] MEDS: LACTATED RINGERS 1,000 ML 30 ML IV CONT (10:45)
--- NOTE | 2024-10-28 10:48 | W.PM.PROC2 ---
Procedure Note - Detailed Date of Procedure 10/28/24 Pre-op Diagnosis Left breast abscess Post-op Diagnosis Same ( complex left breast abscess) Procedure Performed incision and drainage of complex left breast abscess Surgeon Steve Lofton DO [employer] Bethanie Sandoval PA-C Anesthesia General and Local ( 0.5% bupivacaine with epinephrine) Indications left breast abscess and cellulitis Findings complex left subareolar breast abscess. Abscess tracked slightly medially but was mostly centered on the subareolar region. Multiple loculations were broken up and abscess was completely drained. It was then irrigated and packed with half-inch iodoform gauze. Bethanie Sandoval PA-C assisted with the entire procedure. Description of Procedure Procedure as well as risks, benefits, and alternatives were discussed with the patient. Written consent was obtained and placed in chart prior to procedure. Patient was brought back to surgical suite. She was placed supine on operating table. Time-out was done to confirm patient and procedure. She was then intubated by anesthesia department. Her left breast area was prepped and draped in sterile fashion using chlorhexidine prep. 0.5% bupivacaine with epinephrine was infiltrated locally around the medial periareolar region. A 4 cm curvilinear incision was made along the inferior medial margin the areola using a 15 blade scalpel. Dissection was carried down to the subcutaneous and periareolar tissue using the 15 blade scalpel until I entered into the abscess cavity. About 3-4 oz of purulence fluid was drained once I entered into the abscess cavity. A hemostat was used to carefully bluntly open up the abscess cavity completely. All of the purulent fluid was then suctioned from within the cavity. I then used finger dissection to break up any loculations within the abscess cavity. Hemostasis was then achieved with electrocautery. I then irrigated the abscess cavity with sterile saline. No further loculations were identified. The abscess cavity was then packed with half-inch iodoform gauze. Fluff gauze, ABD pad, and Medipore tape were then applied. Patient was then awakened from anesthesia, extubated, and transferred to recovery. Estimated Blood Loss 10 Packing Yes (1/2 iodoform gauze) Complications No immediate complications Condition Stable Disposition Floor [facility] Billing Surgery - Charge Forward: Surgery Billing
--- NOTE | 2024-10-28 12:30 | PC.NURSE ---
Placed ordered supplies at bedside per Kirsty's instructions
[2024-10-28] MEDS: oxyCODONE/ACETAMINOPHEN (*CRX) 5-325 MG TABLET 1 TABLET PO (13:15)
[2024-10-28] MEDS: SENNOSIDES 8.6 MG TABLET PO (20:32)
[2024-10-28] MEDS: ONDANSETRON INJ 4 MG/2 ML VIAL IV PUSH (22:59)
[2024-10-29 06:00] VITALS: BP 104/71; PULSE 80; RESP 20; TEMP 36.4; O2SAT 98
[2024-10-29 06:18] LABS: Basophils Percent Auto 0.3 % (0.2-1.2); Eosinophils Percent Auto 0.1 % (0-4.4); Hematocrit 42.2 % (37.0-47.0); Hemoglobin 13.7 g/dL (12.0-15.0); Immature Granulocyte Absolute 0.06 K/mm3 (0.00-0.031); Immature Granulocyte Percent A 0.4 % (0-0.5); Lymphocytes Absolute Auto 2.14 K/mm3 (0.9-3.2); Lymphocytes Percent Auto 15.4 % (18.3-44.2); Mean Corpuscular HGB Conc 32.5 g/dl (32-36); Mean Corpuscular Hemoglobin 30.1 pg (26-34); Mean Corpuscular Volume 92.7 fl (80-100); Mean Platelet Volume 9.6 fl (7.4-10.4); Monocytes Percent Auto 7.5 % (2.6-8.5); Neutrophils Absolute Auto 10.6 K/mm3 (1.3-6.7); Neutrophils Percent Auto 76.3 % (45.5-73.1); Platelet Count Result 286 k/mm3 (150-375); Red Blood Count 4.55 M/mm3 (4.2-5.4); Red Cell Distribution Width 13.6 % (11.5-14.5); White Blood Count 13.9 K/mm3 (4.5-10.0)
[2024-10-29 06:27] LABS: Alanine Aminotransferase 15 U/L (6-35); Albumin Level 3.9 g/dL (3.5-5.1); Alkaline Phosphatase 75 U/L (38-126); Anion Gap 8 mmol/L (4-12); Aspartate Amino Transferase 20 U/L (14-36); Bilirubin,Total 0.3 mg/dL (0.2-1.3); Blood Urea Nitrogen 8 mg/dL (7-17); Calcium 9.1 mg/dL (8.4-10.2); Carbon Dioxide 25 mmol/L (22-30); Chloride 107 mmol/L (98-107); Estimated CRCL calculation 99 ml/min; Estimated Glomerular Filt Rate > 60; Glucose 112 mg/dL (65-110); Potassium 4.1 mmol/L (3.4-5.0); Sodium 140 mmol/L (137-145); Total Protein 7.2 g/dL (6.3-8.2)
--- NOTE | 2024-10-29 07:15 | P.PNIM_ITS ---
Progress Note: A&P Assessment and Plan (1) Left breast abscess: Code(s): N61.1 - Abscess of the breast and nipple Status: Acute Assessment and Plan: * infection v malignancy, infection likely * US breast, left: Scattered areas of fluid throughout the left breast with increased vascularity at some locations. Considerations include infection although other etiologies such as inflammatory breast carcinoma are not excluded. * initially on Keflex PO, transitioned to Vancomycin IVPB * WBC increased to 12.4, redness is worsening on Vanco * Stop vanco, started Fluconazole and Linzeloid * MRI breast: Complex multiloculated fluid with surrounding diffuse interstitial thickening/fluid throughout the left breast. * planned outpatient mammogram on , 10/29 * antipyretics and analgesics p.r.n. * trend labs daily * Gen surg consulted for I&D of L Breast abscess * POD 1 I&D * Tolerated procedure well * Gen surg to continue following for wound care * Dressing changed and wound repacked * Continue oral abx (2) Cellulitis of left breast: Code(s): N61.0 - Mastitis without abscess Status: Acute Assessment and Plan: * See above (3) Smoker: Code(s): F17.200 - Nicotine dependence, unspecified, uncomplicated Status: Acute Assessment and Plan: * Nicotine cessation counseling Plan Diet: Regular GI Prophylaxis: Not currently indicated DVT Prophylaxis: SCDs Lines/Tubes: Peripheral IV Code Status: Full code Discharge plan: home when stable. Subjective Date/time seen: 10/29/24 07:15 Interval history: 28 y/o F with PMH of depression, anxiety, asthma, and migraines presents here with a breast lump. 10/29/2024 Patient standing comfortably at bedside at time of examination. Seen by general surgery this morning regarding abscess drainage management Packing has been removed, no signs of fluctuance, purulence, or necrosis. Erythema/Swelling decreased. Repacked. Preliminary wound culture negative for growth. WBC increased from 11.5 to 13.9. Continue oral abx and monitoring of abscess. No other comments or concerns at this time. Review of Systems Review of Systems: All systems reviewed & are unremarkable except as noted in HPI and below Exam Const: General: comfortable, no acute distress, tired appearing and uncomfortable Other: , female, nontoxic appearance HENMT: Head: normal to inspection and normocephalic Face/Nose/Sinus: Normal nares present Mouth: Yes moist mucous membranes Eyes: General: appearance normal, both eyes and all related structures Sclera: sclerae normal Pupils: Equal, round and reactive pupils present EOM: EOMs intact bilaterally Neck: Neck: full ROM and no lymphadenopathy Chest: Other: Significant erythema and tenderness to the left breast. Indurated beneath left nipple extending towards 8 o'clock extending to 12 o'clock position then extending to the chest wall. Approximately 8 x 8 cm. Tender to palpation. very warm to touch. Resp: Effort & Inspection: normal respiratory effort Auscultation: clear to auscultation bilaterally Cardio: Rate: regular rate Rhythm: regular rhythm Other: S1-S2 present without murmur, rub, ectopy GI: Other: Abdomen soft, nondistended, nontender. Normoactive bowel sounds in all quadra nts. Skin: General skin exam: no rashes or lesions noted Other: See chest exam. Neuro: Cranial nerves: Yes Equal, round and reactive pupils present Speech: normal speech Motor exam (neuro): 5/5 motor strength present throughout Sensory Exam: normal sensation Other: A&O x4 Extrem: General: normal to inspection Psych: Mental Status: mental status grossly normal Affect: normal affect Other: Good insight and judgment, very pleasant Objective Data Vital Signs Vital Signs: Vital Signs - 24 hr 10/28/24 08:40 10/28/24 10:45 10/28/24 11:00 Temperature 98.5 F 98.7 F Pulse Rate 88 80 94 Respiratory Rate 16 18 14 Blood Pressure 122/82 106/72 118/83 Pulse Oximetry 100 96 99 Oxygen Delivery Simple Face Mask Simple Face Mask Oxygen Flow Rate 8 10/28/24 11:15 10/28/24 11:30 10/28/24 11:45 Temperature Pulse Rate 78 81 92 Respiratory Rate 16 14 18 Blood Pressure 121/87 118/86 122/87 Pulse Oximetry 100 95 93 Oxygen Delivery Simple Face Mask Room Air Room Air Oxygen Flow Rate 8 10/28/24 12:00 10/28/24 12:18 10/28/24 12:33 Temperature 96.7 F L 96.6 F L Pulse Rate 78 84 74 Respiratory Rate 18 20 18 Blood Pressure 120/80 130/84 146/78 H Pulse Oximetry 97 97 97 Oxygen Delivery Room Air Oxygen Flow Rate 10/28/24 13:03 10/28/24 14:00 10/28/24 14:03 Temperature 97.1 F L 96.6 F L 96.6 F L Pulse Rate 72 98 98 Respiratory Rate 18 18 18 Blood Pressure 146/91 H 124/87 124/87 Pulse Oximetry 91 98 98 Oxygen Delivery Oxygen Flow Rate 10/28/24 18:03 10/28/24 20:28 10/28/24 20:46 Temperature 96.0 F L Pulse Rate 50 L Respiratory Rate 18 Blood Pressure 127/79 Pulse Oximetry 100 99 Oxygen Delivery Room Air Room Air Oxygen Flow Rate 10/28/24 21:13 10/29/24 06:00 Temperature 98.2 F 97.6 F Pulse Rate 88 80 Respiratory Rate 20 20 Blood Pressure 130/86 104/71 Pulse Oximetry 99 98 Oxygen Delivery Oxygen Flow Rate Intake/Output Intake/Output: Intake & Output 10/26/24 10/27/24 10/28/24 10/29/24 23:59 23:59 23:59 23:59 Intake Total 1760 640 300 Balance 1760 640 300 Meds/Results Medications: Active Medications Generic Name Dose Route Start Last Admin Trade Name Freq PRN Reason Stop Dose Admin Acetaminophen 650 mg 10/26/24 14:44 10/27/24 20:00 Acetaminophen 325 Mg Tablet PO 650 mg Q4H PRN Administration Mild Pain (1-3) or Fever Dextrose 12.5 gm 10/26/24 14:44 Dextrose 50% 25 Gm/50 Ml Syringe IV PUSH PRN PRN Hypoglycemia Protocol Diphenhydramine HCl 25 mg 10/28/24 12:18 Diphenhydramine Hcl Inj 50 Mg/Ml Vial IV PUSH Q6H PRN Itching Fluconazole 400 mg 10/28/24 09:00 10/28/24 07:59 Fluconazole 100 Mg Tablet PO 400 mg QAM VENKAT Administration Fluoxetine HCl 20 mg 10/27/24 09:00 10/28/24 07:59 Fluoxetine Hcl 20 Mg Capsule PO 20 mg DAILY VENKAT Administration Glucagon 1 mg 10/26/24 14:44 Glucagon For Inj 1 Mg Vial IM PRN PRN Hypoglycemia Protocol Glucose 15 gm 10/26/24 14:44 Glucose Oral Gel 15 Gm Of Glucse In 37.5 Gm Tube PO PRN PRN Hypoglycemia Protocol Dextrose 1,000 mls @ 100 mls/hr 10/26/24 14:44 Dextrose 5% 1,000 Ml IVPB PRN PRN Hypoglycemia Protocol Ibuprofen 800 mg in 200 mls @ 400 mls/hr 10/28/24 12:18 Caldolor 800 Mg/200 Ml IVPB Q6H PRN Breakthrough Pain Rated 1-3 or NPO Linezolid 600 mg 10/27/24 11:30 10/28/24 20:32 Linezolid 600 Mg Tablet PO 600 mg Q12HR VENKAT Administration Morphine Sulfate 2 mg 10/28/24 12:18 Morphine Sulfate (*Crx) 2 Mg/Ml Inj IV PUSH Q2H PRN Breakthrough Pain Rated 4-6 or NPO Morphine Sulfate 4 mg 10/28/24 12:18 Morphine Sulfate (*Crx) 4 Mg/Ml Inj IV PUSH Q2H PRN Breakthrough Pain Rated 7-10 or NPO Naloxone HCl 0.1 mg 10/28/24 12:18 Naloxone Hcl 0.4 Mg/Ml Vial IV PUSH Q2M PRN Opiate Reversal Ondansetron HCl 4 mg 10/26/24 14:44 10/28/24 22:59 Ondansetron Inj 4 Mg/2 Ml Vial IV PUSH 4 mg Q4H PRN Administration Nausea Oxycodone/Acetaminophen 1 tablet 10/28/24 12:18 10/28/24 13:15 Oxycodone/Acetaminophen (*Crx) 5-325 Mg Tablet PO 1 tablet Q4H PRN Administration Pain Rated 4-6 Oxycodone/Acetaminophen 1 tab 10/28/24 12:18 Oxycodone/Acetaminophen (*Crx) 10-325 Mg Tablet PO Q6H PRN Pain Rated 7-10 Senna 8.6 mg 10/27/24 21:00 10/28/24 20:32 Sennosides 8.6 Mg Tablet PO 8.6 mg HS VENKAT Administration Radiology Results: ITS Impressions Breast Ultrasound 10/26/24 13:27 Impression: 1: Scattered areas of fluid throughout the left breast with increased vascularity at some locations. Considerations include infection although other etiologies such as inflammatory breast carcinoma are not excluded. Recommendation: Recommend correlation with diagnostic bilateral mammogram. BI-RADS CATEGORY 0 - INCOMPLETE STUDY, NEED ADDITIONAL IMAGING EVALUATION. Breast MRI 10/27/24 12:35 IMPRESSION: 1: Right breast: Negative. No evidence of malignancy. BI-RADS category 1. Recommend annual mammography follow-up. 2: Left breast: Complex multiloculated fluid with surrounding diffuse interstitial thickening/fluid throughout the left breast. The fluid measures approximately 5.2 x 5 x 3.5 cm in conglomeration with peripheral enhancement. Multiple abnormal enlarged lymph nodes are present which have a pathologic appearance. There is associated increased vascularity with skin thickening. Although this is most likely infectious/inflammatory process with abscess formation, inflammatory breast carcinoma could have a similar appearance with areas of necrosis and hypervascularity. Recommend further evaluation with aspiration of fluid for infectious/inflammatory etiologies followed by core biopsy of the associated surrounding tissue to exclude underlying malignancy. BI-RADS Category 4. Labs Labs: Laboratory Results - last 24 hr 10/29/24 05:59 WBC 13.9 H RBC 4.55 Hgb 13.7 Hct 42.2 MCV 92.7 MCH 30.1 MCHC 32.5 RDW 13.6 Plt Count 286 MPV 9.6 Immature Gran % (Auto) 0.4 Neut % (Auto) 76.3 H Lymph % (Auto) 15.4 L [place] % (Auto) 7.5 Eos % (Auto) 0.1 Baso % (Auto) 0.3 Lymph # (Auto) 2.14 [place] # (Auto) 1.0 H Eos # (Auto) 0.0 Baso # (Auto) 0.0 Abs Immat Gran (auto) 0.06 H Absolute Neuts (auto) 10.6 H Absolute Nucleated RBC 0.000 Nucleated RBC % 0.0 Sodium 140 Potassium 4.1 Chloride 107 Carbon Dioxide 25 Anion Gap 8 BUN 8 Creatinine 0.83 Estim Creat Clear Calc 99 Estimated GFR > 60 Glucose 112 H Calcium 9.1 Total Bilirubin 0.3 AST 20 ALT 15 Alkaline Phosphatase 75 Total Protein 7.2 Albumin 3.9 Quality VTE Prophylaxis VTE prophylaxis: mechanical ordered
[2024-10-29] MEDS: MORPHINE SULFATE (*CRX) 2 MG/ML INJ IV PUSH (08:54)
[2024-10-29] MEDS: oxyCODONE/ACETAMINOPHEN (*CRX) 5-325 MG TABLET 1 TABLET PO (08:55)
[2024-10-29] MEDS: LINEZOLID 600 MG TABLET PO ×2 (09:37→20:56)
[2024-10-29] MEDS: FLUoxetine HCL 20 MG CAPSULE PO (09:37)
[2024-10-29] MEDS: FLUCONAZOLE 100 MG TABLET 400 MG PO (09:37)
[2024-10-29 10:03] VITALS: BP 139/95; PULSE 103; RESP 18; TEMP 36.9; O2SAT 100
--- NOTE | 2024-10-29 10:12 | P.PNGS_ITS ---
Progress Note: A&P Assessment and Plan (1) Left breast abscess: Code(s): N61.1 - Abscess of the breast and nipple Status: Acute Assessment and Plan: Patient stable. Left breast incision draining serosanguineous fluid as expected. Packing removed with no purulence, fluctuance, or other signs of tissue necrosis to cavity. Redness and swelling decreased. Repacked upon visit today. WBC 13.9. Plan to continue oral antibiotics. Cultures still pending. Continue to monitor. Subjective Subjective Date/Time Seen: 10/29/24 10:12 Interval history: POD1 after complex left breast abscess incision and drainage. Patient is doing well today with no acute events overnight. Afebrile. WBC 13.9. Packing and dressing changed today. Patient tolerated well. Exam Chest: Breast/axilla inspection: abnormal inspection of the breast left erythema and other Other: Left breast incision draining well with serosanguineous fluid on bandage. Packing removed. Cavity tracks roughly 4.5 cm laterally. Viable pink tissue with no purulent drainage, fluctuance, or signs of necrosis. Surrounding erythema and edema decreased. Objective Data Vital Signs Vital Signs: Vital Signs - 24 hr 10/28/24 10:45 10/28/24 11:00 10/28/24 11:15 Temperature 98.7 F Pulse Rate 80 94 78 Respiratory Rate 18 14 16 Blood Pressure 106/72 118/83 121/87 Pulse Oximetry 96 99 100 Oxygen Delivery Simple Face Mask Simple Face Mask Simple Face Mask Oxygen Flow Rate 8 8 8 10/28/24 11:30 10/28/24 11:45 10/28/24 12:00 Temperature Pulse Rate 81 92 78 Respiratory Rate 14 18 18 Blood Pressure 118/86 122/87 120/80 Pulse Oximetry 95 93 97 Oxygen Delivery Room Air Room Air Room Air Oxygen Flow Rate 10/28/24 12:18 10/28/24 12:33 10/28/24 13:03 Temperature 96.7 F L 96.6 F L 97.1 F L Pulse Rate 84 74 72 Respiratory Rate 20 18 18 Blood Pressure 130/84 146/78 H 146/91 H Pulse Oximetry 97 97 91 Oxygen Delivery Oxygen Flow Rate 10/28/24 14:00 10/28/24 14:03 10/28/24 18:03 Temperature 96.6 F L 96.6 F L 96.0 F L Pulse Rate 98 98 50 L Respiratory Rate 18 18 18 Blood Pressure 124/87 124/87 127/79 Pulse Oximetry 98 98 100 Oxygen Delivery Oxygen Flow Rate 10/28/24 20:28 10/28/24 20:46 10/28/24 21:13 Temperature 98.2 F Pulse Rate 88 Respiratory Rate 20 Blood Pressure 130/86 Pulse Oximetry 99 99 Oxygen Delivery Room Air Room Air Oxygen Flow Rate 10/29/24 06:00 10/29/24 08:00 Temperature 97.6 F Pulse Rate 80 Respiratory Rate 20 Blood Pressure 104/71 Pulse Oximetry 98 Oxygen Delivery Room Air Oxygen Flow Rate Intake/Output Intake/Output: Intake & Output 10/26/24 10/27/24 10/28/24 10/29/24 23:59 23:59 23:59 23:59 Intake Total 1760 640 500 Balance 1760 640 500 Meds/Results Medications: Active Medications Generic Name Dose Route Start Last Admin Trade Name Freq PRN Reason Stop Dose Admin Acetaminophen 650 mg 10/26/24 14:44 10/27/24 20:00 Acetaminophen 325 Mg Tablet PO 650 mg Q4H PRN Administration Mild Pain (1-3) or Fever Dextrose 12.5 gm 10/26/24 14:44 Dextrose 50% 25 Gm/50 Ml Syringe IV PUSH PRN PRN Hypoglycemia Protocol Diphenhydramine HCl 25 mg 10/28/24 12:18 Diphenhydramine Hcl Inj 50 Mg/Ml Vial IV PUSH Q6H PRN Itching Fluconazole 400 mg 10/28/24 09:00 10/29/24 09:37 Fluconazole 100 Mg Tablet PO 400 mg QAM VENKAT Administration Fluoxetine HCl 20 mg 10/27/24 09:00 10/29/24 09:37 Fluoxetine Hcl 20 Mg Capsule PO 20 mg DAILY VENKAT Administration Glucagon 1 mg 10/26/24 14:44 Glucagon For Inj 1 Mg Vial IM PRN PRN Hypoglycemia Protocol Glucose 15 gm 10/26/24 14:44 Glucose Oral Gel 15 Gm Of Glucse In 37.5 Gm Tube PO PRN PRN Hypoglycemia Protocol Dextrose 1,000 mls @ 100 mls/hr 10/26/24 14:44 Dextrose 5% 1,000 Ml IVPB PRN PRN Hypoglycemia Protocol Ibuprofen 800 mg in 200 mls @ 400 mls/hr 10/28/24 12:18 Caldolor 800 Mg/200 Ml IVPB Q6H PRN Breakthrough Pain Rated 1-3 or NPO Linezolid 600 mg 10/27/24 11:30 10/29/24 09:37 Linezolid 600 Mg Tablet PO 600 mg Q12HR VENKAT Administration Morphine Sulfate 2 mg 10/28/24 12:18 10/29/24 08:54 Morphine Sulfate (*Crx) 2 Mg/Ml Inj IV PUSH 2 mg Q2H PRN Administration Breakthrough Pain Rated 4-6 or NPO Morphine Sulfate 4 mg 10/28/24 12:18 Morphine Sulfate (*Crx) 4 Mg/Ml Inj IV PUSH Q2H PRN Breakthrough Pain Rated 7-10 or NPO Naloxone HCl 0.1 mg 10/28/24 12:18 Naloxone Hcl 0.4 Mg/Ml Vial IV PUSH Q2M PRN Opiate Reversal Ondansetron HCl 4 mg 10/26/24 14:44 10/28/24 22:59 Ondansetron Inj 4 Mg/2 Ml Vial IV PUSH 4 mg Q4H PRN Administration Nausea Oxycodone/Acetaminophen 1 tablet 10/28/24 12:18 10/29/24 08:55 Oxycodone/Acetaminophen (*Crx) 5-325 Mg Tablet PO 1 tablet Q4H PRN Administration Pain Rated 4-6 Oxycodone/Acetaminophen 1 tab 10/28/24 12:18 Oxycodone/Acetaminophen (*Crx) 10-325 Mg Tablet PO Q6H PRN Pain Rated 7-10 Senna 8.6 mg 10/27/24 21:00 10/28/24 20:32 Sennosides 8.6 Mg Tablet PO 8.6 mg HS VENKAT Administration Radiology Results: ITS Impressions Breast Ultrasound 10/26/24 13:27 Impression: 1: Scattered areas of fluid throughout the left breast with increased vascularity at some locations. Considerations include infection although other etiologies such as inflammatory breast carcinoma are not excluded. Recommendation: Recommend correlation with diagnostic bilateral mammogram. BI-RADS CATEGORY 0 - INCOMPLETE STUDY, NEED ADDITIONAL IMAGING EVALUATION. Breast MRI 10/27/24 12:35 IMPRESSION: 1: Right breast: Negative. No evidence of malignancy. BI-RADS category 1. Recommend annual mammography follow-up. 2: Left breast: Complex multiloculated fluid with surrounding diffuse interstitial thickening/fluid throughout the left breast. The fluid measures approximately 5.2 x 5 x 3.5 cm in conglomeration with peripheral enhancement. Multiple abnormal enlarged lymph nodes are present which have a pathologic appearance. There is associated increased vascularity with skin thickening. Although this is most likely infectious/inflammatory process with abscess formation, inflammatory breast carcinoma could have a similar appearance with areas of necrosis and hypervascularity. Recommend further evaluation with aspiration of fluid for infectious/inflammatory etiologies followed by core biopsy of the associated surrounding tissue to exclude underlying malignancy. BI-RADS Category 4. Labs Labs: Laboratory Results - last 24 hr 10/29/24 05:59 WBC 13.9 H RBC 4.55 Hgb 13.7 Hct 42.2 MCV 92.7 MCH 30.1 MCHC 32.5 RDW 13.6 Plt Count 286 MPV 9.6 Immature Gran % (Auto) 0.4 Neut % (Auto) 76.3 H Lymph % (Auto) 15.4 L [place] % (Auto) 7.5 Eos % (Auto) 0.1 Baso % (Auto) 0.3 Lymph # (Auto) 2.14 [place] # (Auto) 1.0 H Eos # (Auto) 0.0 Baso # (Auto) 0.0 Abs Immat Gran (auto) 0.06 H Absolute Neuts (auto) 10.6 H Absolute Nucleated RBC 0.000 Nucleated RBC % 0.0 Sodium 140 Potassium 4.1 Chloride 107 Carbon Dioxide 25 Anion Gap 8 BUN 8 Creatinine 0.83 Estim Creat Clear Calc 99 Estimated GFR > 60 Glucose 112 H Calcium 9.1 Total Bilirubin 0.3 AST 20 ALT 15 Alkaline Phosphatase 75 Total Protein 7.2 Albumin 3.9
[2024-10-29 14:02] VITALS: BP 117/78; PULSE 75; RESP 18; TEMP 35.9; O2SAT 99
[2024-10-29] MEDS: ACETAMINOPHEN 325 MG TABLET 650 MG PO (18:49)
[2024-10-29 19:55] VITALS: PULSE 75; RESP 18; O2SAT 99
[2024-10-29] MEDS: SENNOSIDES 8.6 MG TABLET PO (20:58)
[2024-10-29 21:23] VITALS: BP 113/81; PULSE 72; RESP 16; TEMP 36.8; O2SAT 99
[2024-10-30 06:47] LABS: Basophils Absolute Auto 0.1 K/mm3 (0.0-0.1); Basophils Percent Auto 0.9 % (0.2-1.2); Eosinophils Absolute Auto 0.1 K/mm3 (0-0.3); Hematocrit 41.1 % (37.0-47.0); Hemoglobin 13.1 g/dL (12.0-15.0); Immature Granulocyte Absolute 0.02 K/mm3 (0.00-0.031); Immature Granulocyte Percent A 0.2 % (0-0.5); Lymphocytes Absolute Auto 4.35 K/mm3 (0.9-3.2); Lymphocytes Percent Auto 48.5 % (18.3-44.2); Mean Corpuscular HGB Conc 31.9 g/dl (32-36); Mean Corpuscular Hemoglobin 29.8 pg (26-34); Mean Corpuscular Volume 93.6 fl (80-100); Mean Platelet Volume 9.6 fl (7.4-10.4); Monocytes Absolute Auto 0.7 K/mm3 (0.1-0.6); Monocytes Percent Auto 8.3 % (2.6-8.5); Neutrophils Absolute Auto 3.7 K/mm3 (1.3-6.7); Neutrophils Percent Auto 41.1 % (45.5-73.1); Platelet Count Result 297 k/mm3 (150-375); Red Blood Count 4.39 M/mm3 (4.2-5.4); Red Cell Distribution Width 13.5 % (11.5-14.5)
[2024-10-30 07:13] LABS: Alanine Aminotransferase 15 U/L (6-35); Albumin Level 3.7 g/dL (3.5-5.1); Alkaline Phosphatase 59 U/L (38-126); Anion Gap 7 mmol/L (4-12); Aspartate Amino Transferase 22 U/L (14-36); Bilirubin,Total 0.2 mg/dL (0.2-1.3); Blood Urea Nitrogen 12 mg/dL (7-17); Calcium 8.8 mg/dL (8.4-10.2); Carbon Dioxide 26 mmol/L (22-30); Chloride 105 mmol/L (98-107); Estimated CRCL calculation 92 ml/min; Estimated Glomerular Filt Rate > 60; Glucose 87 mg/dL (65-110); Potassium 3.9 mmol/L (3.4-5.0); Sodium 138 mmol/L (137-145); Total Protein 6.6 g/dL (6.3-8.2)
[2024-10-30 07:30] LABS: Atypical Lymphocytes Present; Platelet Estimate Adequate (Adequate); Schistocytes None Seen
[2024-10-30 08:08] VITALS: BP 126/91; PULSE 88; RESP 16; TEMP 36.1; O2SAT 100
[2024-10-30] MEDS: FLUoxetine HCL 20 MG CAPSULE PO (09:20)
[2024-10-30] MEDS: FLUCONAZOLE 100 MG TABLET 400 MG PO (09:20)
[2024-10-30] MEDS: LINEZOLID 600 MG TABLET PO (09:20)
--- NOTE | 2024-10-30 09:22 | P.PNGS_ITS ---
Progress Note: A&P Assessment and Plan (1) Left breast abscess: Code(s): N61.1 - Abscess of the breast and nipple Status: Acute Assessment and Plan: Patient stable. Left breast incision draining serosanguineous fluid as expected. WBC normalized. Packing removed with no purulence, fluctuance, or other signs of tissue necrosis to cavity. Redness and swelling decreased from yesterday. OK for discharge from surgical standpoint. Plan to continue oral antibiotics - consider switching from Linezolid as cultures are preliminary for only skin maximilian thus far. Wound was not repacked today and patient will not need to repack the wound upon discharge. F/u with Dr. Lofton in office. Plan Discussed patient's case and plan of care with Dr. Lofton. Subjective Subjective Date/Time Seen: 10/30/24 09:22 Interval history: Patient is doing well today. No acute events overnight. WBC normalized to 9.0. Afebrile. Left breast incision with decreased redness and swelling. Decreased drainage on dressing. Exam Chest: Breast/axilla inspection: abnormal inspection of the breast left erythema and other Other: Left breast incision draining well with serosanguineous fluid on bandage. Packing removed. Cavity tracks roughly 4.25 cm laterally. Viable pink tissue with no purulent drainage, fluctuance, or signs of necrosis. Surrounding erythema and edema decreased from yesterday. Objective Data Vital Signs Vital Signs: Vital Signs - 24 hr 10/29/24 10:03 10/29/24 14:02 10/29/24 19:55 Temperature 98.4 F 96.7 F L Pulse Rate 103 H 75 75 Respiratory Rate 18 18 18 Blood Pressure 139/95 H 117/78 Pulse Oximetry 100 99 99 Oxygen Delivery Room Air 10/29/24 21:23 10/30/24 08:08 Temperature 98.2 F 96.9 F L Pulse Rate 72 88 Respiratory Rate 16 16 Blood Pressure 113/81 126/91 H Pulse Oximetry 99 100 Oxygen Delivery Intake/Output Intake/Output: Intake & Output 10/27/24 10/28/24 10/29/24 10/30/24 23:59 23:59 23:59 23:59 Intake Total 1760 640 850 200 Output Total 200 Balance 1760 640 850 0 Meds/Results Medications: Active Medications Generic Name Dose Route Start Last Admin Trade Name Freq PRN Reason Stop Dose Admin Acetaminophen 650 mg 10/26/24 14:44 10/29/24 18:49 Acetaminophen 325 Mg Tablet PO 650 mg Q4H PRN Administration Mild Pain (1-3) or Fever Dextrose 12.5 gm 10/26/24 14:44 Dextrose 50% 25 Gm/50 Ml Syringe IV PUSH PRN PRN Hypoglycemia Protocol Diphenhydramine HCl 25 mg 10/28/24 12:18 Diphenhydramine Hcl Inj 50 Mg/Ml Vial IV PUSH Q6H PRN Itching Fluconazole 400 mg 10/28/24 09:00 10/30/24 09:20 Fluconazole 100 Mg Tablet PO 400 mg QAM VENKAT Administration Fluoxetine HCl 20 mg 10/27/24 09:00 10/30/24 09:20 Fluoxetine Hcl 20 Mg Capsule PO 20 mg DAILY VENKAT Administration Glucagon 1 mg 10/26/24 14:44 Glucagon For Inj 1 Mg Vial IM PRN PRN Hypoglycemia Protocol Glucose 15 gm 10/26/24 14:44 Glucose Oral Gel 15 Gm Of Glucse In 37.5 Gm Tube PO PRN PRN Hypoglycemia Protocol Dextrose 1,000 mls @ 100 mls/hr 10/26/24 14:44 Dextrose 5% 1,000 Ml IVPB PRN PRN Hypoglycemia Protocol Ibuprofen 800 mg in 200 mls @ 400 mls/hr 10/28/24 12:18 Caldolor 800 Mg/200 Ml IVPB Q6H PRN Breakthrough Pain Rated 1-3 or NPO Linezolid 600 mg 10/27/24 11:30 10/30/24 09:20 Linezolid 600 Mg Tablet PO 600 mg Q12HR VENKAT Administration Morphine Sulfate 2 mg 10/28/24 12:18 10/29/24 08:54 Morphine Sulfate (*Crx) 2 Mg/Ml Inj IV PUSH 2 mg Q2H PRN Administration Breakthrough Pain Rated 4-6 or NPO Morphine Sulfate 4 mg 10/28/24 12:18 Morphine Sulfate (*Crx) 4 Mg/Ml Inj IV PUSH Q2H PRN Breakthrough Pain Rated 7-10 or NPO Naloxone HCl 0.1 mg 10/28/24 12:18 Naloxone Hcl 0.4 Mg/Ml Vial IV PUSH Q2M PRN Opiate Reversal Ondansetron HCl 4 mg 10/26/24 14:44 10/28/24 22:59 Ondansetron Inj 4 Mg/2 Ml Vial IV PUSH 4 mg Q4H PRN Administration Nausea Oxycodone/Acetaminophen 1 tablet 10/28/24 12:18 10/29/24 08:55 Oxycodone/Acetaminophen (*Crx) 5-325 Mg Tablet PO 1 tablet Q4H PRN Administration Pain Rated 4-6 Oxycodone/Acetaminophen 1 tab 10/28/24 12:18 Oxycodone/Acetaminophen (*Crx) 10-325 Mg Tablet PO Q6H PRN Pain Rated 7-10 Senna 8.6 mg 10/27/24 21:00 10/29/24 20:58 Sennosides 8.6 Mg Tablet PO 8.6 mg HS VENKAT Administration Radiology Results: ITS Impressions Breast Ultrasound 10/26/24 13:27 Impression: 1: Scattered areas of fluid throughout the left breast with increased vascu larity at some locations. Considerations include infection although other etiologies such as inflammatory breast carcinoma are not excluded. Recommendation: Recommend correlation with diagnostic bilateral mammogram. BI-RADS CATEGORY 0 - INCOMPLETE STUDY, NEED ADDITIONAL IMAGING EVALUATION. Breast MRI 10/27/24 12:35 IMPRESSION: 1: Right breast: Negative. No evidence of malignancy. BI-RADS category 1. Recommend annual mammography follow-up. 2: Left breast: Complex multiloculated fluid with surrounding diffuse interstitial thickening/fluid throughout the left breast. The fluid measures approximately 5.2 x 5 x 3.5 cm in conglomeration with peripheral enhancement. Multiple abnormal enlarged lymph nodes are present which have a pathologic appearance. There is associated increased vascularity with skin thickening. Although this is most likely infectious/inflammatory process with abscess formation, inflammatory breast carcinoma could have a similar appearance with areas of necrosis and hypervascularity. Recommend further evaluation with aspira tion of fluid for infectious/inflammatory etiologies followed by core biopsy of the associated surrounding tissue to exclude underlying malignancy. BI-RADS Category 4. Labs Labs: Laboratory Results - last 24 hr 10/30/24 06:18 WBC 9.0 RBC 4.39 Hgb 13.1 Hct 41.1 MCV 93.6 MCH 29.8 MCHC 31.9 L RDW 13.5 Plt Count 297 MPV 9.6 Immature Gran % (Auto) 0.2 Neut % (Auto) 41.1 L Lymph % (Auto) 48.5 H [place] % (Auto) 8.3 Eos % (Auto) 1.0 Baso % (Auto) 0.9 Lymph # (Auto) 4.35 H [place] # (Auto) 0.7 H Eos # (Auto) 0.1 Baso # (Auto) 0.1 Abs Immat Gran (auto) 0.02 Absolute Neuts (auto) 3.7 Absolute Nucleated RBC 0.000 Band Neutrophils % Not Reportable Nucleated RBC % 0.0 Atypical Lymphocytes Present Platelet Estimate Adequate Schistocytes None seen Sodium 138 Potassium 3.9 Chloride 105 Carbon Dioxide 26 Anion Gap 7 BUN 12 Creatinine 0.90 Estim Creat Clear Calc 92 Estimated GFR > 60 Glucose 87 Calcium 8.8 Total Bilirubin 0.2 AST 22 ALT 15 Alkaline Phosphatase 59 Total Protein 6.6 Albumin 3.7
[2024-10-30] MEDS: ACETAMINOPHEN 325 MG TABLET 650 MG PO (09:35)
--- NOTE | 2024-10-30 10:19 | P.DS_ITS ---
DS: Admitting Diagnosis Discharge Date 10/30/2024 Admitting Diagnosis Breast cellulitis DS: Discharge Diagnosis Discharge Diagnosis (1) Left breast abscess: Code(s): N61.1 - Abscess of the breast and nipple Status: Acute (2) Cellulitis of left breast: Code(s): N61.0 - Mastitis without abscess Status: Acute (3) Smoker: Code(s): F17.200 - Nicotine dependence, unspecified, uncomplicated Status: Acute DS: Summary Hospital Course Reason for hospitalization: Breast Lump Hospital Course: 28 y/o F with PMH of depression, anxiety, asthma, and migraines presents here with a breast lump. The patient presents here with a lump and tenderness to her left breast. She reports onset of a lump and erythema to her left breast approximately 1 week ago. She initially sought care with her OB (Dakota BARCENAS( who placed her on Keflex. She has taken 6 days of the course, had one day of abx left. Despite oral antibiotics, the area became more erythematous, has continued to increase in size, and now has heat to it. She reports new milky discharge from her left nipple that she noted today. She denies accompanying nausea, vomiting, chills, or diarrhea. Had a fever last week - 100.8F. She has been taking Percocet, ibuprofen, and Tylenol with last dose at 8:30 a.m. this morning. She has no previous history of breast cancer, reports no family history of breast cancer. Initial VS at presentation: 97.7? F, HR 87, RR 18, 125/91, and 100% on RA. ED workup showed: WBC 11.9, no anemia, sodium 136, creatinine 0.70 and GFR >60, lactic negative, CRP 7.9. Breast ultrasound showed scattered areas of fluid throughout the left breast with increased vascularity at some locations. Considerations include infection although other etiologies such as inflammatory breast carcinoma are not excluded. General surgery was consulted regarding left breast abscess. Incision and drainage of a complex left breast abscess was performed on 10/28. Patient tolerated this procedure well and abscess cavity was packed with iodoform gauze. General surgery continued to follow patient during hospitalization. Fluid drainage was serosanguineous as expected and packing was removed with no signs of fluctuance, purulence, or other signs of tissue necrosis to the wound cavity. Redness and swelling decreased throughout hospitalization. Oral antibiotics were continued and leukocytosis improved throughout hospital stay. On 10/30, general surgery saw the patient again and packing was again removed in the wound showed no purulence, fluctuance or tissue necrosis to the wound cavity. Wound continued to reduce swelling and redness. General surgery then cleared the patient for discharge from their standpoint. Patient is also amenable to that discharge. She is hemodynamically stable with stable blood work and vital signs. Plan for discharge home with appropriate follow-up in the outpatient setting with General surgery in 3-4 weeks. Status at Discharge Functional status at discharge: independent ambulation Overall status at discharge: patient is back to baseline Time Spent with Patient Time attestation: Total time spent providing and/or coordinating discharge services: 37 Exam Const: General: comfortable, no acute distress, tired appearing and uncomfortable Other: , female, nontoxic appearance HENMT: Head: normal to inspection and normocephalic Face/Nose/Sinus: Normal nares present Mouth: Yes moist mucous membranes Eyes: General: appearance normal, both eyes and all related structures Sclera: sclerae normal Pupils: Equal, round and reactive pupils present EOM: EOMs intact bilaterally Neck: Neck: full ROM and no lymphadenopathy Chest: Other: Left breast incision draining well with serosanguineous fluid on bandage. Viable pink tissue with no purulent drainage, fluctuance, or signs of necrosis. Surrounding erythema and edema decreased from yesterday. Resp: Effort & Inspection: normal respiratory effort Auscultation: clear to auscultation bilaterally Cardio: Rate: regular rate Rhythm: regular rhythm Other: S1-S2 present without murmur, rub, ectopy GI: Other: Abdomen soft, nondistended, nontender. Normoactive bowel sounds in all quadrants. Skin: General skin exam: no rashes or lesions noted Other: See chest exam. Neuro: Cranial nerves: Yes Equal, round and reactive pupils present Speech: normal speech Motor exam (neuro): 5/5 motor strength present throughout Sensory Exam: normal sensation Other: A&O x4 Extrem: General: normal to inspection Psych: Mental Status: mental status grossly normal Affect: normal affect Other: Good insight and judgment, very pleasant DS: Data Data Completed and Pending Labs on day of discharge: Labs from last 24 hours 10/30/24 06:18 WBC 9.0 RBC 4.39 Hgb 13.1 Hct 41.1 MCV 93.6 MCH 29.8 MCHC 31.9 L RDW 13.5 Plt Count 297 MPV 9.6 Immature Gran % (Auto) 0.2 Neut % (Auto) 41.1 L Lymph % (Auto) 48.5 H Pickett % (Auto) 8.3 Eos % (Auto) 1.0 Baso % (Auto) 0.9 Lymph # (Auto) 4.35 H Pickett # (Auto) 0.7 H Eos # (Auto) 0.1 Baso # (Auto) 0.1 Abs Immat Gran (auto) 0.02 Absolute Neuts (auto) 3.7 Absolute Nucleated RBC 0.000 Band Neutrophils % Not Reportable Nucleated RBC % 0.0 Atypical Lymphocytes Present Platelet Estimate Adequate Schistocytes None seen Sodium 138 Potassium 3.9 Chloride 105 Carbon Dioxide 26 Anion Gap 7 BUN 12 Creatinine 0.90 Estim Creat Clear Calc 92 Estimated GFR > 60 Glucose 87 Calcium 8.8 Total Bilirubin 0.2 AST 22 ALT 15 Alkaline Phosphatase 59 Total Protein 6.6 Albumin 3.7 Preliminary micro results at discharge 10/28/24 10:26 Anaerobic Culture - Preliminary Abscess Aerobic Culture - Preliminary 10/26/24 14:25 Blood Culture - Preliminary Blood 10/26/24 14:25 Blood Culture - Preliminary Blood Discharge Plan Discharge Attending physician on discharge: Zulma Box Consulting providers: Charlie Sagastume; Steve Lofton Discharging Clinician: Charlie Sagastume Anticipated Discharge Date/Time: 10/30/24 10:15 Patient Disposition: Home Activity: as tolerated Diet: as tolerated Wound Care Instructions: change dressing daily and other - see discharge instructions Discharge Instructions: Cultures growing normal skin maximilian--recommend antibiotics of Hospitalist choice for 7 more days. Wound Care Instructions: * Change bandage daily with 4x4 gauze and tape * OK to shower, no bathing/soaking under water until wound completely healed * Call office for increasing pain, redness, or foul smelling drainage Patient Instructions: Antibiotic Form Patient Language: Northern Irish Stand Alone Forms: General Discharge Information Follow-up/Referrals: Steve Lofton DO [Physician] - 2 Weeks Discharge Medications: New linezolid 600 mg tablet 600 mg PO Q12H 7 Days Qty: 14 0RF Continued fluoxetine 20 mg capsule 20 mg PO DAILY sennosides [senna] 8.6 mg Tablet 8.6 mg PO HS Patient Comments: Says takes as needed. oxycodone-acetaminophen [Percocet] 5-325 mg tablet 1 - 2 tablet PO Q6H PRN (Reason: pain) Qty: 30 0RF Date of admission: 10/26/24 14:44 Primary Care Provider: Glory,Maria De Jesus Alberts Admitting Provider: Rosie Fontanez Attending physician on admission: Rosie oFntanez Condition: Stable Quality VTE Prophylaxis VTE prophylaxis: mechanical ordered
== END 2024-10-30 11:35 | disposition home or self-care (01) ==
LOC: ANHED 12:04 → ANH3MEDSUR 18:54
PROVIDERS: Nurse Practitioner Family; Student in an Organized Health Care Education/Training Program; Surgery; Admitting Provider Internal Medicine; Emergency Provider Physician Assistant; PCP Physician Assistant; Visit Provider Internal Medicine
PROC: (CPT 10061; principal; 2024-10-28 10:00)
DX: N61.1 Abscess of the breast and nipple (principal); F17.210 Nicotine dependence, cigarettes, uncomplicated; F32.A Depression, unspecified; F41.9 Anxiety disorder, unspecified; J45.909 Unspecified asthma, uncomplicated; G43.909 Migraine, unspecified, not intractable, without status migrainosus; E66.9 Obesity, unspecified; Z68.32 Body mass index [BMI] 32.0-32.9, adult; Z79.899 Other long term (current) drug therapy
CPT/HCPCS: 10061; 36415; 76641; 77049; 80048; 80053; 83605; 85025; 85652; 86140; 87040; 87070; 87075; 87205; 96365; 96366; 96375; 99285; A9270; A9577; C8908; G0378; J1100; J1450; J2250; J2270; J2405; J2704; J3010; J3370; J7120

== ENCOUNTER 2024-12-25 08:47 | Outpatient (CLI) | payer OTHER, SELFPAY ==
--- NOTE | ~2024-12-25 | MMUS_ITS ---
EXAMINATION: US breast LT complete, MM diagnostic randy LT w rick HISTORY: Follow-up abscess TECHNIQUE: Additional 3-D tomosynthesis images of the left breast were performed and synthetic 2-D im ages were generated. CAD analysis was submitted and interpreted. High resolution complete left breast ultrasound was performed. COMPARISON: Ultrasound dated 10/26/2024 BREAST PARENCHYMAL COMPOSITION: Dense: The breasts are heterogeneously dense, which may obscure small masses FINDINGS: MAMMOGRAPHIC FINDINGS: There are no suspicious masses, calcifications or architectural distortion in the left breast to sugg est malignancy. ULTRASOUND: Complete US of all 4 quadrants of the left breast/s and retroareolar region was reviewed. Normal hete rogeneous soft tissues without discrete solid or cystic mass. Mild phlegmonous changes present in the subareolar location of the left breast without discrete abscess. Findings have improved significantl y since prior examination dated 10/26/2024. IMPRESSION: 1. Near complete resolution of phlegmonous change in the subareolar location of the left breast. No e vidence for malignancy in the left breast. No walled off fluid collection to suggest abscess. 2. Recommend follow-up ultrasound as clinically warranted. BI-RADS Category 2: Benign finding(s). Reviewed, dictated and finalized at location A. IMPRESSION: 1. Near complete resolution of phlegmonous change in the subareolar location of the left breast. No evidence for malignancy in the left breast. No walled off fluid collection to suggest abscess. 2. Recommend follow-up ultrasound as clinically warranted. BI-RADS Category 2: Benign finding(s).
--- OUTSIDE RECORDS SUMMARY | 2024-12-25 08:50 | XMS_ITS | Encounter Summary ---
Author Organization [facility] Address [address] [place] [address] Phone Care Team Providers Care Rental Car Ferry Driver Name Role Phone Shailesh Munguia MD Primary Care Provider [phone]- [phone] Melanie Olvera DO Unavailable [phone] Maria De Jesus Holder Primary Care Provider [phone] Encounter Details Date Type Department Care Team (Late st Contact Info) Description 06/12/2021 Orders Only [facility] [address] [place] [address] Scanning, Provider Social History Tobacco Use Types Packs/Day Years Used Date Smoking Tobacco: Heavy Smoker Comments:Smoking History Pac ks/day: 0.5 Packs Alcohol Use Standard Drinks/Week Comments No 0 (1 standard drink = 0.6 oz pur e alcohol) Comments Unknown Sex and Gender Information Value Date Recorded Sex Assigned at Not on file Legal Sex Female 6:09 PM FEED WEIGHER Gender Identity Not on file Sexual Orientation [...] on filedocumented in this encounter Care Teams Rental Car Ferry Driver Relationship Specialty Start Date End Date Shailesh Munguia MD [address] [place] [address] PCP - General Family Medicine 04/01/20 07/07/23 Maria De Jesus Holder PA [address] [address] [place] [address] PCP - General Addiction Nurse 07/08/23 Melanie Olvera DO [address] [place] [address] Consulting Physician Obstetrics and Gynecology 02/08/22 documented as of this encounter
--- OUTSIDE RECORDS SUMMARY | 2024-12-25 08:50 | XMS_ITS | Clinical Summary ---
Author Organization [place] [address] [facility] Address [address] [place] [address] Care Team Providers Care Crop Ranch Hand Name Role Phone Melanie Olvera DO Unavailable [phone] Maria De Jesus Holder Primary Care Provider [phone] Allergies Active Allergy Reactions Criticality Noted Date [...] Overview (01/26/2022): CASSANDRA from Dr. Munguia in [place] Dated by LMP c/w 8 wk PNL: [...] Date Smoking Tobacco: Every Day Cigarettes 0.5 10.6 Started: 2014 Smokeless Tobacco: Never Tobacco Cessation:Ready [...] on file Legal Sex Female 6:09 PM PORTABLE SAWMILL OPERATOR Gender Identity Not on file Sexual Orientation [...] Complications:None,Precipito us Labor (<3 hours) Delivery Location:This [facility] Last Filed Vital [...] Cancer Screening 03/22/2023 03/22/2022, Influenza Vaccine (#1) 2025 3, 02/23/2013, 03/06/2010, Additional history exists DTaP/Tdap/Td Vaccine (9 - Td or Tdap) 01/12/2032 01/11/2022, 12/21/2014, 12/26/2006, Additional history exists Hepatitis B Screening Completed 07/09/1994 , 01/11/1994, 1993 HPV Vaccines Completed 08/29/2007, 02/10, 12/26/2006 Hepatitis C Screening Completed 05/12/2014 Procedures Procedure Name Priority Date/Time Associated Diagnosis Comments PAP WITH REFLEX TO HIGH RISK HPV Routine 03/22/2022 11:29 AM PORTABLE SAWMILL OPERATOR Screening for malignant neoplasm of cervix SERUM HEPATITIS C AB Routine 05/12/2014 11:32 AM PORTABLE SAWMILL OPERATOR from Last 3 Months or Most Recently Relevant to Health Maintenance Results * Pap with reflex to High Risk HPV (03/22/2022 11:29 AM PORTABLE SAWMILL OPERATOR) Thin prep (Pap test) 03/22/2022 11:29 AM PORTABLE SAWMILL OPERATOR 03/22/2022 11:29 AM PORTABLE SAWMILL OPERATOR Narrative PATHOLOGY CH - 03/26/2022 1:38 PM PORTABLE SAWMILL OPERATOR [facility] Department of Pathology [address] [place] [id number] Final Report Note to Patients: This [...] the details. Patient Name: BIRGIT ERICKSON Address: [address] [place] [address]- Gender: F : 1995 (Age: 26) Service: Laboratory Location: Hospital #: [id number] Patient Type: SPECIMEN Taken: 03/22/2022 Received: 03/22/2022 Accessioned:: 03/23/2022 Reported: 03/26/2022 Physician(s): Kalpesh Zuleta D.O. Diagnosis: Source of Specimen: Imaged Thinprep Pap Test w/ Reflex HPV - Coding Team Lead Cytologic Material Specimen Adequacy: - Satisfactory for evaluation; endocervical/transformation zone component present General Category: - Negative for intraepithelial lesion or malignancy HUMBERTO Rayo(ASCP) Report Electronically Reviewed and Signed Out By HUMBERTO Rayo(ASCP) 03/26/2022 13:38:59Specimen(s) Received: A: Imaged Thinprep Pap Test w/ Reflex HPV - Coding Team Lead Cytologic Material Clinical History: Menstrual History: Post-menopausal [...] determined by the Surgical Pathology Department at [facility] as part of an ongoing quality control assistant program and in compliance with federally mandated [...] characteristics determined by the Surgical Pathology Department [facility]. It has not been cleared or approved by the U. S. Food and Drug Administration. Melanie Olvera DO LAB CYTOLOGY ORDERABLES Final Result PATHOLOGY CH [address] [place] [address] * Serum Hepatitis C ab (05/12/2014 11:32 AM PORTABLE SAWMILL OPERATOR) HCV ab Negative Negative HISTORICAL RESULTS Serum 05/12/2014 11:3 2 AM PORTABLE SAWMILL OPERATOR Lurdes Wang MD LAB BLOOD ORDERABLE S Final Result Performing Organization Address City/[facility] de Phone Number HISTORICAL RESULTS from Last 3 Months or Most Recently Relevant to Health Maintenance Insurance IDPA ISMAEL BROOKS Member Subscriber Plan / Payer (Ef fective 2023-Present) Name:Birgit Erickson Relation to Subscriber:Self Name:Birgit Erickson Payer ID:[id number] (NAIC) Group ID:[id number] Type:CIGNA HMO/PPO Address: [place] [address] ISMAEL BROOKS Member Subscriber Plan / Payer ( fective 2023-Present) Name:Birgit Erickson Relation to Subscriber:Self Name:Birgit Erickson Payer ID:[id number] (NAIC) Group ID:[id number] Type:CIGNA HMO/PPO Address: [place] [address] Advance Directives For more information, please contact: [phone] * Full Code (Latest Code Status on File) Date Activated Date Inactivated Comments 02/07/2022 12:43 PM 02/08/2022 4:59 PM * Full Code Date Activated Date Inactivated Comments 02/07/2022 3:26 AM 02/07/2022 12:43 PM Full CPR in case of cardiopulmonary arrest Care Teams Crop Ranch Hand Relationship Specialty Start Date End Date Maria De Jesus Holder PA [address] [address] [place] [address] PCP - General Senior Operations Manager 07/08/23 Melanie Olvera DO [address] [place] [address] Consulting Physician Obstetrics and Gynecology 02/08/22
--- OUTSIDE RECORDS SUMMARY | 2024-12-25 08:50 | XMS_ITS | Clinical Summary ---
Author Organization [facility] Address [facility] [place] [address] Care Team Providers Care Roller Pneumatic Name Role Phone Shailesh Munguia MD Primary [...] on file Legal Sex Female 5:47 PM SOCIAL MEDIA SENIOR ASSOCIATE Gender Identity Not on file Sexual Orientation Not on file Last Filed Vital Signs Vital Sign Reading Time Taken Comments Blood Pressure 134/73 10/12/2021 6:38 PM CDT Pulse 90 10/12/2021 6:38 PM CDT Temperature 37.1 C (98.8 F) 10/12/2021 6:37 PM CDT Respiratory Rate 20 10/12/2021 6:46 PM CDT Oxygen Saturation 98% 04/13/2020 1:45 PM SOCIAL MEDIA SENIOR ASSOCIATE Inhaled Oxygen Concentration - - Weight 117.9 kg (260 lb) 05/24/2020 10:41 AM SOCIAL MEDIA SENIOR ASSOCIATE Height 167.6 cm (5' 6) 05/24/2020 10:41 AM SOCIAL MEDIA SENIOR ASSOCIATE Body Mass Index 41.97 05/24/2020 10:41 AM SOCIAL MEDIA SENIOR ASSOCIATE Plan of Treatment Health Maintenance Due Date Last Done Comments Cervical Cancer Screening Pa p Smear (Age 30 to 64) Every 3 Years 1993 Annual Physical 1996 Hepatitis C 12/08/2011 DTaP, Tdap and Td Vaccines ( 1 - Tdap) 2012 Hepatitis B Vaccines (1 of 3 - 19+ 3-dose series) 2012 Pneumococcal Vaccine: Pediat rics (0 to 5 Years) and At-Risk Patients (6 to 49 Years) (1 of 2 - PCV) 2012 HPV Vaccines (1 - 3-dose SCD M series) 2020 Cervical Cancer Screening Pa p with HPV Testing (Age 30 to 64) Every 5 Years 12/08/2023 Cervical Cancer Screening with HPV 12/08/2023 COVID-19 Vaccine ( - 2023-2 5 season) 2024 Meningococcal B Vaccine Aged Out No l onger eligible based on patient's age to complete this topic Meningococcal Vaccine Aged Out No jona radha eligible based on patient's age to complete this topic RSV Immunizations Under 20 Months Aged Out No longer eligible based on patient's age to complete this topic Medical Devices Implanted Type Area General Teller Device Identifier Shelf Expiration Date Model / Serial / Lot 1.7mm 10-Hole Narrow T- Plate Implanted:Qty: 1 on 04/13/2020 by Lukas Rogers MD at [facility] Right: Finger [id number] / / 1.7 X 8mm Nl Screw Implanted:Qty: 1 on 04/13/2020 by Lukas Rogers MD at [facility] Right: Finger [id number] / / 1.7 X 11mm L Screw Implanted:Qty: 1 on 04/13/2020 by Lukas Rogers MD at [facility] Right: Finger [id number] / / 1.7 X 9mm L Screw Implanted:Qty: 2 on 04/13/2020 by Lukas Rogers MD at [facility] Right: Finger [id number] / / 1.7 X 10mm L Screw Implanted:Qty: 1 on 04/13/2020 by Lukas Rogers MD at [facility] Right: Finger [id number] / / 1.7 X 7mm Nl Screw Implanted:Qty: 1 on 04/13/2020 by Lukas Rogers MD at [facility] Right: Finger [id number] / / 1.7 X 7mml Screw Implanted:Qty: 2 on 04/13/2020 by Lukas Rogers MD at [facility] Right: Finger [id number] / / Explanted Type Area General Teller Device Identifier Shelf Expiration Date Model / Serial / Lot 1.4mm Drill Bit Implanted:Qty: 1 Explanted:Qty: 1 on 04/13/2020 at [facility] Right: Finger [id number] / / Insurance [facility] [place] [id number] [facility] Care Teams Roller Pneumatic Relationship Specialty Start Date End Date Shailesh Munguia MD [address] [place] [id number] PCP - General FAMILY PRACTICE 03/25/20
--- OUTSIDE RECORDS SUMMARY | 2024-12-25 08:50 | XMS_ITS | Clinical Summary ---
Author Organization [facility] Address [address] [place] [address] Phone Care Team Providers Care Remotely Operated Vehicle Name Role Phone Maria De Jesus Holder [...] (Contrave) 8-90 MG TABLET SR 12 HRIndications:B PR 36.0-36.9,adult Start 1 tab by mouth in [...] Department Care Team Description 10/06/2024 Results Follow-Up [facility] [address] [place] [address] Maria De Jesus Holder, PAC [...] 01/25/1998, 5,07/09/1994,04/12,02/15/1994 Pneumococcal conjugate PCV20 , polysaccharide [id number] conjugate, adjuvant, PF 07/04/2022 TDAP Vaccine 01/11/2022,12/21/2014,12/26/2006 Tetanus Vaccine 12/29/2003 Varicella Vaccine Live 09/28/2024 Family History Medical History Relation Name Comments [...] drink = 0.6 oz pur e alcohol) [facility] Utilities Answer Date Recorded In the [...] often do you attend chur ch or evangelical services? 1 to 4 times per year 05/19/2024 Do you belong to any clubs o r organizations such as faith groups, unions, fraternal or athletic groups, or [...] Total Score - Questions 1-9 5 01/2025 [facility] of Occupat ional Health - Occupational Stress [...] any time in the past 12 m [facility], were you homeless or [...] Comments Blood Pressure 102/72 05/21/2024 3:17 PM PROFILER HAND Pulse 94 05/21/2024 3:17 PM PROFILER HAND Temperature 37.1 C (98.8 F) 05/21/2024 3:17 PM PROFILER HAND Respiratory Rate 16 07/11/2022 10:29 AM PROFILER HAND Oxygen Saturation 98% 05/21/2024 3:17 PM PROFILER HAND Inhaled Oxygen Concentration - - Weight 102.5 kg (226 lb) 05/21/2024 3:17 PM PROFILER HAND Height 167.6 cm (5' 6) 05/21/2024 3:17 PM PROFILER HAND Body Mass Index 36.48 05/21/2024 3:17 PM PROFILER HAND Plan of Treatment Health Maintenance Due Date Last Done Comments HPV/Cotest 12/08/2023 SARS-COV-2 Immunization ( season) 2024 Influenza Immunization (#1) 01/11/2025/2 06/2022, 02/23/2013, 03/06/2010, Additional history exists Cervical Cancer [...] this topic Medical Devices Implanted Type Area Glass Blowing Instructor Device Identifier Shelf Expiration Date Model / Serial / Lot Mesh Srg Ventralight St Sepra Echo Ps 6in Mfl Ltwt Abs Loprfl Strl Seprafilm Polyp Hydrogel Lambert - [id number] Implanted:Qty: 1 on 05/29/2022 by Shane Sena MD at [facility] IMPLANT N/A: Umbilical [employer] 11/08/2023 [id number] / [id number] / [id number] Description:Ventralight ST Low profile bioresorbable coated permanent mesh for soft tissue reconstruction Lambert mesh Bard Partially absorbable Staple Tacker Optifix At - [id number] Implanted:Qty: 2 on 05/29/2022 by Shane Sena MD at [facility] IMPLANT N/A: Umbilical [employer] 07/10/2023 [id number] / [id number] / [id number] Description:Optifix AT Absorbable fixation system with articulating technology 37cm x 5mm Cannula 30 absorbable fasteners [employer] Procedures Procedure Name Priority Date/Time Associated Diagnosis Comments SURGERY CONSULT 11/20/2024 12:00 AM CDT GENERAL SURGERY PROCEDURE 10/28/2024 12:00 AM CDT SURGERY CONSULT 10/27/2024 12:00 AM CDT MRI CHEST GENERIC 10/27/2024 12: 00 AM CDT US - CHEST 10/26/2024 12:00 AM CDT QUANTIFERON-TB GOLD PLUS Routine 10/02/2024 10:22 AM CDT Screening-pulmonary TB HEPATITIS C ANTIBODY Routine 05/21/2024 4:19 PM PROFILER HAND Encounter for hepatitis C screening test for low risk patient from Last 3 Months or Most Recently Relevant to Health Maintenance Results * SURGERY CONSULT (11/20/2024 12:00 AM CDT) Only the most recent of2 resultswithin the time period is included. 11/20/2024 us Provider Scan GENERIC SCAN ORDERS CONSULT Ana l Result SCAN * GENERAL SURGERY PROCEDURE (10/28/2024 12:00 AM CDT) 10/28/2024 us Provider Scan GEN ORDERS Final Result SCAN * MRI CHEST GENERIC (10/27/2024 12:00 AM CDT) 10/27/2024 us Provider Scan IMG MR ORDERABLES Final Result SCAN * US - CHEST (10/26/2024 12:00 AM CDT) 10/26/2024 us Provider Scan IMG US ORDERABLES Final Result SCAN * QUANTIFERON-TB GOLD PLUS (10/02/2024 10:22 AM CDT) NIL CONTROL 0.01 <8.01 IU/mL 10/04/2024 8:29 AM CDT [facility] TB ANTIGEN 1 0.00 <0.35 IU/mL 10/04/2024 8:[address] [facility] TB ANTIGEN 2 0.00 <0.35 IU/mL 10/04/2024 8:[address] [facility] MITOGEN CONTROL 9.99 >0.49 IU/mL 10/05/19 8:[address] [facility] INTEPRETATION TB NEGATIVE NEGATIVE, NEGATIVE (TB antigen response less than 25% of internal negative control value) 10/04/2024 8:[address] [facility] Comment:No immune response t o Mycobacterium tuberculosis antigens was noted. M. tuberculosis infection unlikely. Blood Venipuncture / Unknown 10/02/2024 10:22 AM CDT 10/02/2024 11:[address] [facility] - 10/04/2024 8:29 AM CDT A POSITIVE [...] De Jesus Holder PAC IMMUNOLOGY ORDERABLES Fi [facility] Result [facility] [address] [place] [address], * HEPATITIS C ANTIBODY (05/21/2024 4:19 PM PROFILER HAND) hepatitis C antibody 0.21 <1 S/CO 05/21/2024 10:[address] [facility] Comment: Signal/Cutoff ratio < 0.79 is Nondetected Signal/Cutoff ratio 0.80-0.99 is Grayzone Signal/Cutoff ratio > 0.99 is Detected Supplemental assays are recommended if signal/cutoff ratio is >/=1.00. Signal/cutoff ratio result >/= 5.00 is 97% predictive of positivity for recombinant immunoblot assay (RIBA) and will be reported to the [place] Department of Public Health as required. Blood Venipuncture / Unknown 05/21/2024 4:19 PM PROFILER HAND 05/21/2024 4:41 PM PROFILER HAND us Maria De Jesus Holder PAC CHEMISTRY ORDERABLES Fin al Result [facility] [address] [place] [address], [place] from Last 3 Months or Most Recently Relevant to Health Maintenance Insurance [employer] Care Teams Remotely Operated Vehicle Relationship Specialty Start Date End Date Maria De Jesus Holder [address] [place] [address] PCP - General Physician Global Account Director 03/15/22 Shane Sena MD [address] [address] Consulting Physician General Surgery 04/12/22
--- OUTSIDE RECORDS SUMMARY | 2024-12-25 08:50 | XMS_ITS | Encounter Summary ---
Author Organization [facility] Address [address] [place] [address] Phone Care Team Providers Care Passport Support Manager Name Role Phone Shailesh Munguia MD Primary Care Provider [phone]- [phone] Melanie Olvera DO Unavailable [phone] Maria De Jesus Holder Primary Care Provider [phone] Encounter Details Date Type Department Care Team (Late st Contact Info) Description 11/09/2021 Orders Only [facility] [address] [place] [address] Scanning, Provider Social History Tobacco Use Types Packs/Day Years Used Date Smoking Tobacco: Heavy Smoker Comments:Smoking History Pac ks/day: 0.5 Packs Alcohol Use Standard Drinks/Week Comments No 0 (1 standard drink = 0.6 oz pur e alcohol) Comments Unknown Sex and Gender Information Value Date Recorded Sex Assigned at Not on file Legal Sex 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
--- OUTSIDE RECORDS SUMMARY | 2024-12-25 08:50 | XMS_ITS | Encounter Summary ---
Author Organization [facility] Address [address] [place] [address] Phone Care Team Providers Care Ve Teacher Name Role Phone Maria De Jesus Holder Primary Care Provider + Shane Sena MD Unavailable [phone] Reason for Visit * Reason Comments Medication Refill Encounter Details Date Type Department Care Team (Late st Contact Info) Description 06/25/2022 Refill [facility] - Family Medicine [facility] [address] [place] [address] Maria De Jesus Holder PAC [address] [place] [address] Medication Refill Social History Tobacco Use Types [...] Coronavirus/COVID-19? No / Unsure 06/13/2022 10:05 AM OUTBOUND SALES PROFESSIONAL documented as of this encounter Miscellaneous Notes [...] Office Visit Maria De Jesus Holder PAC [facility] 04/04/22 Office Visit Maria De Jesus Holder PAC [facility] Showing recent visits within past 182 days and meeting all other requirements Future Appointments Date Type Provider Dept 07/11/22 Appointment Maria De Jesus Holder PAC [facility] Showing future appointments within next 90 days and meeting all other requirements Passed - Has an encounter in the past 6 months with a depression, anxiety, adjustment disorder, OCD, or PTSD visit diagnosis OUND SALES PROFESSIONAL documented in this encounter Plan of Treatment Not on file documented as of this encounter Visit Diagnoses Not on filedocumented in this encounter Additional Health Concerns Assessment Noted Time PHQ-9 Depression Total Score: 3 04/04/20 3:00 PM OUTBOUND SALES PROFESSIONAL documented as of this encounter Care Teams Ve Teacher Relationship Specialty Start Date End Date Maria De Jesus Holder PAC [address] [place] [address] PCP - General Physician Psych Np 03/15/22 Shane Sena MD [address] [address] Consulting Physician General Surgery 04/12/22 documented as of this encounter
--- OUTSIDE RECORDS SUMMARY | 2024-12-25 08:50 | XMS_ITS | Clinical Summary ---
Author Organization [facility] [employer] Address [address] [place] [address] Care Team Providers Care Airplane Dispatch Clerk Name Role Phone Karina Eduardo MD Primary Care Provider [phone] Source Comments [facility],non-owned Affiliates and Associated Physician Practices is amultiple site organization consisting of ambulatory clinics and hospital sitesin [place], [place], [place] and [place]. This disclosure is being madepursuant to the Care Everywhere program and may not contain all information available regarding this patient. Last updated 18.[facility] [employer] Social History Tobacco Use Types Packs/Day Years Used Date Smoking Tobacco: Never Assessed Comments Unknown Sex and Gender Information Value Date Recorded Sex Assigned at Not on file Legal Sex Female 6:22 PM FISH TRAPPER Gender Identity Not on file Sexual Orientation Not on file Plan of Treatment Health Maintenance Due Date Last Done Comments HIV SCREENING 2008 HEPATITIS C SCREENING 12/03/2011 DTAP/TDAP/TD VACCINES (1 - Tdap) 2012 HEPATITIS B VACCINE (1 of 3 - 19+ 3-dose series) 2012 HPV VACCINE (1 - 3-dose SCDM series) 2020 COVID-19 VACCINE (1 - 2023- season) 2024 DEPRESSION SCREENING 05/13/2024 INFLUENZA VACCINE (#1) 2025 , 02/23/2013, 03/06/2010, Additional history exists PAP SMEAR [...] patient's age to complete this topic Insurance MEDICAID - OUT OF STATE SELF PAY NO INSURANCE Member Subscriber Plan / Payer (Ef fective for All Dates) Name:Birgit Erickson Member ID:Not on file Relation to Subscriber:Not on file Name:BIRGIT ERICKSON Subscriber ID:Not on file (Home) Address: [address] [place] [id number] Payer ID:Not on file Group ID:Not on file Type:Self Pay Address: [place], [place] [employer] Care Teams Airplane Dispatch Clerk Relationship Specialty Start Date End Date Karina Eduardo MD [address] [place] [id number] PCP - General 02/09/10
== END 2024-12-25 08:48 | disposition home or self-care (01) ==
LOC: CHSIMG 08:48
PROVIDERS: PCP Physician Assistant; Visit Provider Surgery
DX: N61.1 Abscess of the breast and nipple (principal)
CPT/HCPCS: 76641; 77061; 77065; G0279